=== PATIENT | female | born 1950 | race Caucasian/White ===

== ENCOUNTER 2022-05-25 12:16 | Inpatient (IN) | payer MEDICARE, BC, SELFPAY ==
[2022-05-25] VITALS (15 sets, daily range): BP systolic 98–144; BP diastolic 43–90; PULSE 68–82; RESP 12–20; TEMP 35.5–36.7; O2SAT 94–100; BMI 30.4; BMI 31.2
--- NOTE | 2022-05-25 12:26 | ED.RN ---
PT REQUESTING PAIN MEDS STATING THE [employer] [facility] [place] DID NOT DO ANYTHING. EXPLAINED THAT THE NEEDED TO SEE HER FIRST AND THEY WOULD BE CINDY THAT WE WERE A LITTLE BUSY. BUT IS ANYONE BAD ME? I KNOW YOUR SUPPOSED TO TAKE THE MOST SERIOUS FIRST!
--- NOTE | 2022-05-25 12:48 | EDS_ITS ---
HPI History of Present Illness HPI Narrative: 71-year-old female tripped over her dog fell down 3-4 steps injuring her right ankle. Denies hitting her head. No LOC. Denies other complaints. Brought in by squad. Treated with pain medication prior to arrival. Chief Complaint: Lower Extremity Injury Informant: patient and family Occured/Mechanism Mechanism/Context: Yes injury and Yes blunt trauma Onset/Context/Timing Onset: Today Context: Sudden Onset Timing: Continuous Quality of Pain: Sharp and Stabbing Current Severity: Severe Maximum Severity: Severe Associated Symptoms Associated Symptoms: Positive for Loss of Funtion; Negative for Parasthesia or Weakness Narrative Narrative: 71-year-old female history of diabetes and renal insufficiency. States she is from out of town. She is watching her daughter's dogs while her daughter is on vacation. She tripped over one of the dogs when she was walking on the steps and fell down 3-4 steps injuring her right ankle. She denies hitting her head or having any LOC. Denies other complaints. Is having severe pain to her right ankle. Prior similar symptoms: No Recent Illness/Hospitalization: No PFSH PFSH Medical History (Updated 05/25/22 @ 15:[address] Lei Land MD) Diabetes Renal insufficiency Allergy/AdvReac Type Severity Reaction Status Date / Time No Known Allergies Allergy Verified 05/25/22 12:18 Social History Smoking Status: Smoker, status unknown ROS ROS ED ROS Narrative Denies recent illness. Review of Systems ROS Unobtainable: Denies due to encephalopathy Constitutional Constitutional ED: Denies chills or fever(s) Eyes Eyes: Denies blurry vision ENT ENT ED: Denies ear pain Cardiovascular Cardiovascular: Denies chest pain Respiratory/Chest Respiratory/Chest: Denies cough Gastrointestinal Gastrointestinal: Denies abdominal pain Genitourinary Genitourinary ED: Denies dysuria Musculoskeletal Musculoskeletal: Denies arthralgias Integumentary Denies abscess Neurologic Neurologic: Denies headache(s) Psychiatric Psychiatric: Denies anxiety Endocrine Endocrinology: Denies polydipsia Hematologic/Lymphatic Hematologic/Lymphatic: Denies easy bleeding Allergic/Immunologic Allergic/Immunologic ED: Denies mouth swelling or tongue swelling EXAM Physical Exam Narrative Exam Narrative: 71-year-old female lying in bed. She has an air splint on her right lower extremity. Complaining of pain. Vital signs are stable and afebrile. Blood pressure 144/61. Pulse ox 99% on room air no hypoxia. H EENT exam unremarkable atraumatic. Pupils round reactive light. Speaking normally. C-spine trachea midline nontender. Spine nontender. Lungs clear. Heart regular rhythm no murmur. Rate about 75. Chest wall and ribs nontender. Abdomen soft nontender. No peritoneal signs. Pelvic girdle intact. Hips are nontender. There is no rotation or shortening. She has significant tenderness and deformity of her right ankle. Is inverted medially. There is an abrasion to the skin anteriorly. The right hip right knee and proximal lower leg are nontender. Neurologically she is awake and alert. She will not move the right foot and ankle due to pain. Otherwise she has no gross motor deformities. Const Vital Signs: 05/25/22 12:18 05/25/22 12:33 05/25/22 13:22 Temperature 96 F L Temperature Source Temporal Pulse Rate 76 76 79 Pulse Rate [1 (Initial Baseline)] Pulse Rate [2] Pulse Rate [3] Pulse Rate [4] Pulse Rate [5] Pulse Rate [6] Pulse Rate [7] Respiratory Rate 14 18 20 H Respiratory Rate [1 (Initial Baseline)] Respiratory Rate [2] Respiratory Rate [3] Respiratory Rate [4] Respiratory Rate [5] Respiratory Rate [6] Respiratory Rate [7] Blood Pressure 135/68 H 144/61 H 130/57 H Blood Pressure [1 (Initial Baseline)] Blood Pressure [2] Blood Pressure [3] Blood Pressure [4] Blood Pressure [5] Blood Pressure [6] Blood Pressure [7] Blood Pressure Mean 90 88 81 Pulse Ox 94 99 100 Oxygen Delivery Method Room Air Room Air Room Air Oxygen Delivery Method [1 (Initial Baseline)] Oxygen Delivery Method [2] Oxygen Delivery Method [3] Oxygen Delivery Method [4] Oxygen Delivery Method [5] Oxygen Delivery Method [6] Oxygen Flow Rate (L/min) [1 (Initial Baseline)] Oxygen Flow Rate (L/min) [2] Oxygen Flow Rate (L/min) [3] Oxygen Flow Rate (L/min) [4] Oxygen Flow Rate (L/min) [5] Oxygen Flow Rate (L/min) [6] 05/25/22 13:22 05/25/22 14:05 05/25/22 13:24 Temperature Temperature Source Pulse Rate 78 Pulse Rate [1 (Initial Baseline)] 77 Pulse Rate [2] 82 Pulse Rate [3] 82 Pulse Rate [4] 77 Pulse Rate [5] 76 Pulse Rate [6] 75 Pulse Rate [7] 72 Respiratory Rate 18 Respiratory Rate [1 (Initial Baseline)] 20 H Respiratory Rate [2] 18 Respiratory Rate [3] 18 Respiratory Rate [4] 18 Respiratory Rate [5] 18 Respiratory Rate [6] 16 Respiratory Rate [7] 18 Blood Pressure 133/60 H Blood Pressure [1 (Initial Baseline)] 130/57 H Blood Pressure [2] 128/86 H Blood Pressure [3] 128/86 H Blood Pressure [4] 140/56 H Blood Pressure [5] 135/50 H Blood Pressure [6] 118/50 L Blood Pressure [7] 134/60 H Blood Pressure Mean 84 Pulse Ox 98 Oxygen Delivery Method Room Air Room Air Oxygen Delivery Method [1 (Initial Baseline)] Nasal Cannula Oxygen Delivery Method [2] Nasal Cannula Oxygen Delivery Method [3] Nasal Cannula Oxygen Delivery Method [4] Nasal Cannula Oxygen Delivery Method [5] Nasal Cannula Oxygen Delivery Method [6] Nasal Cannula Oxygen Flow Rate (L/min) [1 (Initial Baseline)] 6 Oxygen Flow Rate (L/min) [2] 6 Oxygen Flow Rate (L/min) [3] 6 Oxygen Flow Rate (L/min) [4] 6 Oxygen Flow Rate (L/min) [5] 6 Oxygen Flow Rate (L/min) [6] 3 Positive well nourished and well developed; Negative for cachectic, contractures or unkempt General Appearance ED: well developed and NAD; Negative for unkempt, cachectic or contractures Nutritional Appearance: Negative for cachectic HEENT Reports moist mucous membranes normocephalic and atraumatic; Negative for trauma or tenderness Eyes PERRL Neck full ROM and supple Thyroid: Negative for tender Lymph Lymphatic: Negative for other Chest Wall inspection of chest normal and palpation of chest normal Chest: Negative for other Resp normal respiratory effort, no retractions and clear to auscultation bilaterally Effort and Inspection: Negative for pain with movement Auscultation: Negative for rales, rhonchi or wheezes Cardio regular rate, regular rhythm, S1 normal heart sound, S2 normal heart sound and no murmurs GI non-tender, non-distended and no masses Inspection: Negative for abdominal distention Auscultation: normoactive bowel sounds Palpation: soft; Negative for tender or guarding Back/Spine no CVA tenderness General Back: Negative for CVA tenderness Cervical Spine: Negative for cervical spine tenderness Thoracic Spine / Upper Back: Negative for thoracic spinal tenderness Lumbar Spine / Lower Back: Negative for lumbar spinal tenderness Extremity normal to inspection and full ROM Extremity Narrative: Except the right ankle is obviously fractured and deformed. Very tender. Foot is warm to the touch. Neuro oriented x3 Sensorium / Orientation: alert, oriented to person, oriented to place and oriented to time Motor Exam: strength 5/5 throughout Psych mental status grossly normal Appearance: Negative for unkempt Speech: No other Mood & Affect: Negative for anxious Skin no wounds Skin Narrative: Abrasion right anterior ankle. Lesions: no lesions Rashes: no rashes Trauma: abrasion MDM MDM MDM Narrative Medical decision making narrative: 71-year-old fall suspect right ankle fracture may be a fracture or dislocation. She will be given morphine and Zofran for pain and nausea. X-ray being obtained of the right ankle and foot. Patient was procedurally sedated with propofol. Initially 60 mg in and 40 more for a total of 100. I was able to reduce the ankle dislocation. She was placed in a well-padded posterior splint. She has a very strong DP pulse post reduction. The foot is warm and pink. She has normal sensation. She was under procedural sedation for 10 to 15 minutes. She is now awake and alert. She has been given additional pain medication including morphine and fentanyl. Patient is doing well at 3:25 PM. I discussed at length with both her and her son. She will be admitted for pain control. I spoke with Dr. Peters on-call for podiatry. He will admit the patient. Hospitalist will be consulted for medical management. Screening labs were sent including a CBC and chemistry. Currently the patient is resting comfortably in bed son at bedside. Radiography Diagnostic Testing: Clinical Impression(s) from Imaging Studies Ankle X-Ray 05/25/22 12:50 IMPRESSION: 1. The talus is laterally dislocated from the navicular bone and has an abnormal orientation in regards to the calcaneus. Several bony densities overlie the medial malleolus region, and it is not clear if this represents a fracture fragment or a developmental ossicle due to the bony overlap. 2. Repeat examination after reduction recommended or further assessment with noncontrast CT. Electronically Signed: Jose Manuel Shea MD at 13:34 EST Reading Location ID and State: [address] [place] [address] , Service support , Foot X-Ray 05/25/22 12:50 IMPRESSION: 1. The talus is laterally dislocated from the navicular bone and has an abnormal orientation in regards to the calcaneus. Several bony densities overlie the medial malleolus region, and it is not clear if this represents a fracture fragment or a developmental ossicle due to the bony overlap. Electronically Signed: Jose Manuel Shea MD at 13:38 EST Reading Location ID and State: [address] [place] [address] , Service support , Tibia/Fibula X-Ray 05/25/22 12:50 IMPRESSION: 1. Dislocation injury of the ankle described under 2 separate report 2. Normal x-ray examination of the tibia and fibula. Electronically Signed: Jose Manuel Shea MD at 13:40 EST Reading Location ID and State: [address] [place] [address] , Service support , Ankle X-Ray 05/25/22 13:40 IMPRESSION: 1. The previously dislocated talus from the navicular bone has been reduced with now normal articulation of the talonavicular space. 2. Medial and lateral malleoli small avulsive fractures are present in the undersurface regions. 3. A comminuted fracture of the mid to posterior aspect of the talus is also visualized. Electronically Signed: Jose Manuel Shea MD at 15:05 EST Reading Location ID and State: [address] [place] [address] , Service support , Lower Extremity CT 05/25/22 13:48 IMPRESSION: 1. Status post reduction of the talus which now demonstrates normal articulation with the navicular bone 2. Comminuted fracture of the body of the talus 3. Chip fracture at the anterior dorsal surface of the talus 4. Medial and lateral malleoli fractures Tiny corner fracture at the anterior aspect of the calcaneus Electronically Signed: Jose Manuel Shea MD at 14:57 EST Reading Location ID and State: [address] [place] [address] , Service support , Right ankle x-ray 3 views interpreted by myself shows a subtalar dislocation. No obvious fracture on the initial films. But from the concern for talus fracture versus other fractures are not visualized at this time. Repeat right ankle x-ray postreduction the reduction looks good. There does appear to be comminuted talus fracture. CAT scan pending. CAT scan of the right ankle shows comminuted talus fracture. Successful reduction of the dislocation. Avulsion fracture of the medial lateral malleolus is read by the radiologist. Right foot x-ray 3 views interpreted by myself shows the subtalar dislocation. There are no fractures visualized in the foot otherwise. Tib-fib x-ray on the right 4 views interpreted myself and the radiologist shows the subtalar dislocation but no fractures. All the films were read both by myself and the radiologist. Procedures Lower Extremity Splints Lower Extremity Splint: Orthoglass Splint Fabrication: Fabricated Location: Right Procedural Sedation Right ankle subtalar dislocation with procedural sedation: Consent Signed: Yes Any Problems With Anesthesia: No You/Your family experience fever (hyperthermia) w/anesthesia: No Sedation medication: Propofol Dose: 100 Route: IV Total Moderate Sedation Units: 10 Mallampati Score: Class II ASA Classification: II Comment:: Patient has a right ankle dislocation. He was treated with initially 60 mg of propofol and then 40 more. When appropriate procedural sedation was obtained I was able to manually using traction reduce the ankle. She was placed in a well- padded short leg posterior splint. She did have anterior ankle abrasions. No significant lacerations. She has a very palpable DP pulse after the reduction. The foot is warm and pink. She has normal sensation. She tolerated the procedural sedation quite well. She was also treated with morphine for pain. Discharge Plan Triage Chief Complaint: Lower Extremity Injury ED Provider: Lei Land Dx/Rx/DC Orders Clinical Impression: Fall, Ankle fracture, right, Closed dislocation of right ankle Primary Care Provider: Care Physician,No Primary Referrals: Care Physician,No Primary [Primary Care Provider] - Disposition Disposition: Acute Care Hospital [facility]
--- NOTE | 2022-05-25 12:50 | RAD_ITS ---
STUDY: X-RAY - RIGHT ANKLE REASON FOR EXAM: Female, 71 years old. trauma FELL DOWN THE STAIRS, DEFORMITY TECHNIQUE: 3 view(s) of the ankle. COMPARISON: None. FINDINGS: The talus is laterally dislocated from the navicular bone and has an abnormal orientation in regards to the calcaneus. Several bony densities overlie the medial malleolus region, and it is not clear if this represents a fracture fragment or a developmental ossicle due to the bony overlap. Normal visualized distal tibia and fibula. Normal medial and lateral malleoli. Normal tibiotalar articulation and ankle mortise. The visualized subtalar,calcaneocuboid and tarsal articulations are normal. The soft tissue structures are unremarkable. RAD/Ankle min 3 Views IMPRESSION: 1. The talus is laterally dislocated from the navicular bone and has an abnormal orientation in regards to the calcaneus. Several bony densities overlie the medial malleolus region, and it is not clear if this represents a fracture fragment or a developmental ossicle due to the bony overlap. 2. Repeat examination after reduction recommended or further assessment with noncontrast CT. Electronically Signed: Jose Manuel Shea MD at 13:34 EST ,
--- NOTE | 2022-05-25 12:50 | RAD_ITS ---
STUDY: X-RAY - RIGHT FOOT CLINICAL: Female, 71 years old. trauma TECHNIQUE: 3 view(s) of the foot. COMPARISON: Right ankle x-ray dated May 25, 2022 FINDINGS: The talus is laterally dislocated from the navicular bone and has an abnormal orientation in regards to the calcaneus. Several bony densities overlie the medial malleolus region, and it is not clear if this represents a fracture fragment or a developmental ossicle due to the bony overlap. Normal metatarsi. Normal metatarsophalangeal joint of the great toe. Normal tibial and fibular sesamoid bones. Normal interphalangeal joint of the great toe. Normal phalanges of the great toe. Normal second through fifth metatarsophalangeal joints. Normal interphalangeal joints and phalanges of the lesser toes. The soft tissue structures are unremarkable. RAD/Foot min 3 Views IMPRESSION: 1. The talus is laterally dislocated from the navicular bone and has an abnormal orientation in regards to the calcaneus. Several bony densities overlie the medial malleolus region, and it is not clear if this represents a fracture fragment or a developmental ossicle due to the bony overlap. Electronically Signed: Jose Manuel Shea MD at 13:38 EST ,
--- NOTE | 2022-05-25 12:50 | RAD_ITS ---
STUDY: X-RAY - RIGHT TIBIA AND FIBULA REASON FOR EXAM: Female, 71 years old. FELL DOWN THE STAIRS, DEFORMITY TECHNIQUE: 4 view(s) of the tibia and fibula were obtained. COMPARISON: Right ankle and foot x-rays on the same day FINDINGS: The talus is laterally dislocated from the navicular bone and has an abnormal orientation in regards to the calcaneus. Several bony densities overlie the medial malleolus region, and it is not clear if this represents a fracture fragment or a developmental ossicle due to the bony overlap. Normal visualized tibia. Normal visualized fibula. The soft tissue structures are unremarkable. RAD/Tibia & Fibula 2 Views IMPRESSION: 1. Dislocation injury of the ankle described under 2 separate report 2. Normal x-ray examination of the tibia and fibula. Electronically Signed: Jose Manuel Shea MD at 13:40 EST ,
[2022-05-25] MEDS: Ondansetron 4 MG/2 ML Vial IV (12:56)
[2022-05-25] MEDS: morphine 8 MG/ML Syringe IV (12:56)
--- NOTE | 2022-05-25 13:03 | ED.RN ---
THIS RN INTO ROOM IMMEDIATELY AFTER PAIN MEDICATION ORDERED. RADIOLOGY IN ROOM FILMING PT. PT SON AT [employer]ORWAY. SON LOOKS AT THIS RN AND STATES DO YOU HAVE PAIN MEDICATION?'. THIS RN REPLIES YES. SON STATES WHY ARE YOU NOT IN THE ROOM GIVING IT THIS RN ATTEMPTS TO TELL SON THAT THIS RN CANNOT GO IN WHILE THEY ARE DOING X-RAYS. SON POINTS FINGER IN THIS NURSES FACE AND STATES I DON'T CARE ABOUT THAT, GO IN THE ROOM. CHARGE NURSE AWARE. STEPHY BARNARD TO BEDSIDE
--- NOTE | 2022-05-25 13:40 | RAD_ITS ---
STUDY: X-RAY - RIGHT ANKLE REASON FOR EXAM: Female, 71 years old. post reduction TECHNIQUE: 3 view(s) of the ankle. COMPARISON: Initial x-ray of the right ankle dated May 25, 2022 at 12:[address] of the right ankle dated May 25, 2022. FINDINGS: The previously dislocated talus from the navicular bone has been reduced with now normal articulation of the talonavicular space. Medial and lateral malleoli small avulsive fractures are present in the undersurface regions. A comminuted fracture of the mid to posterior aspect of the talus is also visualized. New splint material is seen around the lower leg and ankle. Normal visualized distal tibia and fibula. Normal tibiotalar articulation and ankle mortise. The visualized subtalar, talonavicular, calcaneocuboid and tarsal articulations are normal. RAD/Ankle min 3 Views IMPRESSION: 1. The previously dislocated talus from the navicular bone has been reduced with now normal articulation of the talonavicular space. 2. Medial and lateral malleoli small avulsive fractures are present in the undersurface regions. 3. A comminuted fracture of the mid to posterior aspect of the talus is also visualized. Electronically Signed: Jose Manuel Shea MD at 15:05 EST ,
--- NOTE | 2022-05-25 13:48 | CT_ITS ---
STUDY: CT RIGHT ANKLE WITHOUT CONTRAST REASON FOR EXAM: Female, 71 years old. RT ANKLE DEFORMITY. FELL DOWN STAIRS. Fracture dislocation RADIATION DOSAGE (If Supplied By Facility): CTDIvol = ( 15.35 ) mGy, DLP = ( 392.14 ) mGycm TECHNIQUE: Thin section transaxial imaging of the ankle was obtained, with sagittal and coronal reconstructed images. Individualized dose optimization techniques were used for this CT. COMPARISON: Right ankle x-ray dated May 25, 2022 FINDINGS: A large vertical fracture is present through the full width and mid to medial aspect of the body of the talus resulting in rotation and displacement of the posterior process of the talus and some smaller displaced fragments. The previously dislocated talus from the navicular bone has been reduced with now normal articulation of the talonavicular space. A small chip fracture is present at the dorsal and anterior aspect of the talus most likely due to the prior dislocation injury. The talocalcaneal ligament is also partially torn and with multiple small avulsed bony fragments from the undersurface and anterior process of the talus due to avulsion fractures. There are acute avulsive fractures at the periphery and undersurface of the lateral malleolus as well with small displaced bony fragments. A small acute corner fracture is present in the far anterior aspect of the anterior process of the calcaneus. A small avulsive fracture of the undersurface of the medial malleolus is also present with slightly displaced bony fragments. Moderate edema and subcutaneous hematoma formation is present around the ankle joint. The Achilles tendon is grossly intact. The visualized aspects of the remaining tarsal bones and metatarsal bones are unremarkable. Normal talus, calcaneus, navicular and cuboid tarsal bones. Normal subtalar, talonavicular and calcaneocuboid articulations. Normal navicular-cuneiform, cuneiform tarsal bones and intercuneiform articulations. Normal tarsometatarsal articulations and visualized metatarsi. CT/Extremity Lower without Contra IMPRESSION: 1. Status post reduction of the talus which now demonstrates normal articulation with the navicular bone 2. Comminuted fracture of the body of the talus 3. Chip fracture at the anterior dorsal surface of the talus 4. Medial and lateral malleoli fractures Tiny corner fracture at the anterior aspect of the calcaneus Electronically Signed: Jose Manuel Shea MD at 14:57 EST ,
[2022-05-25] MEDS: Propofol 200 MG/20 ML Vial 60 MG IV BOLUS (13:53)
[2022-05-25] MEDS: fentaNYL 100 MCG/2 ML Ampul 50 MCG IV (13:54)
[2022-05-25] MEDS: Propofol 200 MG/20 ML Vial 40 MG IV BOLUS (13:54)
--- NOTE | 2022-05-25 14:01 | ED.RN ---
THIS RN ATTEMPTED TO UPDATE SON ON MOTHERS CONDITION.SON REFUSES TO ACKNOWLEDGE THIS NURSE ,REFUSES TO SPEAK. PT AWARE CT ORDERED.
--- NOTE | 2022-05-25 14:04 | ED.RN ---
PER [employer] HELPER. PT SON WAS INFORMED BY [employer] OFFICER THAT IF 1 MORE INCIDENT OCCURRED IN THE DEPARTMENT HE WOULD BE ASKED TO LEAVE.
--- NOTE | 2022-05-25 14:36 | ED.RN ---
THIS RN AND PICC NURSE PLACED TA FOR PT COMFORT. DR HENSLEY IN ROOM TO DISCUSS PLAN MOVING FORWARD. PT RESTING AT THIS TIME
[2022-05-25] MEDS: 0.9% Normal Saline 1,000 ML 100 ML IV (15:57)
--- NOTE | 2022-05-25 16:08 | PN.HOSP_ITS ---
Reason for Visit Reason for Visit: Consult for medical management: Subjective Subjective 71-year-old female with past medical history of type II DM, hypertension, hyperlipidemia, anxiety/depression who is visiting from [place]. Patient is taking care of her daughter's dogs while stay away for vacation n. She was trying to come down the staircase holding a computer when she almost stepped on one of the dogs. She had 4 steps to reach to the ground. She missed a step and tumbled down. She landed on her right foot and fell. She called her grandson to call the ambulance. Pain is fairly controlled at time of being admitted. She denied any fever or chills. Objective Data Objective Data Vital Signs: Vital Signs Temp Pulse Resp BP Pulse Ox O2 Del Method O2 Flow Rate 97.8 F 70 12 98/61 98 Room Air 96 05/25/22 15:58 05/25/22 16:00 05/25/22 16:00 05/25/22 16:00 05/25/22 16:00 05/25/22 16:00 05/25/22 14:45 Oxygen Flow Rate (L/min) [6] 3 Oxygen Flow Rate (L/min) [5] 6 Oxygen Flow Rate (L/min) [4] 6 Oxygen Flow Rate (L/min) [3] 6 Oxygen Flow Rate (L/min) [2] 6 Oxygen Flow Rate (L/min) [1 ( 6 Initial Baseline)] Oxygen Flow Rate (L/min) 96 Oxygen Delivery Method [6] Nasal Cannula Oxygen Delivery Method [5] Nasal Cannula Oxygen Delivery Method [4] Nasal Cannula Oxygen Delivery Method [3] Nasal Cannula Oxygen Delivery Method [2] Nasal Cannula Oxygen Delivery Method [1 ( Nasal Cannula Initial Baseline)] Oxygen Delivery Method Room Air Weight: 83.007 kg Body Mass Index (BMI) 30.4 Intake & Output: Intake and Output for Last 24 Hours 05/23/22 05/24/22 05/25/22 23:59 23:59 23:59 Intake Total 500 / 500 Balance 500 / 500 Lab / Micro Data Result Diagrams: 05/25/22 15:52 05/25/22 15:52 Radiography Diagnostic Testing: Radiology Impression Ankle X-Ray 05/25/22 12:50 IMPRESSION: 1. The talus is laterally dislocated from the navicular bone and has an abnormal orientation in regards to the calcaneus. Several bony densities overlie the medial malleolus region, and it is not clear if this represents a fracture fragment or a developmental ossicle due to the bony overlap. 2. Repeat examination after reduction recommended or further assessment with noncontrast CT. Electronically Signed: Jose Manuel Shea MD at 13:34 EST Reading Location ID and State: [address] [place] [address] , Service support , Foot X-Ray 05/25/22 12:50 IMPRESSION: 1. The talus is laterally dislocated from the navicular bone and has an abnormal orientation in regards to the calcaneus. Several bony densities overlie the medial malleolus region, and it is not clear if this represents a fracture fragment or a developmental ossicle due to the bony overlap. Electronically Signed: Jose Manuel Shea MD at 13:38 EST Reading Location ID and State: [address] [place] [address] , Service support , Tibia/Fibula X-Ray 05/25/22 12:50 IMPRESSION: 1. Dislocation injury of the ankle described under 2 separate report 2. Normal x-ray examination of the tibia and fibula. Electronically Signed: Jose Manuel Shea MD at 13:40 EST Reading Location ID and State: [address] [place] [address] , Service support , Ankle X-Ray 05/25/22 13:40 IMPRESSION: 1. The previously dislocated talus from the navicular bone has been reduced with now normal articulation of the talonavicular space. 2. Medial and lateral malleoli small avulsive fractures are present in the undersurface regions. 3. A comminuted fracture of the mid to posterior aspect of the talus is also visualized. Electronically Signed: Jose Manuel Shea MD at 15:05 EST Reading Location ID and State: [address] [place] [address] , Service support , Lower Extremity CT 05/25/22 13:48 IMPRESSION: 1. Status post reduction of the talus which now demonstrates normal articulation with the navicular bone 2. Comminuted fracture of the body of the talus 3. Chip fracture at the anterior dorsal surface of the talus 4. Medial and lateral malleoli fractures Tiny corner fracture at the anterior aspect of the calcaneus Electronically Signed: Jose Manuel Shea MD at 14:57 EST Reading Location ID and State: [facility] / [place] , Service support , Physical Exam Narrative Physical exam: General: Alert, Oriented x3, Cooperative HEENT: Atraumatic Oral: Moist Mucosa Neck: Supple Lungs: Clear to auscultation Cardiovascular: HS I+II, regular, no murmurs Abdomen: Bowel Sounds Present, Soft, Non Tender Extremities: Right lower extremity in partial cast/[id number] Skin: No rashes, No breakdown Neurological: Grossly intact Psych/Mental Status: Appropriate Assessment & Plan Assessment/Plan (1) Fracture of body of right talus: PLAN: Plan 1. Acute comminuted fracture of the body of the talus, with displacement, Traumatic, status post fall, status post reduction Pain is fairly controlled, continue with pain control and other recommendations from podiatry 2. Type II DM, insulin-dependent, with peripheral neuropathy Continue on Basaglar 20 units twice daily, Januvia Continue with blood glucose checks and insulin sliding scale Continue on gabapentin 3. REG vs CKD, unknown previous creatinine, patient admitted with creatinine 1.71 Continue on IV fluids, trend labs in a.m. 4. Anemia, microcytic microchromic, unknown previous hemoglobin We will check iron stores, reticulocyte count, trend labs in am 5. Hyperlipidemia, continue statin 6. Depression, continue Paxil, trazodone 7. DVT PPx- per primary podiatry team Charges/Coding Visit Charges Inpatient E&M: 76658 Init Hosp L3
[2022-05-25 16:11] LABS: Absolute Lymphocyte Count 2.02 X10^3/uL (0.83-4.51); Absolute Neutrophil Count 6.3 X10^3/uL (2.0-7.7); Basophil# 0.06 X10^3/uL; Basophil% 0.7 % (0-1); Eosinophil# 0.22 X10^3/uL; Eosinophils% 2.4 % (0-5); Hematocrit 33.1 % (37-47); Hemoglobin 10.7 g/dL (12.0-15.0); Lymphocyte # 2.02 X10^3/ul (0.83-4.51); Lymphocyte % 22.2 % (19-41); Mean Corp Hgb Conc 32.3 g/dL (32-36); Mean Corpuscular Hgb 30.7 pg (27.0-32.0); Mean Corpuscular Volume 95.1 fL (81-99); Mean Platelet Vol. 9.8 fl (6.2-12.0); Monocyte# 0.51 X10^3/uL; Monocyte% 5.6 % (0-10); NRBC Flagged by Analyzer 0 % (0-5); Neutrophil # 6.27 X10^3/uL (2.7-7.7); Neutrophil % 68.8 % (47-70); Platelet Count 254 K/mm3 (150-450); RBC Distribution Width CV 12.2 % (11.6-14.6); RBC Distribution Width SD 42.6 fl (35.1-43.9); Red Blood Count 3.48 M/mm3 (4.2-5.4); White Blood Count 9.1 K/mm3 (4.4-11.0)
[2022-05-25 16:26] LABS: Anion Gap 3 (5-15); BUN 23 mg/dL (7-18); BUN/Creat Ratio 13.5 RATIO (10-20); Calcium,Total 8.3 mg/dL (8.5-10.1); Chloride 109 mmol/L (98-107); Creatinine, Serum 1.71 mg/dL (0.55-1.02); EST Glomerular Filtration Rate 31 mL/min (>60); Est Glom Filt Rate - Afr Amer 38 mL/min (>60); Estimated Creatinine Clearance 27.15 ml/min; Glucose 334 mg/dL (74-106); Potassium 4.8 mmol/L (3.5-5.1); Sodium Level 140 mmol/L (136-145)
--- NOTE | 2022-05-25 16:27 | PCM.HP.STD ---
HPI - General General Date of Admission: 05/25/22 HPI Narrative NINA HARDWICK, is a 71 F who presents today a few hours after tripping and falling down the stairs. Patient suffered an acute axial load and dislocated her ankle. Patient presented to the ED in severe pain, but appears comfortable after reduction. Patient denies any loss of sensation to her feet, intractable pain and maintains ability to wiggle her digits. Patient denies hitting her head and denies any other injuries at this time. No other complaints. [facility] Medical History Diabetes Renal insufficiency Home Medications atorvastatin 40 mg tablet 20 mg PO QHS cholesterol 05/25/22 [History Last Taken Unknown] atorvastatin 40 mg tablet 40 mg PO DAILY cholesterol 05/25/22 [History Last Taken Unknown] cyclobenzaprine 10 mg tablet 10 mg PO BID muscle relaxer 05/25/22 [History Last Taken Unknown] gabapentin 600 mg tablet 600 mg PO BID neuropathy 05/25/22 [History Last Taken Unknown] insulin glargine 100 unit/mL (3 mL) subcutaneous pen (Basaglar KwikPen U-100 Insulin) 20 unit subcut BID diabetes 05/25/22 [History Last Taken Unknown] meloxicam 15 mg tablet 15 mg PO DAILY anti inflammatory 05/25/22 [History Last Taken Unknown] paroxetine HCl 30 mg tablet 30 mg PO DAILY antidepressant 05/25/22 [History Last Taken Unknown] sitagliptin phosphate 100 mg tablet (Januvia) 100 mg PO DAILY diabetes 05/25/22 [History Last Taken Unknown] trazodone 50 mg tablet 50 mg PO QHS sleep 05/25/22 [History Last Taken Unknown] Allergy/AdvReac Type Severity Reaction Status Date / Time No Known Allergies Allergy Verified 05/25/22 12:18 Social History Smoking Status: Smoker, status unknown ROS Constitutional Constitutional: Reports frequent falls; Denies change in weight or chills Eyes Eyes: Denies change in eye color, discongugate gaze or double vision ENT HEENT: Denies bleeding gums, ear pain or epistaxis Cardiovascular Cardiovascular: Denies abdominal edema, abdominal pain or chest pain at rest Respiratory/Chest Respiratory/Chest: Denies change in phlegm color, dusky skin or dyspnea Gastrointestinal Gastrointestinal: Denies belching, bloating or constipation Genitourinary Genitourinary: Denies anuria, burning urination or difficulty with ejaculations Musculoskeletal Musculoskeletal: Reports back pain, deformity and limited range of motion; Denies atrophy Integumentary Integumentary: Denies hirsutism, skin pain or skin ulcer Vital Signs Vital Signs Vital Signs: 05/25/22 12:18 05/25/22 12:33 05/25/22 13:22 Temperature 96 F L Temperature Source Temporal Pulse Rate 76 76 79 Pulse Rate [1 (Initial Baseline)] Pulse Rate [2] Pulse Rate [3] Pulse Rate [4] Pulse Rate [5] Pulse Rate [6] Pulse Rate [7] Respiratory Rate 14 18 20 H Respiratory Rate [1 (Initial Baseline)] Respiratory Rate [2] Respiratory Rate [3] Respiratory Rate [4] Respiratory Rate [5] Respiratory Rate [6] Respiratory Rate [7] Blood Pressure 135/68 H 144/61 H 130/57 H Blood Pressure [1 (Initial Baseline)] Blood Pressure [2] Blood Pressure [3] Blood Pressure [4] Blood Pressure [5] Blood Pressure [6] Blood Pressure [7] Blood Pressure Mean 90 88 81 Pulse Ox 94 99 100 Oxygen Delivery Method Room Air Room Air Room Air Oxygen Delivery Method [1 (Initial Baseline)] Oxygen Delivery Method [2] Oxygen Delivery Method [3] Oxygen Delivery Method [4] Oxygen Delivery Method [5] Oxygen Delivery Method [6] Oxygen Flow Rate (L/min) Oxygen Flow Rate (L/min) [1 (Initial Baseline)] Oxygen Flow Rate (L/min) [2] Oxygen Flow Rate (L/min) [3] Oxygen Flow Rate (L/min) [4] Oxygen Flow Rate (L/min) [5] Oxygen Flow Rate (L/min) [6] 05/25/22 13:22 05/25/22 14:05 05/25/22 14:15 Temperature Temperature Source Pulse Rate 78 Pulse Rate [1 (Initial Baseline)] 77 Pulse Rate [2] 82 Pulse Rate [3] 82 Pulse Rate [4] 77 Pulse Rate [5] 76 Pulse Rate [6] 75 Pulse Rate [7] 72 Respiratory Rate 18 Respiratory Rate [1 (Initial Baseline)] 20 H Respiratory Rate [2] 18 Respiratory Rate [3] 18 Respiratory Rate [4] 18 Respiratory Rate [5] 18 Respiratory Rate [6] 16 Respiratory Rate [7] 18 Blood Pressure 133/60 H Blood Pressure [1 (Initial Baseline)] 130/57 H Blood Pressure [2] 128/86 H Blood Pressure [3] 128/86 H Blood Pressure [4] 140/56 H Blood Pressure [5] 135/50 H Blood Pressure [6] 118/50 L Blood Pressure [7] 134/60 H Blood Pressure Mean 84 Pulse Ox 98 Oxygen Delivery Method Room Air Room Air Oxygen Delivery Method [1 (Initial Baseline)] Nasal Cannula Oxygen Delivery Method [2] Nasal Cannula Oxygen Delivery Method [3] Nasal Cannula Oxygen Delivery Method [4] Nasal Cannula Oxygen Delivery Method [5] Nasal Cannula Oxygen Delivery Method [6] Nasal Cannula Oxygen Flow Rate (L/min) Oxygen Flow Rate (L/min) [1 (Initial Baseline)] 6 Oxygen Flow Rate (L/min) [2] 6 Oxygen Flow Rate (L/min) [3] 6 Oxygen Flow Rate (L/min) [4] 6 Oxygen Flow Rate (L/min) [5] 6 Oxygen Flow Rate (L/min) [6] 3 05/25/22 13:24 05/25/22 14:30 05/25/22 14:45 Temperature 97.8 F Temperature Source Pulse Rate 73 Pulse Rate [1 (Initial Baseline)] Pulse Rate [2] Pulse Rate [3] Pulse Rate [4] Pulse Rate [5] Pulse Rate [6] Pulse Rate [7] Respiratory Rate 16 Respiratory Rate [1 (Initial Baseline)] Respiratory Rate [2] Respiratory Rate [3] Respiratory Rate [4] Respiratory Rate [5] Respiratory Rate [6] Respiratory Rate [7] Blood Pressure 130/66 H Blood Pressure [1 (Initial Baseline)] Blood Pressure [2] Blood Pressure [3] Blood Pressure [4] Blood Pressure [5] Blood Pressure [6] Blood Pressure [7] Blood Pressure Mean Pulse Ox 99 Oxygen Delivery Method Room Air Nasal Cannula Room Air Oxygen Delivery Method [1 (Initial Baseline)] Oxygen Delivery Method [2] Oxygen Delivery Method [3] Oxygen Delivery Method [4] Oxygen Delivery Method [5] Oxygen Delivery Method [6] Oxygen Flow Rate (L/min) 99 96 Oxygen Flow Rate (L/min) [1 (Initial Baseline)] Oxygen Flow Rate (L/min) [2] Oxygen Flow Rate (L/min) [3] Oxygen Flow Rate (L/min) [4] Oxygen Flow Rate (L/min) [5] Oxygen Flow Rate (L/min) [6] 05/25/22 14:15 05/25/22 14:20 05/25/22 14:25 Temperature Temperature Source Pulse Rate Pulse Rate [1 (Initial Baseline)] Pulse Rate [2] Pulse Rate [3] Pulse Rate [4] Pulse Rate [5] Pulse Rate [6] Pulse Rate [7] Respiratory Rate Respiratory Rate [1 (Initial Baseline)] Respiratory Rate [2] Respiratory Rate [3] Respiratory Rate [4] Respiratory Rate [5] Respiratory Rate [6] Respiratory Rate [7] Blood Pressure Blood Pressure [1 (Initial Baseline)] Blood Pressure [2] Blood Pressure [3] Blood Pressure [4] Blood Pressure [5] Blood Pressure [6] Blood Pressure [7] Blood Pressure Mean Pulse Ox Oxygen Delivery Method Room Air Room Air Room Air Oxygen Delivery Method [1 (Initial Baseline)] Oxygen Delivery Method [2] Oxygen Delivery Method [3] Oxygen Delivery Method [4] Oxygen Delivery Method [5] Oxygen Delivery Method [6] Oxygen Flow Rate (L/min) 96 98 98 Oxygen Flow Rate (L/min) [1 (Initial Baseline)] Oxygen Flow Rate (L/min) [2] Oxygen Flow Rate (L/min) [3] Oxygen Flow Rate (L/min) [4] Oxygen Flow Rate (L/min) [5] Oxygen Flow Rate (L/min) [6] 05/25/22 15:58 05/25/22 16:00 Temperature 97.8 F Temperature Source Oral Pulse Rate 71 70 Pulse Rate [1 (Initial Baseline)] Pulse Rate [2] Pulse Rate [3] Pulse Rate [4] Pulse Rate [5] Pulse Rate [6] Pulse Rate [7] Respiratory Rate 13 12 Respiratory Rate [1 (Initial Baseline)] Respiratory Rate [2] Respiratory Rate [3] Respiratory Rate [4] Respiratory Rate [5] Respiratory Rate [6] Respiratory Rate [7] Blood Pressure 100/60 98/61 Blood Pressure [1 (Initial Baseline)] Blood Pressure [2] Blood Pressure [3] Blood Pressure [4] Blood Pressure [5] Blood Pressure [6] Blood Pressure [7] Blood Pressure Mean 73 73 Pulse Ox 97 98 Oxygen Delivery Method Room Air Room Air Oxygen Delivery Method [1 (Initial Baseline)] Oxygen Delivery Method [2] Oxygen Delivery Method [3] Oxygen Delivery Method [4] Oxygen Delivery Method [5] Oxygen Delivery Method [6] Oxygen Flow Rate (L/min) Oxygen Flow Rate (L/min) [1 (Initial Baseline)] Oxygen Flow Rate (L/min) [2] Oxygen Flow Rate (L/min) [3] Oxygen Flow Rate (L/min) [4] Oxygen Flow Rate (L/min) [5] Oxygen Flow Rate (L/min) [6] Weight Weight: 83.007 kg Body Mass Index (BMI) 30.4 Physical Exam Narrative Splint not removed due to adequate reduction and concern to maintain reduction prior to surgical fixation Neurovascular: CFT brisk to all digits on right, light touch, protective and two point discriminatino intact to right foot. Patient able to actively move digits. Per [facility] Pulses intact/dermatologic intact. Musculoskeletal: Pain/guarding to right ankle. Const alert and oriented x3 Results Lab / Micro Data Result Diagrams: 05/25/22 15:52 05/25/22 15:52 Labs: Laboratory Results - last 24 hr 05/25/22 15:52: WBC 9.1, RBC 3.48 L, Hgb 10.7 L, Hct 33.1 L, MCV 95.1, MCH 30.7, MCHC 32.3, RDW Std Deviation 42.6, RDW Coeff of Barrie 12.2, Plt Count 254, MPV 9.8, Immature Gran % (Auto) 0.300, Neut % (Auto) 68.8, Lymph % (Auto) 22.2, [place] % (Auto) 5.6, Eos % (Auto) 2.4, Baso % (Auto) 0.7, Absolute Neuts (auto) 6.3, Absolute Lymphs (auto) 2.02, Nucleated RBC % 0 05/25/22 15:52: Sodium 140, Potassium 4.8, Chloride 109 H, Carbon Dioxide 28.0, Anion Gap 3 L, BUN 23 H, Creatinine 1.71 H, Estim Creat Clear Calc 27.15, Est GFR (MDRD) Af Amer 38 L, Est GFR (MDRD) Non-Af 31 L, BUN/Creatinine Ratio 13.5, Glucose 334 H, Calcium 8.3 L Radiology Impression Ankle X-Ray 05/25/22 12:50 IMPRESSION: 1. The talus is laterally dislocated from the navicular bone and has an abnormal orientation in regards to the calcaneus. Several bony densities overlie the medial malleolus region, and it is not clear if this represents a fracture fragment or a developmental ossicle due to the bony overlap. 2. Repeat examination after reduction recommended or further assessment with noncontrast CT. Electronically Signed: Jose Manuel Shea MD at 13:34 EST Reading Location ID and State: [place] , Service support , Foot X-Ray 05/25/22 12:50 IMPRESSION: 1. The talus is laterally dislocated from the navicular bone and has an abnormal orientation in regards to the calcaneus. Several bony densities overlie the medial malleolus region, and it is not clear if this represents a fracture fragment or a developmental ossicle due to the bony overlap. Electronically Signed: Jose Manuel Shea MD at 13:38 EST Reading Location ID and State: [place] [place] , Service support , Tibia/Fibula X-Ray 05/25/22 12:50 IMPRESSION: 1. Dislocation injury of the ankle described under 2 separate report 2. Normal x-ray examination of the tibia and fibula. Electronically Signed: Jose Manuel Shea MD at 13:40 EST Reading Location ID and State: [place] [place] , Service support , Ankle X-Ray 05/25/22 13:40 IMPRESSION: 1. The previously dislocated talus from the navicular bone has been reduced with now normal articulation of the talonavicular space. 2. Medial and lateral malleoli small avulsive fractures are present in the undersurface regions. 3. A comminuted fracture of the mid to posterior aspect of the talus is also visualized. Electronically Signed: Jose Manuel Shea MD at 15:05 EST , Lower Extremity CT 05/25/22 13:48 IMPRESSION: 1. Status post reduction of the talus which now demonstrates normal articulation with the navicular bone 2. Comminuted fracture of the body of the talus 3. Chip fracture at the anterior dorsal surface of the talus 4. Medial and lateral malleoli fractures Tiny corner fracture at the anterior aspect of the calcaneus Electronically Signed: Jose Manuel Shea MD at 14:57 EST , Assessment & Plan Assessment/Plan (1) Fracture of body of right talus: PLAN: Exam performed Post reduction CT/ankle films demonstrate relative reduction of ankle/STJ. There is a posterior body fracture that is rotated in the sagittal plane within the ankle mortise. Due to severity of the fracture, location within the body of the talus and concern for possible avascular necrosis. Plan is for surgical surgical reduction via closed reduction with external fixation and internal fixation using likely 2x4-0 screws. In order to get the hardware and everything aligned for the patient to proceed with the procedure we will plan for Friday morning at 8 AM. If we delay the case any later than this the risk of avascular necrosis to the talus increases significantly as this results in a poor outcome. Patient has a splint and is sitting comfortably. Splint was left intact to maintain patient comfort as we are going to stabilize it with external fixation tomorrow. Patient has no signs of compartment syndrome at this time. Patient will be admitted for pain management observation for compartment syndrome and surgical management of her talar body fracture. Hospitalist was consulted for medical management and surgical clearance. We will plan for surgical reduction in a.m. All inherent risks benefits alternative procedures discussed with patient in great detail. Due to ultimate risk of avascular necrosis of the talus this procedure should be performed as soon as possible to allow for reduction of the talus within the ankle mortise and prevent this morbidity associated with this outcome.
[2022-05-25 17:06] LABS: ALB/GLOB Ratio 0.9 RATIO (0.9-2.4); AST(SGOT) 11 U/L (15-37); Alanine Aminotransfer ALT/SGPT 22 U/L (13-56); Alkaline Phosphatase 76 U/L (45-117); Globulin 3.3 g/dL (2.2-4.2); Protein, Total 6.3 g/dL (6.4-8.2)
--- NOTE | 2022-05-25 17:50 | RAD_ITS ---
INDICATION: med clearance EXAMINATION/TECHNIQUE: X-RAY - XR Chest 2 Views COMPARISON: None. FINDINGS: LINES/DEVICES: None. LUNGS: No consolidation, edema or effusion. No pneumothorax. MEDIASTINUM AND CARDIOVASCULAR STRUCTURES: Cardiac silhouette not enlarged. Central airways and mediastinal contour are unremarkable. BONES AND SOFT TISSUES: Degenerative vertebral changes. RAD/Chest PA and Lateral IMPRESSION: No radiographic evidence of acute cardiopulmonary disease. Electronically Signed: Hernandez Poole DO at 17:22 EST ,
[2022-05-25] MEDS: oxyCODONE 5 MG Tablet 10 MG PO (18:35)
[2022-05-25 18:59] LABS: Ferritin 65 ng/mL (8-252); Iron 59 ug/dL (50-170); Iron Binding Capacity,Total 191 ug/dL (250-450); PERCENT IRON SATURATION 30.9 % (15.0-55.0)
[2022-05-25 19:15] LABS: Platelet Count 256 K/mm3 (150-450); RET-HE 35.1 pg (30-35); Reticulocyte Count 1.61 % (0.5-1.5)
[2022-05-25] MEDS: Insulin Lispro 100 UNIT/ML INSULN.PEN SC (21:03)
[2022-05-25] MEDS: Insulin Glargine-YFGN 100 UNIT/ML Pen 20 UNIT SC (21:04)
[2022-05-25] MEDS: Atorvastatin Calcium 40 MG Tablet PO (21:06)
[2022-05-25] MEDS: Gabapentin 600 MG Tablet PO (21:06)
[2022-05-25] MEDS: traZODone 50 MG Tablet PO (21:06)
[2022-05-25] MEDS: cycloBENZAPRine HCl 10 MG Tablet PO (21:06)
[2022-05-25] MEDS: Morphine 4 MG/ML Syringe IV (22:34)
[2022-05-25] MEDS: Acetaminophen 500 MG Tablet PO (22:35)
[2022-05-25] MEDS: 0.9% Saline Lock 10 ML Syringe IV (22:35)
[2022-05-25 23:05] LABS: Bedside Glucose 220 mg/dL (74-106)
[2022-05-26] VITALS (15 sets, daily range): BP systolic 108–135; BP diastolic 42–78; PULSE 62–92; RESP 12–20; TEMP 36.6–37.3; O2SAT 95–100; BMI 31.3
[2022-05-26] MEDS: oxyCODONE 5 MG Tablet 10 MG PO (02:12)
[2022-05-26] MEDS: 0.9% Normal Saline 1,000 ML 100 ML IV (02:13)
[2022-05-26 04:35] LABS: Absolute Lymphocyte Count 2.43 X10^3/uL (0.83-4.51); Absolute Neutrophil Count 5.6 X10^3/uL (2.0-7.7); Basophil# 0.06 X10^3/uL; Basophil% 0.7 % (0-1); Eosinophils% 4.3 % (0-5); Hematocrit 34.5 % (37-47); Hemoglobin 10.9 g/dL (12.0-15.0); Lymphocyte # 2.43 X10^3/ul (0.83-4.51); Lymphocyte % 26.4 % (19-41); Mean Corp Hgb Conc 31.6 g/dL (32-36); Mean Platelet Vol. 9.7 fl (6.2-12.0); Monocyte% 7.6 % (0-10); NRBC Flagged by Analyzer 0 % (0-5); Neutrophil # 5.61 X10^3/uL (2.7-7.7); Neutrophil % 60.9 % (47-70); Platelet Count 251 K/mm3 (150-450); RBC Distribution Width CV 12.4 % (11.6-14.6); RBC Distribution Width SD 44.5 fl (35.1-43.9); Red Blood Count 3.52 M/mm3 (4.2-5.4); White Blood Count 9.2 K/mm3 (4.4-11.0)
--- NOTE | 2022-05-26 05:00 | EKG12_ITS ---
Test Reason : AM EKG Blood Pressure : / mmHG Vent. Rate : 078 BPM Atrial Rate : 078 BPM P-R Int : 180 ms QRS Dur : 104 ms QT Int : 394 ms P-R-T Axes : 052 -49 096 degrees QTc Int : 449 ms Normal sinus rhythm Left anterior fascicular block Abnormal ECG No previous ECGs available Confirmed by MARINE IRVING, JASKARAN ([id number]), scientific editor AGNES STEELE ([id number]) on 05/28/2022 11:12:33 AM Referred By: CELSO Confirmed By:JASKARAN HAWTHORNE MD
[2022-05-26 05:03] LABS: ALB/GLOB Ratio 0.8 RATIO (0.9-2.4); AST(SGOT) 15 U/L (15-37); Alanine Aminotransfer ALT/SGPT 23 U/L (13-56); Albumin, Serum 2.7 g/dL (3.2-5.0); Alkaline Phosphatase 78 U/L (45-117); Anion Gap 4 (5-15); BUN 22 mg/dL (7-18); BUN/Creat Ratio 13.4 RATIO (10-20); Calcium,Total 8.3 mg/dL (8.5-10.1); Chloride 112 mmol/L (98-107); Creatinine, Serum 1.64 mg/dL (0.55-1.02); EST Glomerular Filtration Rate 33 mL/min (>60); Est Glom Filt Rate - Afr Amer 40 mL/min (>60); Estimated Creatinine Clearance 28.31 ml/min; Globulin 3.4 g/dL (2.2-4.2); Glucose 141 mg/dL (74-106); Potassium 4.4 mmol/L (3.5-5.1); Protein, Total 6.1 g/dL (6.4-8.2); Sodium Level 143 mmol/L (136-145)
[2022-05-26 08:11] LABS: Bedside Glucose 145 mg/dL (74-106)
--- NOTE | 2022-05-26 09:22 | PN.HOSP_ITS ---
Reason for Visit Reason for Visit: Right ankle pain Subjective Subjective Mrs. Espinosa is a 71-year-old white female who presented to the emergency department at [facility] on 05/25/2022 complaining of right ankle pain. She is in from out of town watching her daughter's dogs while her daughter is on vacation. She lives in [place]. She tripped over one of the dogs while she was walking onto the steps and fell down 3 steps injuring her right ankle. X-rays confirmed ankle fracture and dislocation and this was reduced in the emergency department. Podiatry was called to admit the patient and postreduction CT ankle for images demonstrate reduction of the ankle/STJ however there is a posterior body fracture of the right talus noted. Surgical intervention was planned due to the severity of the fracture, the location due to the potential development of avascular necrosis. Plan is for surgery today and we were consulted for medical management. Patient was seen postoperatively. I was called to the bedside after she came up from anesthesia because she was having some mild confusion and some jerking motions. She had no focal deficits. Patient denies any alcohol use. She was oriented to self, place, time except for the year at which time she told me was 1922 and present of the night states. She reports that she has had jerking motions before and had previously talked to her physician about this however I am unclear of the accuracy Objective Data Objective Data Vital Signs: Vital Signs Temp Pulse Resp BP Pulse Ox O2 Del Method O2 Flow Rate 97.8 F 69 18 108/42 L 95 Room Air 96 05/26/22 02:07 05/26/22 02:07 05/26/22 02:07 05/26/22 02:07 05/26/22 02:07 05/26/22 02:07 05/25/22 14:45 Oxygen Flow Rate (L/min) [6] 3 Oxygen Flow Rate (L/min) [5] 6 Oxygen Flow Rate (L/min) [4] 6 Oxygen Flow Rate (L/min) [3] 6 Oxygen Flow Rate (L/min) [2] 6 Oxygen Flow Rate (L/min) [1 ( 6 Initial Baseline)] Oxygen Flow Rate (L/min) 96 Oxygen Delivery Method [6] Nasal Cannula Oxygen Delivery Method [5] Nasal Cannula Oxygen Delivery Method [4] Nasal Cannula Oxygen Delivery Method [3] Nasal Cannula Oxygen Delivery Method [2] Nasal Cannula Oxygen Delivery Method [1 ( Nasal Cannula Initial Baseline)] Oxygen Delivery Method Room Air Weight: 85.275 kg Body Mass Index (BMI) 31.2 Intake & Output: Intake and Output for Last 24 Hours 05/24/22 05/25/22 05/26/22 23:59 23:59 23:59 Intake Total 500 / 500 1500 / 1500 Output Total 500 / 500 Balance 500 / 500 1000 / 1000 Lab / Micro Data Result Diagrams: 05/26/22 04:27 05/26/22 04:27 Labs: Laboratory Results - last 24 hr 05/25/22 15:52: WBC 9.1, RBC 3.48 L, Hgb 10.7 L, Hct 33.1 L, MCV 95.1, MCH 30.7, MCHC 32.3, RDW Std Deviation 42.6, RDW Coeff of Barrie 12.2, Plt Count 254, MPV 9.8, Immature Gran % (Auto) 0.300, Neut % (Auto) 68.8, Lymph % (Auto) 22.2, [place] % (Auto) 5.6, Eos % (Auto) 2.4, Baso % (Auto) 0.7, Absolute Neuts (auto) 6.3, Absolute Lymphs (auto) 2.02, Nucleated RBC % 0 05/25/22 15:52: Sodium 140, Potassium 4.8, Chloride 109 H, Carbon Dioxide 28.0, Anion Gap 3 L, BUN 23 H, Creatinine 1.71 H, Estim Creat Clear Calc 27.15, Est GFR (MDRD) Af Amer 38 L, Est GFR (MDRD) Non-Af 31 L, BUN/Creatinine Ratio 13.5, Glucose 334 H, Calcium 8.3 L, Total Bilirubin 0.20, AST 11 L, ALT 22, Alkaline Phosphatase 76, Total Protein 6.3 L, Albumin 3.0 L, Globulin 3.3, Albumin/Globulin Ratio 0.9 05/25/22 15:52: Retic Count 1.61 H, Immature Retic Fraction 14.00, Retic Hgb Equivalent 35.1 H 05/25/22 15:52: Iron 59, TIBC 191 L, Iron Saturation 30.9, Ferritin 65 05/25/22 21:02: POC Glucose 220 H 05/26/22 04:27: WBC 9.2, RBC 3.52 L, Hgb 10.9 L, Hct 34.5 L, MCV 98.0, MCH 31.0, MCHC 31.6 L, RDW Std Deviation 44.5 H, RDW Coeff of Barrie 12.4, Plt Count 251, MPV 9.7, Immature Gran % (Auto) 0.100, Neut % (Auto) 60.9, Lymph % (Auto) 26.4, [place] % (Auto) 7.6, Eos % (Auto) 4.3, Baso % (Auto) 0.7, Absolute Neuts (auto) 5.6, Absolute Lymphs (auto) 2.43, Nucleated RBC % 0 05/26/22 04:27: Sodium 143, Potassium 4.4, Chloride 112 H, Carbon Dioxide 27.0, Anion Gap 4 L, BUN 22 H, Creatinine 1.64 H, Estim Creat Clear Calc 28.31, Est GFR (MDRD) Af Amer 40 L, Est GFR (MDRD) Non-Af 33 L, BUN/Creatinine Ratio 13.4, Glucose 141 H, Calcium 8.3 L, Total Bilirubin 0.30, AST 15, ALT 23, Alkaline Phosphatase 78, Total Protein 6.1 L, Albumin 2.7 L, Globulin 3.4, Albumin/Globulin Ratio 0.8 L 05/26/22 04:27: Hemoglobin A1c 10.0 H 05/26/22 07:45: POC Glucose 145 H Radiography Diagnostic Testing: Radiology Impression Ankle X-Ray 05/25/22 12:50 IMPRESSION: 1. The talus is laterally dislocated from the navicular bone and has an abnormal orientation in regards to the calcaneus. Several bony densities overlie the medial malleolus region, and it is not clear if this represents a fracture fragment or a developmental ossicle due to the bony overlap. 2. Repeat examination after reduction recommended or further assessment with noncontrast CT. Electronically Signed: Jose Manuel Shea MD at 13:34 EST Reading Location ID and State: [facility] / [place] , Service support , Foot X-Ray 05/25/22 12:50 IMPRESSION: 1. The talus is laterally dislocated from the navicular bone and has an abnormal orientation in regards to the calcaneus. Several bony densities overlie the medial malleolus region, and it is not clear if this represents a fracture fragment or a developmental ossicle due to the bony overlap. Electronically Signed: Jose Manuel Shea MD at 13:38 EST Reading Location ID and State: [address] [place] [address] , Service support , Tibia/Fibula X-Ray 05/25/22 12:50 IMPRESSION: 1. Dislocation injury of the ankle described under 2 separate report 2. Normal x-ray examination of the tibia and fibula. Electronically Signed: Jose Manuel Shea MD at 13:40 EST Reading Location ID and State: [address] [place] [address] , Service support , Ankle X-Ray 05/25/22 13:40 IMPRESSION: 1. The previously dislocated talus from the navicular bone has been reduced with now normal articulation of the talonavicular space. 2. Medial and lateral malleoli small avulsive fractures are present in the undersurface regions. 3. A comminuted fracture of the mid to posterior aspect of the talus is also visualized. Electronically Signed: Jose Manuel Shea MD at 15:05 EST Reading Location ID and State: [address] [place] [address] , Service support , Lower Extremity CT 05/25/22 13:48 IMPRESSION: 1. Status post reduction of the talus which now demonstrates normal articulation with the navicular bone 2. Comminuted fracture of the body of the talus 3. Chip fracture at the anterior dorsal surface of the talus 4. Medial and lateral malleoli fractures Tiny corner fracture at the anterior aspect of the calcaneus Electronically Signed: Jose Manuel Shea MD at 14:57 EST Reading Location ID and State: [facility] , Service support , Physical Exam Const alert, no apparent distress and well nourished Constitutional Narrative: Obese, older, white female, sitting up in bed, nursing at bedside oriented to self, place, month, and vice president network development, tells me its 1923, was able to tell me the nature of her admission and what happened during her hospital course thus far HEENT head/scalp atraumatic and moist oral mucous membranes HEENT Narrative: Mallampati 3, no thrush Head and Scalp: normocephalic Eyes PERRL and EOMs intact bilaterally; Negative for conjunctivae normal Eyes Narrative: Mild conjunctival pallor, no scleral icterus Neck Neck Narrative: Neck is short and thick Resp normal respiratory effort, no retractions, no use of accessory muscles and clear to auscultation bilaterally Auscultation: Negative for rales, rhonchi or wheezes Cardio regular rate, regular rhythm, S1 normal heart sound, S2 normal heart sound, no murmurs, no rub, no gallops and no clicks GI normal to inspection, nondistended, normoactive bowel sounds, soft to palpation, non-tender and non-distended Extremity no clubbing, cyanosis or edema Neuro Neuro Narrative: Confusion as noted above, unable to move right lower extremity secondary to spinal anesthesia and block, myoclonic jerking noted on exam, decreased sensation right lower extremity due to block and slight decrease sensation left lower extremity, patient does have some difficulty with [id number] due to jerking motions Speech: speech normal Psych Psych Narrative: Pleasant, appropriately interactive Assessment & Plan Assessment/Plan (1) Ankle fracture, right: (2) Fall: (3) Closed dislocation of right ankle: (4) Fracture of body of right talus: (5) Acute hypercapnic respiratory failure: (6) Myoclonic jerking: PLAN: Plan Acute hypercapnic respiratory failure -Possibly related to spinal anesthesia as well as narcotics given prior to surgery -Discontinue morphine -Discontinue oxycodone 10 mg -Continue Oxy IR as needed 5 mg every 6 hours -Scheduled Tylenol -Patient did have sciatic blocks if she should have any significant pain over the next 24 hours -ABG with pH of 7.25 and a PCO2 of 52.5 -Oxygenating well -Start BiPAP -Repeat ABG in 2.5 hours and allow for spinal anesthesia to wear off -Continue BiPAP through the night and reevaluate in the morning Toxic/metabolic encephalopathy -Secondary to the above -I expect this should improve once hypercapnia is resolved Myoclonic jerking -Likely related to metabolic disturbance with hypercapnia -BiPAP as above -If acidosis resolves and jerking does not improve may need further investigation Acute fracture dislocation of the right ankle with talar fracture -OR today for surgical reduction via closed reduction with external fixation and internal fixation -High concern for development of avascular necrosis if delayed surgical planning is the reason for acute surgery plans -Pain management per primary service -Commend bowel regimen -Weightbearing status per primary service--> anticipate nonweightbearing postoperatively -PT/OT consultation Elevated serum creatinine -Baseline serum creatinine is unknown -1.71 on presentation -1.64 today -Suspect baseline underlying renal dysfunction likely related to diabetic nephropathy -Continue IV fluids until p.o. status improves postoperatively -Discontinue meloxicam and avoid NSAIDs -Renally dose medications as needed -Repeat BMP in a.m. Anemia -No baseline data on the patient -Hemoglobin on admission was 10.7 and 10.9 today -Normocytic -Reticulocyte count is slightly elevated at 1.61 -Iron level is normal at 59 with an iron saturation of 30.9% -TIBC is low at 191 -Anemia seems to be consistent with anemia of chronic disease DM-2 -Continue home Basaglar 20 units twice daily -Continue home Januvia -Sliding scale -Accu-Cheks Diabetic peripheral neuropathy -Continue on gabapentin -Hold home meloxicam Hyperlipidemia -Continue statin Depression -Continue Paxil -Continue home trazodone DVT prophylaxis -Chemoprophylaxis per primary team -Recommend SCDs as able Charges/Coding Visit Charges Inpatient E&M: 47142 Subs Hosp L3
[2022-05-26] MEDS: Lactated Ringers 1,000 ML 75 ML IV ×2 (09:35→17:52)
--- NOTE | 2022-05-26 10:29 | PCM.OPRPT ---
Problems Associated Problem List Diagnoses (1) Closed dislocation of right ankle: (2) Fracture of body of right talus: Report of Operation Date of Procedure: 05/26/22 Pre-Operative Diagnosis: 1) Closed displaced talar fracture of right ankle, idalia 4 Post-Operative Diagnosis: Same Surgery/Procedure Performed:: Closed reduction external fixation right displaced talar fracture Description of Surgical Findings:: Patient fell downstairs 1 day prior as she tripped over her dogs that she was watching for her [id number]. Patient is from out of town. Patient suffered a dislocated ankle and subtalar joint secondary to a talar body fracture which was closed reduced in the emergency room setting. An attempt to better align and stabilize the soft tissue joints and talar fracture closed reduction and external fixation was pursued. Attempted percutaneous fixation was attempted but adequate reduction of the rotated talar body fragment could not be performed. Surgeon: Oli Peters bilingual inside sales representative: None (everton jane) Type of Anesthesia: Spinal/Supplemental Specimen's removed: none Drains: none Estimated Blood Loss (mL): <10 Description of Procedure: Patient was brought back the operating placed comfortably in supine position on the operating room table. Patient received spinal anesthesia with supplemental. Well-padded right thigh tourniquet was applied. This was not inflated throughout the case. Upon removal of the splint there is noted to be some skin breakdown to the anterior lateral ankle. With diffuse edema to the ankle region. Is likely secondary to the nature of the traumatic injury. Which is why we are proceeding with closed reduction with external fixation to stabilize the soft tissue joints and osseous underlying structure until definitive open reduction internal fixation can be performed. Today percutaneous reduction was attempted but adequate reduction of the malrotated posterior talar body fracture cannot be performed. Right lower extremity was scrubbed prepped draped using typical aseptic manner. Using 2 partially-threaded 5 mm pins placed bicortically perpendicular to the tibial along the mid tibial shaft was performed once cleared by anesthesia. A transfixion pin was placed from lateral to medial within the central aspect of the calcaneus. Using a pin to bar construct the calcaneus was distracted from the tibia with the foot in a rectus position and stabilized. Additional partially-threaded 5 mm pin was placed into the first metatarsal base to allow for adequate dorsiflexion of the foot was stabilized using a pin to bar technique. Once this was performed there is noted to be adequate reduction of the ankle and subtalar joint however there was still a mild rotated posterior talar body fragment which was significantly comminuted. Through multiple attempts with jostling through percutaneous K wires percutaneous application of the [id number] bone reduction clamps reduction of this fragment was attempted. This could not be performed as the patient will likely need definitive open reduction with internal fixation of that fracture fragment. This cannot be performed at to the leg due to the amount of soft tissue swelling and concern for soft tissue envelope. This reduction will be maintained with the external fixator and closed reduced position. Patient recognizes she is at great risk for talar avascular necrosis which may require additional reconstructive procedures down the line or long-term bracing. Final x-rays of the ankle and foot were taken adequate alignment was noted with the foot relative to the leg in the frontal, sagittal, and coronal planes. Sites were cleaned with saline wet and then dressed with Adaptic 4 x 4's ABD pads Kerlix and Eriberto bandage. If patient stays in the area we will plan for definitive reconstruction in 2 weeks as a soft tissue envelope calms down. If patient returns to [place] we will refer her to an outside provider that can provide the same care. We will plan to keep the patient overnight and monitor some disorientation that she seems to be having. We will have the hospitalist come and reevaluate her. Patient tolerated procedure and anesthesia well apparent satisfactory condition was transported to PACU prior to being transferred back to the floor Grafts/Implants Used: Styker fernandez 3 pin to bar external fixator
[2022-05-26 11:16] LABS: Bedside Glucose 169 mg/dL (74-106)
[2022-05-26 11:16] LABS: Bedside Glucose 181 mg/dL (74-106)
--- NOTE | 2022-05-26 13:30 | NURSING ---
Patient requesting water. Handed pt water and she was unable to hold it. Jerking movements to arms and left leg. Patient mumbling and unable to finish a sentense. Dr. Silva made aware will come and evaluate. Pt bilat hand grasps strong. Tongue midline. Smile symmetrical. Upon rolling patient in bed this RN noticed blood coming from epidural site. bottom loader was informed and said she will be up to evaluate.
--- NOTE | 2022-05-26 14:00 | NURSING ---
Blood glucose checked wnl. BP wnl. Pt oriented x2. Dr. Silva at bedside. Lab in to draw ABGs.
[2022-05-26 14:05] LABS: Allen Test Positive; Base Excess -4 mmol/L (-2 to +2); Bicarbonate 23.3 mmol/L (22-26); Blood Gas Specimen Type ART; O2 Delivery Device Cannula; PO2 76 mmHG (75-100); SITE R Radial; SO2 92 % (95-99); Total Carbon Dioxide 25 mmol/L; pCO2 52.5 mmHg (35-45); pH 7.26 (7.35-7.45)
[2022-05-26 14:23] LABS: Bacteria 0 SEEN /hpf (None Seen); Mucous, Urine 0 SEEN /hpf (<or=2+); Red Blood Cells-Urine 0 SEEN /hpf (0-5)
[2022-05-26 14:30] LABS: Color, Urine Yellow (Yellow); Glucose, Dipstick 1000 mg/dl (Normal); Ketone-Dipstick Negative (Negative); Leukocyte Esterase-Dipstick 25 /ul (Negative); Nitrite-Dipstick Negative (Negative); Occult Blood-Urine Negative /ul (Negative); Protein-Dipstick Negative (Negative); Urine Bilirubin Dipstick Negative (Negative); Urine Clarity Clear (Clear); Urine Urobilinogen Normal (Normal)
--- NOTE | 2022-05-26 15:20 | CPS ---
this RT was called to bedside to start bipap. at 1500 while RT was setting up, the LAP CUTTER TRUER OPERATOR came in the room to feed the pt and was asked to wait until finished. Started bipap at 1518.
--- NOTE | 2022-05-26 16:07 | NURSING ---
Son thats on pts contact on chart has been updated. He is calling step dad.
[2022-05-26] MEDS: Acetaminophen 500 MG Tablet 1000 MG PO ×2 (16:13→21:50)
[2022-05-26] MEDS: Insulin Lispro 100 UNIT/ML INSULN.PEN SC ×2 (16:17→21:50)
[2022-05-26 16:45] LABS: Bedside Glucose 177 mg/dL (74-106)
[2022-05-26 16:45] LABS: Bedside Glucose 168 mg/dL (74-106)
[2022-05-26 17:06] LABS: Allen Test Positive; Base Excess -1 mmol/L (-2 to +2); Bicarbonate 25.4 mmol/L (22-26); Blood Gas Specimen Type ART; FI02 35; O2 Delivery Device BiPAP; PO2 85 mmHG (75-100); RR 12; SITE R Radial; SO2 95 % (95-99); Total Carbon Dioxide 27 mmol/L; pCO2 50.4 mmHg (35-45); pH 7.31 (7.35-7.45)
[2022-05-26 21:45] LABS: Squamous Epithelial Cells - UA 0-5 SEEN /hpf (5-10); White Blood Cells 0-5 SEEN /hpf (0-5)
[2022-05-26] MEDS: cycloBENZAPRine HCl 10 MG Tablet PO (21:50)
[2022-05-26] MEDS: Gabapentin 600 MG Tablet PO (21:50)
[2022-05-26] MEDS: Atorvastatin Calcium 40 MG Tablet PO (21:50)
[2022-05-26] MEDS: traZODone 50 MG Tablet PO (21:50)
[2022-05-26] MEDS: Insulin Glargine-YFGN 100 UNIT/ML Pen 20 UNIT SC (21:51)
[2022-05-26 22:15] LABS: Bedside Glucose 166 mg/dL (74-106)
[2022-05-27] VITALS (9 sets, daily range): BP systolic 111–156; BP diastolic 44–102; PULSE 67–99; RESP 12–18; TEMP 36.5–37.3; O2SAT 92–99; BMI 31.3
[2022-05-27] MEDS: Acetaminophen 500 MG Tablet 1000 MG PO ×3 (06:37→20:14)
[2022-05-27] MEDS: Lactated Ringers 1,000 ML 75 ML IV (06:37)
[2022-05-27 06:38] LABS: Absolute Lymphocyte Count 1.77 X10^3/uL (0.83-4.51); Absolute Neutrophil Count 5.7 X10^3/uL (2.0-7.7); Basophil# 0.02 X10^3/uL; Basophil% 0.2 % (0-1); Eosinophil# 0.24 X10^3/uL; Eosinophils% 2.8 % (0-5); Hematocrit 31.6 % (37-47); Hemoglobin 9.7 g/dL (12.0-15.0); Lymphocyte # 1.77 X10^3/ul (0.83-4.51); Lymphocyte % 20.5 % (19-41); Mean Corp Hgb Conc 30.7 g/dL (32-36); Mean Corpuscular Hgb 30.3 pg (27.0-32.0); Mean Corpuscular Volume 98.8 fL (81-99); Mean Platelet Vol. 9.4 fl (6.2-12.0); Monocyte% 10.4 % (0-10); NRBC Flagged by Analyzer 0 % (0-5); Neutrophil # 5.67 X10^3/uL (2.7-7.7); Neutrophil % 65.8 % (47-70); Platelet Count 215 K/mm3 (150-450); RBC Distribution Width CV 12.6 % (11.6-14.6); RBC Distribution Width SD 45.4 fl (35.1-43.9); White Blood Count 8.6 K/mm3 (4.4-11.0)
[2022-05-27] MEDS: Insulin Lispro 100 UNIT/ML INSULN.PEN SC ×3 (06:43→21:50)
[2022-05-27] MEDS: oxyCODONE 5 MG Tablet PO ×3 (06:51→23:58)
--- NOTE | 2022-05-27 06:52 | NURSING ---
Pt wore BIPAP until 0645 on 05/27/22
[2022-05-27 07:01] LABS: ALB/GLOB Ratio 0.7 RATIO (0.9-2.4); AST(SGOT) 21 U/L (15-37); Alanine Aminotransfer ALT/SGPT 20 U/L (13-56); Albumin, Serum 2.6 g/dL (3.2-5.0); Alkaline Phosphatase 76 U/L (45-117); Anion Gap 5 (5-15); BUN 17 mg/dL (7-18); BUN/Creat Ratio 10.2 RATIO (10-20); Calcium,Total 8.6 mg/dL (8.5-10.1); Chloride 108 mmol/L (98-107); Creatinine, Serum 1.66 mg/dL (0.55-1.02); EST Glomerular Filtration Rate 32 mL/min (>60); Est Glom Filt Rate - Afr Amer 39 mL/min (>60); Estimated Creatinine Clearance 27.97 ml/min; Globulin 3.5 g/dL (2.2-4.2); Glucose 233 mg/dL (74-106); Magnesium 1.8 mg/dL (1.6-2.6); Phosphorus 3.2 mg/dL (2.5-4.9); Potassium 4.3 mmol/L (3.5-5.1); Protein, Total 6.1 g/dL (6.4-8.2); Sodium Level 140 mmol/L (136-145)
[2022-05-27 07:05] LABS: Bedside Glucose 216 mg/dL (74-106)
[2022-05-27 07:25] LABS: Allen Test Positive; Base Excess -1 mmol/L (-2 to +2); Bicarbonate 25.5 mmol/L (22-26); Blood Gas Specimen Type ART; O2 Delivery Device Cannula; PO2 71 mmHG (75-100); SITE L Radial; SO2 92 % (95-99); Total Carbon Dioxide 27 mmol/L; pCO2 49.5 mmHg (35-45); pH 7.32 (7.35-7.45)
[2022-05-27] MEDS: cycloBENZAPRine HCl 10 MG Tablet PO ×2 (10:13→20:14)
[2022-05-27] MEDS: LINAGLIPTIN 5 MG TABLET PO (10:14)
[2022-05-27] MEDS: Paroxetine 20 MG Tablet 30 MG PO (10:14)
[2022-05-27] MEDS: Gabapentin 600 MG Tablet PO ×2 (10:23→20:14)
--- NOTE | 2022-05-27 10:25 | CASEMGMT ---
Addendum entered by Liv Teran 05/27/22 11:13: Pt reports her is her DPOA. Original Note: DALE CARTER Assessment: Face to Face with pt for initial transition planning/care coordination assessment. DALE CARTER introduced self and role at [facility], pt voices understanding and consents to assessment. Pt is A/O x3 and answers all questions appropriately at this time. Pt sitting up in bed with oxygen on in no distress. Care providers, pharmacy, and demographics verified/updated. Admitting Dx: R closed displaced talar body fracture PCP:Yohan at [facility] Specialists:Pt sees pain mgmt in [place]. Preferred Pharmacy: [facility] Retail while hospitalized [facility]: yes LNOK: Ulices Deshpande, son Living Arrangements: Pt lives with in a single story home with 5 steps to enter with a rail. Pt reports prior to this incident, she was I in ADL's. Transportation: Pt drove prior. Pt states her can drive as well. DME/HHC/SNF: Pt denies having any DME in the home, previous HHC or SNF stays. Pt states she drove here to [place] to watch her dtrs dogs while she was on vacation. Pt states she does not want to remain in [place] as her son works and her dtr is in [place]. She would like to return to [place] but states her has back problems and he cannot care for her in the condition she is in. Pt would like to go to a SNF in [place]. She states her mother was in [facility] in [place] and she would like to try there. Discussed transportation home, pt states it had been planned for her and son to meet senior care and they were going to have her car towed, but now either her son will need to take the day off to drive the whole way or her will have to drive the whole way to get her. Asked pt if she would like DALE CARTER to call her son or her to discuss this plan, she states she wants to know if there is availability in the half-way first and she will call her family to discuss. Made her aware this DALE CARTER will notify the SW of her requests and she will be in to talk to her. Pt states no further concerns/needs. CM to follow. Advised pt to ask CM if any further question/concerns/needs arise, voices understanding. Pt Goal: SNF in [place] Plan: TBD Updated SW of pt request. Noted in [employer] options for pt home zip code. RN CM back into pt room, obtained 's name and phone number. Pt states the [facility] is a [place] and SNF.
[2022-05-27] MEDS: Insulin Glargine-YFGN 100 UNIT/ML Pen 20 UNIT SC ×2 (10:51→21:51)
--- NOTE | 2022-05-27 10:53 | CASEMGMT ---
Social Work Per RN RAUL, Liv, pt informed that is HCPOA but pt does not have copy of this document in [place] and cannot get one. Pt is from [place] and plans to return there upon discharge. Helena Lee
--- NOTE | 2022-05-27 11:59 | CASEMGMT ---
Addendum entered by Helena Lee 05/27/22 15:33: [facility] called back. No beds available. Unable to accept pt. Addendum entered by Helena Lee 05/27/22 14:56: SW called both facilities to check on referral. Neither answered. SW left message with contact number for both facilities. Addendum entered by Helena Lee 05/27/22 13:20: Pt spoke to and now requesting referral be sent to [facility] in [place] as well. SW sent referral to this facility via [employer]. Original Note: Social Work? SW in to meet with pt following update from RN RAUL that pt requesting placement at nursing facility in her home state of [place]. SW introduced self and role at the hospital. Pt agreeable to discussing discharge planning. A list of SNF providers including quality and resource use data consistent with the patient?s preferred geographic region, medical needs, and insurance network were provided from [facility]. Pt reviewed list shared preference of [facility] in [facility]. SW inquired about transportation as this is far from [place]. Pt stated son would be driving pt. SW sent referral to [facility] via [employer] and provided contact number. Will await determination. PLAN: SNF? [facility]?
--- NOTE | 2022-05-27 15:42 | PN.HOSP_ITS ---
Reason for Visit Reason for Visit: Right ankle fracture Subjective Subjective No significant issues overnight. Mentation is much improved today. Per charge nurse, the son reported that they are currently having her worked up for Alzheimer's disease and dementia so she is having some baseline confusion. I did recommend we use narcotics sparingly with lower doses for her. Objective Data Objective Data Vital Signs: Vital Signs Temp Pulse Resp BP Pulse Ox O2 Del Method O2 Flow Rate 98.1 F 83 18 156/68 H 92 Room Air 2 05/27/22 13:58 05/27/22 13:58 05/27/22 13:58 05/27/22 13:58 05/27/22 13:58 05/27/22 13:58 05/27/22 08:00 FiO2 95 05/27/22 06:47 Oxygen Flow Rate (L/min) [6] 3 Oxygen Flow Rate (L/min) [5] 6 Oxygen Flow Rate (L/min) [4] 6 Oxygen Flow Rate (L/min) [3] 6 Oxygen Flow Rate (L/min) [2] 6 Oxygen Flow Rate (L/min) [1 ( 6 Initial Baseline)] Oxygen Flow Rate (L/min) 2 Oxygen Delivery Method [6] Nasal Cannula Oxygen Delivery Method [5] Nasal Cannula Oxygen Delivery Method [4] Nasal Cannula Oxygen Delivery Method [3] Nasal Cannula Oxygen Delivery Method [2] Nasal Cannula Oxygen Delivery Method [1 ( Nasal Cannula Initial Baseline)] Oxygen Delivery Method Room Air Weight: 85.275 kg Body Mass Index (BMI) 31.2 Intake & Output: Intake and Output for Last 24 Hours 05/25/22 05/26/22 05/27/22 23:59 23:59 23:59 Intake Total 500 / 500 4100 / 4100 1241.25 / 1241.25 Output Total 1800 / 1800 425 / 425 Balance 500 / 500 2300 / 2300 816.25 / 816.25 Lab / Micro Data Result Diagrams: 05/27/22 06:30 05/27/22 06:30 Labs: Laboratory Results - last 24 hr 05/26/22 13:29: POC Glucose 168 H 05/26/22 14:20: Urine RBC 0 SEEN, Urine WBC 0-5 SEEN, Ur Squamous Epith Cells 0- 5 SEEN, Urine Bacteria 0 SEEN, Urine Mucus 0 SEEN 05/26/22 16:16: POC Glucose 177 H 05/26/22 21:44: POC Glucose 166 H 05/27/22 06:30: WBC 8.6, RBC 3.20 L, Hgb 9.7 L, Hct 31.6 L, MCV 98.8, MCH 30.3, MCHC 30.7 L, RDW Std Deviation 45.4 H, RDW Coeff of Barrie 12.6, Plt Count 215, MPV 9.4, Immature Gran % (Auto) 0.300, Neut % (Auto) 65.8, Lymph % (Auto) 20.5, [place] % (Auto) 10.4 H, Eos % (Auto) 2.8, Baso % (Auto) 0.2, Absolute Neuts (auto) 5.7, Absolute Lymphs (auto) 1.77, Nucleated RBC % 0 05/27/22 06:30: Sodium 140, Potassium 4.3, Chloride 108 H, Carbon Dioxide 27.0, Anion Gap 5, BUN 17, Creatinine 1.66 H, Estim Creat Clear Calc 27.97, Est GFR (MDRD) Af Amer 39 L, Est GFR (MDRD) Non-Af 32 L, BUN/Creatinine Ratio 10.2, G lucose 233 H, Calcium 8.6, Phosphorus 3.2, Magnesium 1.8, Total Bilirubin 0.60, AST 21, ALT 20, Alkaline Phosphatase 76, Total Protein 6.1 L, Albumin 2.6 L, Globulin 3.5, Albumin/Globulin Ratio 0.7 L 05/27/22 06:42: POC Glucose 216 H ABG Data ABG results: ABG 05/26/22 05/27/22 17:02 07:20 Specimen Type ART ART Sample Site R Radial L Radial pH 7.31 L 7.32 L Bicarbonate Actual 25.4 25.5 Total CO2 27 27 Base Excess -1 -1 O2 Saturation 95 92 L O2 % 35 ABG pCO2 50.4 H 49.5 H ABG pO2 85 71 L Jose Test Positive Positive Respiration Rate 12 O2 Delivery Device BiPAP Cannula Liter Flow 2.0 Radiography Diagnostic Testing: Radiology Impression Chest X-Ray 05/25/22 17:50 IMPRESSION: No radiographic evidence of acute cardiopulmonary disease. Electronically Signed: Hernandez Poole DO at 17:22 EST Reading Location ID and State: [facility] / [place] Tel [phone], Service support , Physical Exam Const alert, oriented x3, no apparent distress and well nourished Constitutional Narrative: Obese, older, white female, sitting up in bed, nursing at bedside, patient a ppears comfortable, mild confusion but orientation is much improved HEENT head/scalp atraumatic and moist oral mucous membranes Head and Scalp: normocephalic Resp normal respiratory effort, no retractions, no use of accessory muscles and clear to auscultation bilaterally Auscultation: Negative for rales, rhonchi or wheezes Cardio regular rate, regular rhythm, S1 normal heart sound, S2 normal heart sound, no murmurs, no rub, no gallops and no clicks GI normal to inspection, nondistended, normoactive bowel sounds, soft to palpation, non-tender and non-distended Extremity no clubbing, cyanosis or edema Neuro oriented x3, CN's II-XII intact bilaterally and no focal motor deficits Neuro Narrative: Decreased movement right lower extremity due to block, sensation is improving in right foot and patient is now able to wiggle toes on the right Speech: speech normal Psych affect normal Psych Narrative: Pleasant, appropriately interactive Assessment & Plan Assessment/Plan (1) Ankle fracture, right: (2) Fall: (3) Closed dislocation of right ankle: (4) Fracture of body of right talus: (5) Acute hypercapnic respiratory failure: (6) Myoclonic jerking: PLAN: Plan Acute hypercapnic respiratory failure -Suspect related to spinal anesthesia as well as narcotics given prior to surgery -Avoid heavily sedating medication -Resolved Toxic/metabolic encephalopathy -Secondary to the above -Resolved Myoclonic jerking -Likely related to metabolic disturbance with hypercapnia -Resolved Acute fracture dislocation of the right ankle with talar fracture -OR today for surgical reduction via closed reduction with external fixation and internal fixation -High concern for development of avascular necrosis if delayed surgical planning is the reason for acute surgery plans -Continue oxycodone 5 mg but increase to every 4 from every 6 -Continue scheduled Tylenol -Avoid NSAIDs with renal dysfunction at baseline -Recommend bowel regimen -Weightbearing status per primary service--> anticipate nonweightbearing postoperatively -PT/OT consultation -Podiatry would like patient discharged with Lovenox for DVT prophylaxis at the time of discharge CKD stage IIIb -Baseline serum creatinine is unknown however with fluids her serum creatinine i s stabilized between 1.6 and 1.7 -Suspect baseline underlying renal dysfunction likely related to diabetic nephropathy -Discontinue IV fluids -Discontinue meloxicam and avoid NSAIDs -I would discontinue meloxicam at discharge -Renally dose medications as needed -Repeat BMP in a.m. Anemia -No baseline data on the patient -Hemoglobin on admission was 10.7 and 9.7 after surgery and hydration -Normocytic -Reticulocyte count is slightly elevated at 1.61 -Iron level is normal at 59 with an iron saturation of 30.9% -TIBC is low at 191 -Anemia seems to be consistent with anemia of chronic disease DM-2 -Continue home Basaglar 20 units twice daily -Continue home Januvia -Sliding scale -Accu-Cheks -Check hemoglobin A1c is fasting blood sugar this morning is 233 Diabetic peripheral neuropathy -Continue on gabapentin -Hold home meloxicam Hyperlipidemia -Continue statin Depression -Continue Paxil -Continue home trazodone DVT prophylaxis -Chemoprophylaxis per primary team -Recommend SCDs as able Charges/Coding Visit Charges Inpatient E&M: 18765 Subs Hosp L2
[2022-05-27 16:15] LABS: Bedside Glucose 193 mg/dL (74-106)
[2022-05-27 16:39] LABS: Hemoglobin A1c 9.7 % (3.8-5.6)
[2022-05-27 17:06] LABS: Bedside Glucose 108 mg/dL (74-106)
[2022-05-27] MEDS: traZODone 50 MG Tablet PO (20:14)
[2022-05-27] MEDS: Atorvastatin Calcium 40 MG Tablet PO (20:14)
[2022-05-27 22:30] LABS: Bedside Glucose 166 mg/dL (74-106)
[2022-05-28] VITALS (14 sets, daily range): BP systolic 120–160; BP diastolic 43–86; PULSE 75–94; RESP 18–20; TEMP 37.1–37.5; O2SAT 91–97
[2022-05-28] MEDS: Acetaminophen 500 MG Tablet 1000 MG PO ×3 (05:05→21:32)
[2022-05-28 06:44] LABS: Absolute Lymphocyte Count 1.58 X10^3/uL (0.83-4.51); Absolute Neutrophil Count 7.3 X10^3/uL (2.0-7.7); Basophil# 0.03 X10^3/uL; Basophil% 0.3 % (0-1); Eosinophil# 0.35 X10^3/uL; Eosinophils% 3.4 % (0-5); Hematocrit 29.8 % (37-47); Hemoglobin 9.6 g/dL (12.0-15.0); Lymphocyte # 1.58 X10^3/ul (0.83-4.51); Lymphocyte % 15.5 % (19-41); Mean Corp Hgb Conc 32.2 g/dL (32-36); Mean Corpuscular Hgb 30.9 pg (27.0-32.0); Mean Corpuscular Volume 95.8 fL (81-99); Mean Platelet Vol. 9.8 fl (6.2-12.0); Monocyte# 0.88 X10^3/uL; Monocyte% 8.6 % (0-10); NRBC Flagged by Analyzer 0 % (0-5); Neutrophil # 7.34 X10^3/uL (2.7-7.7); Neutrophil % 71.8 % (47-70); Platelet Count 214 K/mm3 (150-450); RBC Distribution Width CV 12.5 % (11.6-14.6); RBC Distribution Width SD 43.6 fl (35.1-43.9); Red Blood Count 3.11 M/mm3 (4.2-5.4); White Blood Count 10.2 K/mm3 (4.4-11.0)
[2022-05-28 06:56] LABS: Bedside Glucose 129 mg/dL (74-106)
[2022-05-28 07:25] LABS: Anion Gap 7 (5-15); BUN 16 mg/dL (7-18); BUN/Creat Ratio 11.3 RATIO (10-20); Calcium,Total 8.8 mg/dL (8.5-10.1); Chloride 107 mmol/L (98-107); Creatinine, Serum 1.41 mg/dL (0.55-1.02); EST Glomerular Filtration Rate 39 mL/min (>60); Est Glom Filt Rate - Afr Amer 47 mL/min (>60); Estimated Creatinine Clearance 32.93 ml/min; Glucose 133 mg/dL (74-106); Sodium Level 141 mmol/L (136-145)
--- NOTE | 2022-05-28 07:36 | PN_ITS ---
Subjective Subjective Patient has moderate pain today. Seen bedside, mentation improved. Denies constitutional symptoms, denies chest pain, calf pain, shortness of breath. No new complaints. Objective Data Objective Data Vital Signs: Vital Signs Temp Pulse Resp BP Pulse Ox O2 Del Method O2 Flow Rate 99.0 F 75 18 146/53 H 97 Nasal Cannula 2 05/28/22 07:26 05/28/22 07:26 05/28/22 07:26 05/28/22 07:26 05/28/22 07:26 05/28/22 07:26 05/28/22 07:26 FiO2 95 05/27/22 06:47 Oxygen Flow Rate (L/min) [6] 3 Oxygen Flow Rate (L/min) [5] 6 Oxygen Flow Rate (L/min) [4] 6 Oxygen Flow Rate (L/min) [3] 6 Oxygen Flow Rate (L/min) [2] 6 Oxygen Flow Rate (L/min) [1 ( 6 Initial Baseline)] Oxygen Flow Rate (L/min) 2 Oxygen Delivery Method [6] Nasal Cannula Oxygen Delivery Method [5] Nasal Cannula Oxygen Delivery Method [4] Nasal Cannula Oxygen Delivery Method [3] Nasal Cannula Oxygen Delivery Method [2] Nasal Cannula Oxygen Delivery Method [1 ( Nasal Cannula Initial Baseline)] Oxygen Delivery Method Nasal Cannula Weight: 85.275 kg Body Mass Index (BMI) 31.2 Intake & Output: Intake and Output for Last 24 Hours 05/26/22 05/27/22 05/28/22 23:59 23:59 23:59 Intake Total 4100 / 4100 1241.25 / 1241.25 Output Total 1800 / 1800 925 / 925 1100 / 1100 Balance 2300 / 2300 316.25 / 316.25 -1100 / -1100 Lab / Micro Data Result Diagrams: 05/28/22 06:30 05/28/22 06:30 Labs: Laboratory Results - last 24 hr 05/27/22 06:30: Hemoglobin A1c 9.7 H 05/27/22 10:50: POC Glucose 193 H 05/27/22 16:45: POC Glucose 108 H 05/27/22 21:49: POC Glucose 166 H 05/28/22 06:25: POC Glucose 129 H 05/28/22 06:30: WBC 10.2, RBC 3.11 L, Hgb 9.6 L, Hct 29.8 L, MCV 95.8, MCH 30.9, MCHC 32.2, RDW Std Deviation 43.6, RDW Coeff of Barrei 12.5, Plt Count 214, MPV 9.8, Immature Gran % (Auto) 0.400, Neut % (Auto) 71.8 H, Lymph % (Auto) 15.5 L, [place] % (Auto) 8.6, Eos % (Auto) 3.4, Baso % (Auto) 0.3, Absolute Neuts (auto) 7.3, Absolute Lymphs (auto) 1.58, Nucleated RBC % 0 05/28/22 06:30: Sodium 141, Potassium 4.0, Chloride 107, Carbon Dioxide 27.0, Anion Gap 7, BUN 16, Creatinine 1.41 H, Estim Creat Clear Calc 32.93, Est GFR (MDRD) Af Amer 47 L, Est GFR (MDRD) Non-Af 39 L, BUN/Creatinine Ratio 11.3, Glucose 133 H, Calcium 8.8 Physical Exam Narrative Neurovascular status unchanged from previous evaluation. New fracture blister to anterior ankle superficial in nature. Stable lateral ankle hemorrhagic fracture blister. Pin sites appear clean and devoid of infection. No sign DVT. Assessment & Plan Assessment/Plan (1) Fracture of body of right talus: PLAN: Exam performed Patient 2 days postop. Awaiting SNF placement. Patient is traveling back to [place] due to this we will discharge on enoxaparin as well as p.o. antibiotics for prophylaxis. Patient unfortunately will follow up with foot and ankle surgeon in [place] Due to severity of traumatic injury initial ORIF could not be performed due to swelling concern for breakdown soft tissue envelope, poorly controlled diabetes with hemoglobin A1c greater than 10, severe comminution to the posterior talar dome. External fixation was applied to stabilize the fracture dislocation site evaluate the soft tissue envelope and allow for edema resolution. Definitive ORIF may not be possible due to the level fragmentation. Patient may be looking at prolonged immobilization with possible custom bracing versus reconstructive surgery at a future date. Due to patient traveling back to [place] this will likely be with another foot and ankle surgeon. We will consider discharge if pain is controlled, patient is ready and patient gets placed in SNF.
--- NOTE | 2022-05-28 07:59 | WOUNDNOTE ---
In to assess the right lower leg with Dr Peters. removed KWABENA wraps and dressings. the external fixator in place. there was a moderate amount of serosanguineous drainage noted mostly from the most distal pin sites. there is some bruising noted. placed xeroform gauze around the pin sites and covered with dry dressings. placed well padded dressing to the heel and dorsal foot. wrapped with kerlix. reapplied the KWABENA wraps. pt tolerated well. awaiting to see if family has decided to take patient back to [place] or stay in [place] for surgery later. Pt states the plan is to return to [place].
[2022-05-28] MEDS: Furosemide 40 MG/4 ML Vial IV (08:52)
[2022-05-28] MEDS: 0.9% Saline Lock 10 ML Syringe IV (08:52)
--- NOTE | 2022-05-28 08:56 | CASEMGMT ---
Addendum entered by Helena Lee 05/28/22 13:41: Received another VM from Pt . ELIZABETH called back and informed that Jose at [facility] has not called back to inform if can accept pt or not. Wilmar voiced frustration. SW validated feelings. SW informed that Wilmar would be called immediately when news was received on acceptance. Wilmar stated had spoke to [facility] and [facility] and was told pt was accepted. SW reiterated that SW has not heard this information. Wilmar stated would continue calling. SW offered education that most SNFs go through a review process that may take some time. Wilmar adamant on calling SNF again. SW will await news from SNF on acceptance. Addendum entered by Helena Lee 05/28/22 10:25: Pt called [facility] [place] and was informed they would not accept pt. then called [facility] and was told SW should sent referral via fax. SW sent referral to [facility] by fax number provided by pt . ELIZABETH spoke to Jose, admission director at [facility]. Explained that a voicemail was left for Liliane, the over coordinator for the [facility], on guidance to complete the PASRR. Jose voiced understanding. Will await referral and call this SW back when a determination is made. Addendum entered by Helena Lee 05/28/22 09:42: SW spoke to MD Peters to discuss option of pt d/c and being taken to [facility] [place]. MD Peters is alright with this plan as long as pt images can be sent with pt to [place] ER. Bryanna, charge nurse, is able to scan images to CD and send with pt. Addendum entered by Helena Lee 05/28/22 09:22: ELIZABETH called [facility] and spoke to Delilah, email marketing coordinator. Delilah informed the referral had not yet been received but that Delilah would call this SW back once it has been reviewed to inform of determination. Upon inquiring about a paper PASRR SW was told [place] is not allowed to accept paper forms. SW will continue to follow up on this process. ELIZABETH also called [place] PASRR helpdesk to ask about steps to complete this process. ELIZABETH was given contact information for Liliane Prince, overcoordinator for [place], [place]. ([phone]- [email or web address]) SW called the number provided and left a message requesting a call back for guidance on completing the PASRR for this patient. Pt's son also called for an update. SW explained the situation to son and informed there is no guarantee that pt will be able to d/c today as there is no accepting facility. Son stated was going to call step dad to collaborate as son will not be able to transport pt any other day but today. Son to call SW back to discuss plan further after discussing with step father. Original Note: Social Work SW called pt , Wilmar, back to offer update on discharge plan. Wilmar informed had rented trailer for [employer] to drive pt and pt car back to [place] today. SW informed that the two SNFs picked by pt yesterday have not accepted pt as of yet. SW informed [facility] cannot accept as they have no beds and [facility] have yet to review the referral and have not responded back to SW phone calls. SW also also offered information regarding the PASRR that is required and that since pt will be going to [place] SNF this may delay the process some. Wilmar voiced understanding, however also spoke about frustration regarding money paid to rent trailer that may not get to be used this day. SW offered validation of feelings for this. Wilmar discussed if pt d/c here and is transported to [place] by son then admitting to [place] ER and placed in SNF from home state. SW agreed this is an option if pt doc feels it is safe. Wilmar to call [facility] and reach back out to if able to reach someone. Wilmar called back and provided numbers for fax and admissions contact. SW sent referral to fax number provided. Will call admissions to confirm referral has been received. CALVIN Rubin
[2022-05-28] MEDS: oxyCODONE 5 MG Tablet PO (10:28)
[2022-05-28] MEDS: Gabapentin 600 MG Tablet PO ×2 (10:28→21:36)
[2022-05-28] MEDS: cycloBENZAPRine HCl 10 MG Tablet PO ×2 (10:29→21:31)
[2022-05-28] MEDS: LINAGLIPTIN 5 MG TABLET PO (10:29)
[2022-05-28] MEDS: Paroxetine 20 MG Tablet 30 MG PO (10:30)
[2022-05-28] MEDS: Insulin Glargine-YFGN 100 UNIT/ML Pen 20 UNIT SC ×2 (11:34→21:32)
[2022-05-28] MEDS: Insulin Lispro 100 UNIT/ML INSULN.PEN SC ×3 (11:35→21:31)
[2022-05-28 12:05] LABS: Bedside Glucose 225 mg/dL (74-106)
--- NOTE | 2022-05-28 12:35 | PCM.PN.HOSP ---
Reason for Visit Reason for Visit: Fall Right ankle fracture Subjective Subjective No significant issues overnight. She does appear to become hypoxic at night and placed on 2 L. She admits that she has been diagnosed with sleep apnea but is not compliant with BiPAP at night. Does not wear oxygen either nocturnally. I did recommend that she get further investigated and consider improved compliance after she returns back to [place]. Possible discharge today waiting for overall plans to be solidified by case management. Complains of right ankle pain. Objective Data Objective Data Vital Signs: Vital Signs Temp Pulse Resp BP Pulse Ox O2 Del Method O2 Flow Rate 99.0 F 90 18 146/53 H 92 Room Air 2 05/28/22 07:37 05/28/22 11:29 05/28/22 07:37 05/28/22 07:37 05/28/22 10:32 05/28/22 10:32 05/28/22 08:19 FiO2 95 05/27/22 06:47 Oxygen Flow Rate (L/min) [6] 3 Oxygen Flow Rate (L/min) [5] 6 Oxygen Flow Rate (L/min) [4] 6 Oxygen Flow Rate (L/min) [3] 6 Oxygen Flow Rate (L/min) [2] 6 Oxygen Flow Rate (L/min) [1 ( 6 Initial Baseline)] Oxygen Flow Rate (L/min) 2 Oxygen Delivery Method [6] Nasal Cannula Oxygen Delivery Method [5] Nasal Cannula Oxygen Delivery Method [4] Nasal Cannula Oxygen Delivery Method [3] Nasal Cannula Oxygen Delivery Method [2] Nasal Cannula Oxygen Delivery Method [1 ( Nasal Cannula Initial Baseline)] Oxygen Delivery Method Room Air Weight: 85.275 kg Body Mass Index (BMI) 31.2 Intake & Output: Intake and Output for Last 24 Hours 05/26/22 05/27/22 05/28/22 23:59 23:59 23:59 Intake Total 4100 / 4100 1241.25 / 1241.25 400 / 400 Output Total 1800 / 1800 925 / 925 2100 / 2100 Balance 2300 / 2300 316.25 / 316.25 -1700 / -1700 Lab / Micro Data Result Diagrams: 05/28/22 06:30 05/28/22 06:30 Labs: Laboratory Results - last 24 hr 05/27/22 06:30: Hemoglobin A1c 9.7 H 05/27/22 10:50: POC Glucose 193 H 05/27/22 16:45: POC Glucose 108 H 05/27/22 21:49: POC Glucose 166 H 05/28/22 06:25: POC Glucose 129 H 05/28/22 06:30: WBC 10.2, RBC 3.11 L, Hgb 9.6 L, Hct 29.8 L, MCV 95.8, MCH 30.9, MCHC 32.2, RDW Std Deviation 43.6, RDW Coeff of Barrie 12.5, Plt Count 214, MPV 9.8, Immature Gran % (Auto) 0.400, Neut % (Auto) 71.8 H, Lymph % (Auto) 15.5 L, [place] % (Auto) 8.6, Eos % (Auto) 3.4, Baso % (Auto) 0.3, Absolute Neuts (auto) 7.3, Absolute Lymphs (auto) 1.58, Nucleated RBC % 0 05/28/22 06:30: Sodium 141, Potassium 4.0, Chloride 107, Carbon Dioxide 27.0, Anion Gap 7, BUN 16, Creatinine 1.41 H, Estim Creat Clear Calc 32.93, Est GFR (MDRD) Af Amer 47 L, Est GFR (MDRD) Non-Af 39 L, BUN/Creatinine Ratio 11.3, Glucose 133 H, Calcium 8.8 05/28/22 11:31: POC Glucose 225 H Physical Exam Const alert, oriented x3, no apparent distress and well nourished Constitutional Narrative: Obese, older, white female, sitting up in bed, nursing at bedside, patient appears comfortable HEENT head/scalp atraumatic and moist oral mucous membranes Head and Scalp: normocephalic Resp normal respiratory effort, no retractions, no use of accessory muscles and clear to auscultation bilaterally Auscultation: Negative for rales, rhonchi or wheezes Cardio regular rate, regular rhythm, S1 normal heart sound, S2 normal heart sound, no murmurs, no rub, no gallops and no clicks GI normal to inspection, nondistended, normoactive bowel sounds, soft to palpation, non-tender and non-distended Extremity no clubbing, cyanosis or edema Neuro oriented x3, CN's II-XII intact bilaterally and no focal motor deficits Neuro Narrative: Sensation in right lower extremity is back to baseline, bilateral distal lower extremity neuropathy noted Speech: speech normal Psych affect normal Psych Narrative: Pleasant, appropriately interactive Assessment & Plan Assessment/Plan (1) Ankle fracture, right: (2) Fall: (3) Closed dislocation of right ankle: (4) Fracture of body of right talus: (5) Acute hypercapnic respiratory failure: (6) Myoclonic jerking: PLAN: Plan Acute hypercapnic respiratory failure -Suspect related to spinal anesthesia as well as narcotics given prior to surgery -Avoid heavily sedating medication -Resolved Toxic/metabolic encephalopathy -Secondary to the above -Resolved Myoclonic jerking -Likely related to metabolic disturbance with hypercapnia -Resolved Acute fracture dislocation of the right ankle with talar fracture -OR today for surgical reduction via closed reduction with external fixation and internal fixation -High concern for development of avascular necrosis if delayed surgical planning is the reason for acute surgery plans -Continue oxycodone 5 mg every 4 hours as needed -Continue scheduled Tylenol -Avoid NSAIDs with renal dysfunction at baseline -Recommend bowel regimen -Nonweightbearing -PT/OT following -Podiatry would like patient discharged with Lovenox for DVT prophylaxis at the time of discharge CKD stage IIIb -Baseline serum creatinine is unknown however with fluids her serum creatinine is stabilized between 1.6 and 1.7 -Suspect baseline underlying renal dysfunction likely related to diabetic nephropathy -Serum creatinine 1.41 this morning -Discontinue meloxicam and avoid NSAIDs -I would discontinue meloxicam at discharge -Renally dose medications as needed -Repeat BMP in a.m. Anemia -No baseline data on the patient -Hemoglobin is stable -Normocytic -Reticulocyte count is slightly elevated at 1.61 -Iron level is normal at 59 with an iron saturation of 30.9% -TIBC is low at 191 -Anemia seems to be consistent with anemia of chronic disease DM-2 -Hemoglobin A1c is 10 -Blood sugars overall are fairly well controlled on her regimen -Given her A1c I suspect there is probably some diet noncompliance at home -Continue home Basaglar 20 units twice daily -Continue home Januvia -Sliding scale -Accu-Cheks Diabetic peripheral neuropathy -Continue on gabapentin -Hold home meloxicam Hyperlipidemia -Continue statin Depression -Continue Paxil -Continue home trazodone DVT prophylaxis -Chemoprophylaxis per primary team -Recommend SCDs as able Charges/Coding Visit Charges Inpatient E&M: 36793 Subs Hosp L2
--- NOTE | 2022-05-28 14:32 | CASEMGMT ---
Social Work SW received pc from Liliane Prince, over coordinator for [place]. Liliane informed that SW needs to complete [place] PASRR for pt and that once pt arrives at [facility] the SNF will have to do a change in condition and update the PASRR for the new state. There is still no accepting facility at this time. SW waiting to hear back from 2 different nursing facilities in [place]. PLAN: SNF, pending acceptance CALVIN Rubin
[2022-05-28 16:30] LABS: Bedside Glucose 227 mg/dL (74-106)
[2022-05-28] MEDS: traZODone 50 MG Tablet PO (21:31)
[2022-05-28] MEDS: Atorvastatin Calcium 40 MG Tablet PO (21:32)
[2022-05-28 21:50] LABS: Bedside Glucose 203 mg/dL (74-106)
--- NOTE | 2022-05-28 23:51 | CPS ---
Pt refused bipap
--- NOTE | 2022-05-28 23:59 | NURSING ---
Patient pulled outermost KWABENA wrap off of external fixator and pulled out IV. KWABENA wrap replaced with an additional ABD underneath and new IV placed.
[2022-05-29 02:45] VITALS: BP 143/77; PULSE 85; RESP 18; TEMP 36.7; O2SAT 92
[2022-05-29] MEDS: Acetaminophen 500 MG Tablet 1000 MG PO ×3 (05:45→20:55)
[2022-05-29 06:06] LABS: Bedside Glucose 106 mg/dL (74-106)
[2022-05-29 07:50] VITALS: O2SAT 94
--- NOTE | 2022-05-29 08:01 | CASEMGMT ---
Social Work SW received VM from Jose at [facility]. Jose stated pr referral looks goods indicating acceptance. ELIZABETH will call to clarify and continue on with d/c plan. PLAN: [facility] in [place], fololwing confirmation of acceptance CALVIN Rubin
--- NOTE | 2022-05-29 08:30 | CASEMGMT ---
Social Work SW spoke to pt , Wilmar, who informed that severe weather is coming to [place] and it is not safe for pt to discharge and return home at this time. Wilmar asked about alternative options. ELIZABETH explained pt could go to SNF in [place] and wait for surgery that can be scheduled to happen here. Or possibly go to SNF for a week in [place] and then transfer to [facility] after sometime to return home to [place] and have surgery there. Wilmar stated could not reach pt and asked SW to go to pt room and ask pt to turn on phone. ELIZABETH explained to Wilmar will do this once on MedSur floor. Wilmar grateful, stated would contact ELIZABETH later this morning after discussion of options with pt. CALVIN Rubin
--- NOTE | 2022-05-29 09:29 | PCM.PROGNOTE ---
Subjective Subjective Patient had some altered mental status overnight and was found banging her external fixator up against the end of the bed to try to remove it. Patient seen this morning AOx3. Patient notes that she does not remember this event but states that she her pain is minimal at current. Patient denies any fever chills nausea vomiting chest pain calf pain shortness of breath. No other complaints. Objective Data Objective Data Vital Signs: Vital Signs Temp Pulse Resp BP Pulse Ox O2 Del Method O2 Flow Rate 98.0 F 85 18 143/77 H 94 Room Air 2 05/29/22 02:45 05/29/22 02:45 05/29/22 02:45 05/29/22 02:45 05/29/22 07:50 05/29/22 07:50 05/28/22 08:19 FiO2 95 05/27/22 06:47 Oxygen Flow Rate (L/min) [6] 3 Oxygen Flow Rate (L/min) [5] 6 Oxygen Flow Rate (L/min) [4] 6 Oxygen Flow Rate (L/min) [3] 6 Oxygen Flow Rate (L/min) [2] 6 Oxygen Flow Rate (L/min) [1 ( 6 Initial Baseline)] Oxygen Flow Rate (L/min) 2 Oxygen Delivery Method [6] Nasal Cannula Oxygen Delivery Method [5] Nasal Cannula Oxygen Delivery Method [4] Nasal Cannula Oxygen Delivery Method [3] Nasal Cannula Oxygen Delivery Method [2] Nasal Cannula Oxygen Delivery Method [1 ( Nasal Cannula Initial Baseline)] Oxygen Delivery Method Room Air Weight: 85.275 kg Body Mass Index (BMI) 31.2 Intake & Output: Intake and Output for Last 24 Hours 05/27/22 05/28/22 05/29/22 23:59 23:59 23:59 Intake Total 1241.25 / 1241.25 900 / 1100 500 / 500 Output Total 925 / 925 3300 / 3750 875 / 875 Balance 316.25 / 316.25 -2400 / -2650 -375 / -375 Lab / Micro Data Result Diagrams: 05/28/22 06:30 05/28/22 06:30 Labs: Laboratory Results - last 24 hr 05/28/22 11:31: POC Glucose 225 H 05/28/22 16:06: POC Glucose 227 H 05/28/22 21:30: POC Glucose 203 H 05/29/22 05:43: POC Glucose 106 Physical Exam Narrative Neurovascular status unchanged from previous evaluation. New fracture blister to anterior ankle superficial in nature. Stable lateral ankle hemorrhagic fracture blister. Pin sites appear clean and devoid of infection. Delta frame external fixator intact to right lower extremity. No loss of reduction. Edema significantly improved today. No sign DVT. Assessment & Plan Assessment/Plan (1) Fracture of body of right talus: PLAN: Exam performed Patient 3 days postop. Awaiting SNF placement. Patient is traveling back to [place] due to this we will discharge on enoxaparin as well as p.o. antibiotics for prophylaxis. Patient will seek additional orthopedic intervention in her hometown. Discussed patient can stay in this area we can likely attempt open reduction internal fixation within the next 2 weeks. Patient wishes to go back to [place]. ORIF for this patient may be difficult due to reasons documented below. Due to severity of traumatic injury initial ORIF could not be performed due to swelling concern for breakdown soft tissue envelope, poorly controlled diabetes with hemoglobin A1c greater than 10, severe comminution to the posterior talar dome. External fixation was applied to stabilize the fracture dislocation site evaluate the soft tissue envelope and allow for edema resolution. Definitive ORIF may not be possible due to the level fragmentation. Patient may be looking at prolonged immobilization with possible custom bracing versus reconstructive surgery at a future date. Due to patient traveling back to [place] this will likely be with another foot and ankle surgeon. We will consider discharge if pain is controlled, patient is ready and patient gets placed in SNF.
--- NOTE | 2022-05-29 09:50 | WOUNDNOTE ---
In with Dr Peters to reassess the right lower leg. removed KWABENA wraps and dressings. there was still a moderate amount of drainage noted from the most distal pin sites. no redness noted. edema and bruising much improved. pt tolerated dressing change well.
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
[2022-05-29] MEDS: Gabapentin 600 MG Tablet PO ×2 (10:45→20:55)
[2022-05-29] MEDS: Enoxaparin 30 MG/0.3 ML Syringe SC (10:45)
[2022-05-29] MEDS: Paroxetine 20 MG Tablet 30 MG PO (10:45)
[2022-05-29] MEDS: oxyCODONE 5 MG Tablet PO (10:45)
[2022-05-29] MEDS: LINAGLIPTIN 5 MG TABLET PO (10:46)
[2022-05-29] MEDS: cycloBENZAPRine HCl 10 MG Tablet PO ×2 (10:46→20:54)
[2022-05-29 10:54] VITALS: BP 136/70; PULSE 84; RESP 18; TEMP 36.9; O2SAT 94
[2022-05-29] MEDS: Insulin Glargine-YFGN 100 UNIT/ML Pen 20 UNIT SC ×2 (11:35→20:55)
[2022-05-29] MEDS: Insulin Lispro 100 UNIT/ML INSULN.PEN SC ×3 (11:36→20:54)
[2022-05-29 12:01] LABS: Bedside Glucose 166 mg/dL (74-106)
--- NOTE | 2022-05-29 13:04 | ADUL_ITS ---
Reason For Study: Arterial Right Velocities Common Femoral Artery, dist = 127.1 cm./sec. Supf Femoral Artery, prox = 158.1 cm./sec. Supf Femoral Artery, mid = 127.1 cm./sec. Supf Femoral Artery, dist. = 151.2 cm./sec. Profunda Femoral Artery = 83.4 cm./sec. Popliteal Artery, mid = 92.0 cm./sec. Ant. Tibial Artery, prox = 33.9 cm./sec. Post. Tibial Artery, prox = 40.0 cm./sec. Peroneal Artery, prox = 61.3 cm./sec. Procedure Unable to visualize mid and distal calf arteries due to medical hardware and bandages/wraps. /US Art Duplex Unilat Lower Ext Interpretation Summary Patent right lower extremity arterial system with normal velocities and wavefor ms throughout. No evidence of stenosis or occlusion Limited study mid/distal calf due to dressings. Ordering Physician: Oli Peters Referring Physician: N/A Performed By: Daren Leary RVT
[2022-05-29 15:34] VITALS: BP 139/52; PULSE 81; RESP 18; TEMP 36.9; O2SAT 94
[2022-05-29 17:00] LABS: Bedside Glucose 220 mg/dL (74-106)
[2022-05-29 20:49] VITALS: BP 156/64; PULSE 93; RESP 18; TEMP 36.6; O2SAT 94
[2022-05-29] MEDS: traZODone 50 MG Tablet PO (20:54)
[2022-05-29] MEDS: Atorvastatin Calcium 40 MG Tablet PO (20:55)
[2022-05-29 21:21] LABS: Bedside Glucose 223 mg/dL (74-106)
--- NOTE | 2022-05-29 21:38 | CPS ---
Talked to pt about wearing PAP therapy for the night, pt refused.
[2022-05-30 04:00] VITALS: BP 136/64; PULSE 79; RESP 18; TEMP 36.7; O2SAT 94
[2022-05-30] MEDS: Acetaminophen 500 MG Tablet 1000 MG PO ×2 (06:32→13:45)
[2022-05-30 06:41] LABS: Absolute Lymphocyte Count 1.78 X10^3/uL (0.83-4.51); Absolute Neutrophil Count 5.7 X10^3/uL (2.0-7.7); Basophil# 0.05 X10^3/uL; Basophil% 0.6 % (0-1); Eosinophils% 4.6 % (0-5); Hematocrit 33.1 % (37-47); Hemoglobin 10.9 g/dL (12.0-15.0); Lymphocyte # 1.78 X10^3/ul (0.83-4.51); Lymphocyte % 20.4 % (19-41); Mean Corp Hgb Conc 32.9 g/dL (32-36); Mean Corpuscular Hgb 31.1 pg (27.0-32.0); Mean Corpuscular Volume 94.3 fL (81-99); Mean Platelet Vol. 9.7 fl (6.2-12.0); Monocyte# 0.77 X10^3/uL; Monocyte% 8.8 % (0-10); NRBC Flagged by Analyzer 0 % (0-5); Neutrophil # 5.71 X10^3/uL (2.7-7.7); Neutrophil % 65.4 % (47-70); Platelet Count 293 K/mm3 (150-450); RBC Distribution Width CV 12.7 % (11.6-14.6); Red Blood Count 3.51 M/mm3 (4.2-5.4); White Blood Count 8.7 K/mm3 (4.4-11.0)
[2022-05-30 06:56] LABS: Bedside Glucose 130 mg/dL (74-106)
[2022-05-30 07:11] LABS: Anion Gap 4 (5-15); BUN 28 mg/dL (7-18); BUN/Creat Ratio 18.7 RATIO (10-20); Calcium,Total 9.4 mg/dL (8.5-10.1); Chloride 106 mmol/L (98-107); EST Glomerular Filtration Rate 36 mL/min (>60); Est Glom Filt Rate - Afr Amer 44 mL/min (>60); Estimated Creatinine Clearance 30.95 ml/min; Glucose 141 mg/dL (74-106); Potassium 3.8 mmol/L (3.5-5.1); Sodium Level 141 mmol/L (136-145)
[2022-05-30 08:51] VITALS: O2SAT 93
--- NOTE | 2022-05-30 09:35 | PCM.TXEXTCAR ---
Diet Diet Order/Speech Therapy: 05/26/22 13:10 Diet: Carbohydrate Controlled Is pt able to select menu?: Yes Routine Orders/Code Status Routine Lab Work: CBC and BMP Code Status: Full Code Wound(s) RIGHT LOWER LEG: Wound Type: Surgical Incision Suggestions for Active Care Positions to Avoid: keep heels elevated off bed to prevent pressure injury Hours to sit in a chair: 3 Times a day to sit in chair: 3 Therapies Weight Bearing: Non weight bearing (right lower extremity) Problem/Diagnosis (1) Fracture of body of right talus: Status: Acute Code(s): S92.121A - Displaced fracture of body of right talus, initial encounter for closed fracture Plan: Exam performed Patient 3 days postop. Awaiting SNF placement. Patient is traveling back to [place] due to this we will discharge on enoxaparin as well as p.o. antibiotics for prophylaxis. Patient will seek additional orthopedic intervention in her hometown. Discussed patient can stay in this area we can likely attempt open reduction internal fixation within the next 2 weeks. Patient wishes to go back to [place]. ORIF for this patient may be difficult due to reasons documented below. Due to severity of traumatic injury initial ORIF could not be performed due to swelling concern for breakdown soft tissue envelope, poorly controlled diabetes with hemoglobin A1c greater than 10, severe comminution to the posterior talar dome. External fixation was applied to stabilize the fracture dislocation site evaluate the soft tissue envelope and allow for edema resolution. Definitive ORIF may not be possible due to the level fragmentation. Patient may be looking at prolonged immobilization with possible custom bracing versus reconstructive surgery at a future date. Due to patient traveling back to [place] this will likely be with another foot and ankle surgeon. We will consider discharge if pain is controlled, patient is ready and patient gets placed in SNF. Plan Patient suffered a displaced closed talar fracture dislocation with dislocation of the ankle and subtalar joint. Due to soft tissue swelling skin breakdown and diabetic status closed reduction with application of external fixation performed intraoperatively. Patient will require definitive surgical management in the next 2 to 3 weeks. Meantime patient will discharge to half-way facility without right lower extremity nonweightbearing status. Patient should get daily dressing changes as documented above. Patient should keep right lower extremity elevated. Patient will follow up in my clinic in 1 week. Allergies/Procedures Done in Hospital Allergies No Known Allergies Allergy (Verified 05/25/22 12:18) Type of Care/Length of Stay Estimated LOS: More Than 30 Days Type of Care Needed: Skilled Rehab Potential: Good Prognosis: Good Additional Orders/Day of Discharge Day of Discharge: 05/30/22 Dietary and Speech Recommendations Dietitian Recommendations/Changes: Recommend carbohydrate controlled diabetic diet. Can supplement with Neno or Glucerna daily. Follow Up Care Please follow up with your Primary Care Physician in: Patient will follow up in my clinic in 1 week. Call for appointment. Please Follow Up With: Oli Peters DPM When: call for appointment Discharge Plan Admission Admit Date/Time: 05/25/22 17:09 Primary Reason for Your Visit: R Ankle fracture Attending Provider: Oli Peters Primary Care Provider: Care Physician,No Primary Consulting Providers: Cynthia Silva Instructions Additional Instructions / Restrictions: Recommend daily dressing dressing change with pin site cleansing using isopropyl alcohol. Apply betadine/adaptic to pin sites along with 4x4s, kerlix and overlying KWABENA. Patient will follow up in my office next week, her appointment is scheduled. Call for information. Patient Non-weightbearing on right Patient should keep right lower extremity above heart for edema management Patient shoud take 500mg acetaminophen [id number] as needed for supplemental pain relief Discharge Orders/Prescriptions Prescriptions: New enoxaparin 30 mg/0.3 mL syringe 30 mg subcut DAILY Qty: 12 0RF cephalexin 500 mg capsule 500 mg PO BID Qty: 14 0RF oxycodone 5 mg tablet 2.5 mg PO Q4H PRN (Reason: pain) 7 Days Qty: 21 0RF Continued cyclobenzaprine 10 mg tablet 10 mg PO BID Label Comments: TAKE 1 TABLET BY MOUTH TWICE DAILY atorvastatin 40 mg tablet 40 mg PO DAILY Label Comments: TAKE 1 AND 1/2 TABLETS BY MOUTH EVERY DAY atorvastatin 40 mg tablet 20 mg PO QHS Label Comments: TAKE 1 AND 1/2 TABLETS BY MOUTH EVERY DAY gabapentin 600 mg tablet 600 mg PO BID Label Comments: TAKE 1 TABLET BY MOUTH TWICE DAILY trazodone 50 mg tablet 50 mg PO QHS Label Comments: TAKE 1 TABLET BY MOUTH EVERY DAY AT BEDTIME paroxetine HCl 30 mg tablet 30 mg PO DAILY Label Comments: TAKE 1 TABLET BY MOUTH EVERY DAY Januvia 100 mg tablet 100 mg PO DAILY Label Comments: TAKE 1 TABLET BY MOUTH EVERY DAY insulin glargine [Basaglar Katina U-100 Insulin] 100 unit/mL (3 mL) insulin pen 20 unit SUBCUT BID Label Comments: ADMINISTER 20 UNITS UNDER THE SKIN TWICE DAILY IN THE MORNING AND AT BEDTIME Discontinued meloxicam 15 mg tablet 15 mg PO DAILY Label Comments: TAKE 1 TABLET BY MOUTH EVERY DAY Referrals / Follow Up: Care Physician,No Primary [Primary Care Provider] - Disposition Disposition (needs filled in before D/C Order can be placed): [facility]-Way Facility
[2022-05-30 09:40] VITALS: BP 136/43; PULSE 89; RESP 18; TEMP 36.7; O2SAT 95
--- NOTE | 2022-05-30 09:42 | WOUNDNOTE ---
Dressing changed to the right lower leg. no redness noted. edema and bruising continue to improve. still moderate drainage noted from the right most distal pin sites. patient tolerated dressing change well. plan is for discharge to [facility] today.
--- NOTE | 2022-05-30 09:45 | DS.PCM_ITS ---
Providers Date of Admission: 05/25/22 Primary Care Physician: No Primary Care Phys Reason For Visit: RIGHT CLOSED DISPLACED TALAR BODY FRACTURE Diagnosis Discharge Diagnosis (1) Fracture of body of right talus: Status: Acute Code(s): S92.121A - Displaced fracture of body of right talus, initial encounter for closed fracture Plan: Exam performed Patient 3 days postop. Awaiting SNF placement. Patient is traveling back to [place] due to this we will discharge on enoxaparin as well as p.o. antibiotics for prophylaxis. Patient will seek additional orthopedic intervention in her hometown. Discussed patient can stay in this area we can likely attempt open reduction internal fixation within the next 2 weeks. Patient wishes to go back to [place]. ORIF for this patient may be difficult due to reasons documented below. Due to severity of traumatic injury initial ORIF could not be performed due to swelling concern for breakdown soft tissue envelope, poorly controlled diabetes with hemoglobin A1c greater than 10, severe comminution to the posterior talar dome. External fixation was applied to stabilize the fracture dislocation site evaluate the soft tissue envelope and allow for edema resolution. Definitive ORIF may not be possible due to the level fragmentation. Patient may be looking at prolonged immobilization with possible custom bracing versus reconstructive surgery at a future date. Due to patient traveling back to [place] this will likely be with another foot and ankle surgeon. We will consider discharge if pain is controlled, patient is ready and patient gets placed in SNF. Plan Patient suffered a displaced closed talar fracture dislocation with dislocation of the ankle and subtalar joint. Due to soft tissue swelling skin breakdown and diabetic status closed reduction with application of external fixation performed intraoperatively. Patient will require definitive surgical management in the next 2 to 3 weeks. Meantime patient will discharge to care home facility without right lower extremity nonweightbearing status. Patient should get daily dressing changes as documented above. Patient should keep right lower extremity elevated. Patient will follow up in my clinic in 1 week. Medications at Discharge Home Medications atorvastatin 40 mg tablet 20 mg PO QHS cholesterol 05/25/22 atorvastatin 40 mg tablet 40 mg PO DAILY cholesterol 05/25/22 cyclobenzaprine 10 mg tablet 10 mg PO BID muscle relaxer 05/25/22 gabapentin 600 mg tablet 600 mg PO BID neuropathy 05/25/22 insulin glargine 100 unit/mL (3 mL) subcutaneous pen (Basaglar KwikPen U-100 Insulin) 20 unit subcut BID diabetes 05/25/22 paroxetine HCl 30 mg tablet 30 mg PO DAILY antidepressant 05/25/22 sitagliptin phosphate 100 mg tablet (Januvia) 100 mg PO DAILY diabetes 05/25/22 trazodone 50 mg tablet 50 mg PO QHS sleep 05/25/22 enoxaparin 30 mg/0.3 mL subcutaneous syringe 30 mg (0.3 mL) subcut DAILY #12 mL 05/28/22 cephalexin 500 mg capsule 500 mg PO BID #14 caps 05/29/22 oxycodone 5 mg tablet 2.5 mg PO Q4H PRN pain 7 days #21 tabs 05/30/22 Hospital Course Operations - (Right ankle closed reduction with application of external fixator) Summary of Care Provided Minutes Spent on Discharge: 30 Hospital Course: Patient suffered a closed talar fracture with dislocation of ankle and subtalar joint after she tripped over her daughter's dog leash is and fell down the stairs. Due to soft tissue swelling patient's diabetic status with A1c of 10 closed reduction with application of external fixation was applied. Due to patient's advanced age and likely further care and prolonged nonweightbearing patient will be transferred to a care home facility for additional management. Within the next 2 to 3 weeks patient will undergo additional surgery to stabilize her fracture dislocation upon resolution of the soft tissue envelope. Patient will follow up in my clinic next week for additional planning. Physical Exam Narrative Edema improved today. No additional wounds. There is noted to be some hemorrhagic fracture blisters to anterior lateral ankle. Pin sites appear devoid of any acute infection. No changes to neurovascular status. Const alert and oriented x3 Weight / BMI Weight Weight: 85.275 kg Body Mass Index (BMI) 31.2 ABG / Lab / Microbiology Data Result Diagrams: 05/30/22 06:20 05/30/22 06:20 Laboratory: Laboratory Results - last 24 hr 05/29/22 11:33: POC Glucose 166 H 05/29/22 16:33: POC Glucose 220 H 05/29/22 20:53: POC Glucose 223 H 05/30/22 06:20: WBC 8.7, RBC 3.51 L, Hgb 10.9 L, Hct 33.1 L, MCV 94.3, MCH 31.1, MCHC 32.9, RDW Std Deviation 44.0 H, RDW Coeff of Barrie 12.7, Plt Count 293, MPV 9.7, Immature Gran % (Auto) 0.200, Neut % (Auto) 65.4, Lymph % (Auto) 20.4, [place] % (Auto) 8.8, Eos % (Auto) 4.6, Baso % (Auto) 0.6, Absolute Neuts (auto) 5.7, Absolute Lymphs (auto) 1.78, Nucleated RBC % 0 05/30/22 06:20: Sodium 141, Potassium 3.8, Chloride 106, Carbon Dioxide 31.0, Anion Gap 4 L, BUN 28 H, Creatinine 1.50 H, Estim Creat Clear Calc 30.95, Est GFR (MDRD) Af Amer 44 L, Est GFR (MDRD) Non-Af 36 L, BUN/Creatinine Ratio 18.7, Glucose 141 H, Calcium 9.4 05/30/22 06:31: POC Glucose 130 H Radiography Diagnostic Testing: Radiology Impression Duplex Scan Lower Extremity Artery 05/29/22 13:04 Interpretation Summary Patent right lower extremity arterial system with normal velocities and waveforms throughout. No evidence of stenosis or occlusion Limited study mid/distal calf due to dressings. Ordering Physician: Oli Peters Referring Physician: N/A Performed By: Daren Leary RVT D/C Instructions Discharge Diet: - (Carbohydrate controlled diet) Discharge Activity: - (Nonweightbearing right lower extremity) Weight Bearing Status: No weight bearing (Right lower extremity) Lifting Restricted to (Lbs): 0 Keep extremity elevated above heart level: Operative Extremity (Right lower extremity) Call your doctor if your incision/area has: Continuous Slow Oozing, Sudden Increased Bleeding, Increased Pain/ Swelling, Increased Redness, Foul Smelling Discharge and Swelling at the incision site Call your doctor if you observe: Fever of 101 or Higher, Shortness of breath, Chest pain and Calf discomfort Change Dressing in: Daily per Additional Instructions: Follow-up in 1 week for surgical planning Pending Tests Upon Discharge: None Please Follow Up With: Oli Peters DPM When: 1 week Meaningful Use Info Meaningful Use Diagnoses (Choose all that apply): None applicable Discharge Plan Admission Admit Date/Time: 05/25/22 17:09 Primary Reason for Your Visit: R Ankle fracture Attending Provider: Oli Peters Primary Care Provider: Care Physician,No Primary Consulting Providers: Cynthia Silva Instructions Additional Instructions / Restrictions: Recommend daily dressing dressing change with pin site cleansing using isopropyl alcohol. Apply betadine/adaptic to pin sites along with 4x4s, kerlix and overlying KWABENA. Patient will follow up in my office next week, her appointment is scheduled. Call for information. Patient Non-weightbearing on right Patient should keep right lower extremity above heart for edema management Patient shoud take 500mg acetaminophen [id number] as needed for supplemental pain relief Discharge Orders/Prescriptions Prescriptions: New enoxaparin 30 mg/0.3 mL syringe 30 mg subcut DAILY Qty: 12 0RF cephalexin 500 mg capsule 500 mg PO BID Qty: 14 0RF oxycodone 5 mg tablet 2.5 mg PO Q4H PRN (Reason: pain) 7 Days Qty: 21 0RF Continued cyclobenzaprine 10 mg tablet 10 mg PO BID Label Comments: TAKE 1 TABLET BY MOUTH TWICE DAILY atorvastatin 40 mg tablet 40 mg PO DAILY Label Comments: TAKE 1 AND 1/2 TABLETS BY MOUTH EVERY DAY atorvastatin 40 mg tablet 20 mg PO QHS Label Comments: TAKE 1 AND 1/2 TABLETS BY MOUTH EVERY DAY gabapentin 600 mg tablet 600 mg PO BID Label Comments: TAKE 1 TABLET BY MOUTH TWICE DAILY trazodone 50 mg tablet 50 mg PO QHS Label Comments: TAKE 1 TABLET BY MOUTH EVERY DAY AT BEDTIME paroxetine HCl 30 mg tablet 30 mg PO DAILY Label Comments: TAKE 1 TABLET BY MOUTH EVERY DAY Januvia 100 mg tablet 100 mg PO DAILY Label Comments: TAKE 1 TABLET BY MOUTH EVERY DAY insulin glargine [Basaglar KwikPen U-100 Insulin] 100 unit/mL (3 mL) insulin pen 20 unit SUBCUT BID Label Comments: ADMINISTER 20 UNITS UNDER THE SKIN TWICE DAILY IN THE MORNING AND AT BEDTIME Discontinued meloxicam 15 mg tablet 15 mg PO DAILY Label Comments: TAKE 1 TABLET BY MOUTH EVERY DAY Referrals / Follow Up: Care Physician,No Primary [Primary Care Provider] - Disposition Disposition (needs filled in before D/C Order can be placed): [facility]
[2022-05-30] MEDS: cycloBENZAPRine HCl 10 MG Tablet PO (09:46)
[2022-05-30] MEDS: LINAGLIPTIN 5 MG TABLET PO (09:46)
[2022-05-30] MEDS: Gabapentin 600 MG Tablet PO (09:46)
[2022-05-30] MEDS: Enoxaparin 30 MG/0.3 ML Syringe SC (09:46)
[2022-05-30] MEDS: Paroxetine 20 MG Tablet 30 MG PO (09:47)
[2022-05-30] MEDS: Insulin Lispro 100 UNIT/ML INSULN.PEN SC (11:34)
[2022-05-30] MEDS: Insulin Glargine-YFGN 100 UNIT/ML Pen 20 UNIT SC (11:34)
--- NOTE | 2022-05-30 11:34 | CASEMGMT ---
Addendum entered by Elizabeth Reaves 05/30/22 12:32: Social Work Return call from pt Wilmar and updated on discharge plan. Wilmar is agreeable. CALVIN Diop Original Note: Social Work Per physician pt is ready for discharge today. 7000 convalescent form completed in [facility] and sent along with discharge orders and covid results to [facility] via [facility]. Transportation arranged with [facility] for 4:30 pickup via cot. met with pt and she is agreeable to discharge plan as stated above. VM left for pt Wilmar to update on discharge plan. [facility] and bedside nurse notified of discharge time. Disposition: [facility], skilled level of care under convalescent stay. CALVIN Kelley
[2022-05-30 11:56] LABS: Bedside Glucose 322 mg/dL (74-106)
--- NOTE | 2022-05-30 12:00 | PCM.PN.HOSP ---
Reason for Visit Reason for Visit: Diagnoses Myoclonus (05/25/22) Acute respiratory failure with hypercapnia (05/25/22) Other fracture of right lower leg, initial encounter for closed fracture (05/25/22) Displaced fracture of body of right talus, initial encounter for closed fracture (05/25/22) Dislocation of right ankle joint, initial encounter (05/25/22) Unspecified fall, initial encounter (05/25/22) Subjective Subjective Patient reports that she has no complaints other than her ongoing ankle pain. Plan is to discharge to a local skilled facility and have her next procedure done here with podiatry. It sounds as if this may occur in 2 weeks. Medically patient has been stable and is cleared for discharge. Objective Data Objective Data Vital Signs: Vital Signs Temp Pulse Resp BP Pulse Ox O2 Del Method O2 Flow Rate 98.0 F 89 18 136/43 H 95 Room Air 2 05/30/22 09:40 05/30/22 09:40 05/30/22 09:40 05/30/22 09:40 05/30/22 09:40 05/30/22 10:03 05/28/22 08:19 FiO2 95 05/27/22 06:47 Oxygen Flow Rate (L/min) [6] 3 Oxygen Flow Rate (L/min) [5] 6 Oxygen Flow Rate (L/min) [4] 6 Oxygen Flow Rate (L/min) [3] 6 Oxygen Flow Rate (L/min) [2] 6 Oxygen Flow Rate (L/min) [1 ( 6 Initial Baseline)] Oxygen Flow Rate (L/min) 2 Oxygen Delivery Method [6] Nasal Cannula Oxygen Delivery Method [5] Nasal Cannula Oxygen Delivery Method [4] Nasal Cannula Oxygen Delivery Method [3] Nasal Cannula Oxygen Delivery Method [2] Nasal Cannula Oxygen Delivery Method [1 ( Nasal Cannula Initial Baseline)] Oxygen Delivery Method Room Air Weight: 85.275 kg Body Mass Index (BMI) 31.2 Intake & Output: Intake and Output for Last 24 Hours 05/28/22 05/29/22 05/30/22 23:59 23:59 23:59 Intake Total 900 / 1100 1460 / 1760 400 / 400 Output Total 3300 / 3750 1925 / 2125 200 / 200 Balance -2400 / -2650 -465 / -365 200 / 200 Lab / Micro Data Result Diagrams: 05/30/22 06:20 05/30/22 06:20 Labs: Laboratory Results - last 24 hr 05/29/22 11:33: POC Glucose 166 H 05/29/22 16:33: POC Glucose 220 H 05/29/22 20:53: POC Glucose 223 H 05/30/22 06:20: WBC 8.7, RBC 3.51 L, Hgb 10.9 L, Hct 33.1 L, MCV 94.3, MCH 31.1, MCHC 32.9, RDW Std Deviation 44.0 H, RDW Coeff of Barrie 12.7, Plt Count 293, MPV 9.7, Immature Gran % (Auto) 0.200, Neut % (Auto) 65.4, Lymph % (Auto) 20.4, [place] % (Auto) 8.8, Eos % (Auto) 4.6, Baso % (Auto) 0.6, Absolute Neuts (auto) 5.7, Absolute Lymphs (auto) 1.78, Nucleated RBC % 0 05/30/22 06:20: Sodium 141, Potassium 3.8, Chloride 106, Carbon Dioxide 31.0, Anion Gap 4 L, BUN 28 H, Creatinine 1.50 H, Estim Creat Clear Calc 30.95, Est GFR (MDRD) Af Amer 44 L, Est GFR (MDRD) Non-Af 36 L, BUN/Creatinine Ratio 18.7, Glucose 141 H, Calcium 9.4 05/30/22 06:31: POC Glucose 130 H 05/30/22 11:33: POC Glucose 322 H Micro: Microbiology 05/30/22 09:56 Nasal Secretion SARS-CoV-2 Antigen (Rapid) - Final Radiography Diagnostic Testing: Radiology Impression Duplex Scan Lower Extremity Artery 05/29/22 13:04 Interpretation Summary Patent right lower extremity arterial system with normal velocities and waveforms throughout. No evidence of stenosis or occlusion Limited study mid/distal calf due to dressings. Ordering Physician: Oli Peters Referring Physician: N/A Performed By: Daren Leary RVT Physical Exam Const alert, oriented x3, no apparent distress and well nourished Constitutional Narrative: Obese, older, white female, sitting up in bed, nursing at bedside, patient appears comfortable HEENT head/scalp atraumatic and moist oral mucous membranes HEENT Narrative: Mallampati 2-3, no thrush, neck is short and thick with retrognathia Head and Scalp: normocephalic Resp normal respiratory effort, no retractions, no use of accessory muscles and clear to auscultation bilaterally Auscultation: Negative for rales, rhonchi or wheezes Cardio regular rate, regular rhythm, S1 normal heart sound, S2 normal heart sound, no murmurs, no rub, no gallops and no clicks GI normal to inspection, nondistended, normoactive bowel sounds, soft to palpation and non-tender Extremity no clubbing, cyanosis or edema Extremity Narrative: 2+ pedal pulses left lower extremity, right lower extremity external fixating device in place, cap refill at toes is 2+ Neuro oriented x3, CN's II-XII intact bilaterally and no focal motor deficits Neuro Narrative: Mild chronic sensory deficits noted in bilateral distal lower extremities however sensation from block in right lower extremity has resolved and is back to baseline Speech: speech normal Psych affect normal Psych Narrative: Pleasant, appropriately interactive Assessment & Plan Assessment/Plan (1) Ankle fracture, right: (2) Fall: (3) Closed dislocation of right ankle: (4) Fracture of body of right talus: (5) Acute hypercapnic respiratory failure: (6) Myoclonic jerking: PLAN: Plan Acute hypercapnic respiratory failure -Suspect related to spinal anesthesia as well as narcotics given prior to surgery along with untreated sleep apnea -Avoid heavily sedating medication -Resolved -Would recommend extubating to BiPAP after neck surgery Toxic/metabolic encephalopathy -Secondary to the above -Resolved Myoclonic jerking -Likely related to metabolic disturbance with hypercapnia -Resolved Acute fracture dislocation of the right ankle with talar fracture -OR today for surgical reduction via closed reduction with external fixation and internal fixation -High concern for development of avascular necrosis if delayed surgical planning is the reason for acute surgery plans -Continue oxycodone 5 mg every 4 hours as needed -Continue scheduled Tylenol -Avoid NSAIDs with renal dysfunction at baseline -Recommend bowel regimen -Nonweightbearing -PT/OT following -Podiatry would like patient discharged with Lovenox for DVT prophylaxis at the time of discharge CKD stage IIIb -Baseline serum creatinine is unknown however with fluids her serum creatinine is stabilized between 1.6 and 1.7 -Suspect baseline underlying renal dysfunction likely related to diabetic nephropathy -Serum creatinine 1.50 this morning -Discontinue meloxicam and avoid NSAIDs -I would discontinue meloxicam at discharge -Renally dose medications as needed -Repeat BMP in a.m. Anemia -No baseline data on the patient -Hemoglobin is stable -Normocytic -Reticulocyte count is slightly elevated at 1.61 -Iron level is normal at 59 with an iron saturation of 30.9% -TIBC is low at 191 -Anemia seems to be consistent with anemia of chronic disease DM-2 -Hemoglobin A1c is 10 -Blood sugars overall are fairly well controlled on her regimen--> fasting sugar here this morning is 141 -Postprandial sugars appear to be higher and patient may need some scheduled log with meals however I would continue to monitor this and out as an outpatient if prandial sugars remain elevated -Given her A1c I suspect there is probably some diet noncompliance at home -Continue home Basaglar 20 units twice daily -Continue home Januvia -Sliding scale -Accu-Cheks Diabetic peripheral neuropathy -Continue on gabapentin -Hold home meloxicam--> recommend discontinuing at discharge Hyperlipidemia -Continue statin Depression -Continue Paxil -Continue home trazodone DVT prophylaxis -Chemoprophylaxis per primary team--> ongoing Lovenox Disposition: -Patient is medically cleared for discharge Charges/Coding Visit Charges Inpatient E&M: 79427 Subs Hosp L2
[2022-05-30] MEDS: oxyCODONE 5 MG Tablet PO (13:44)
[2022-05-30 14:38] VITALS: BP 132/55; PULSE 89; RESP 18; TEMP 36.9; O2SAT 96
--- NOTE | 2022-05-30 15:28 | NURSING ---
Report called to Carlota at [facility], pt will be picked up at 4:30
== END 2022-05-30 16:25 | disposition skilled nursing facility (03) | DRG 562 ==
LOC: ED 15:30 → MS3 15:42
PROVIDERS: Anesthesiology; Internal Medicine; Admitting Provider Podiatrist; Emergency Provider Emergency Medicine; Visit Provider Podiatrist
PROC: 0QSLXZZ Reposition Right Tarsal, External Approach (ICD-10-PCS; principal; 2022-05-26 08:00)
DX: S92.121A Displaced fracture of body of right talus, initial encounter for closed fracture (principal); J96.02 Acute respiratory failure with hypercapnia; G92.8 Other toxic encephalopathy; E11.42 Type 2 diabetes mellitus with diabetic polyneuropathy; E11.21 Type 2 diabetes mellitus with diabetic nephropathy; Z79.4 Long term (current) use of insulin; N18.32 Chronic kidney disease, stage 3b; E11.22 Type 2 diabetes mellitus with diabetic chronic kidney disease; D63.8 Anemia in other chronic diseases classified elsewhere; F41.9 Anxiety disorder, unspecified; F17.200 Nicotine dependence, unspecified, uncomplicated; E78.5 Hyperlipidemia, unspecified; G47.30 Sleep apnea, unspecified; W01.0XXA Fall on same level from slipping, tripping and stumbling without subsequent striking against object, initial encounter; I12.9 Hypertensive chronic kidney disease with stage 1 through stage 4 chronic kidney disease, or unspecified chronic kidney disease; F32.A Depression, unspecified; T40.605A Adverse effect of unspecified narcotics, initial encounter; Z79.891 Long term (current) use of opiate analgesic; Z91.119 Patient's noncompliance with dietary regimen due to unspecified reason
CPT/HCPCS: 36415; 36600; 71046; 73590; 73610; 73630; 73700; 76000; 80048; 80053; 81001; 82728; 82803; 82962; 83036; 83540; 83550; 83735; 84100; 85025; 85045; 87426; 93005; 93926; 94002; 94003; 97162; 97166; 97530; 97535; 99152; 99153; 99285; C1776; J7030; J7120; A4216; J1940; J2405

== ENCOUNTER → 2022-06-04 | Outpatient (CLI) | payer MEDICARE, BC, SELFPAY ==
[2022-06-04 12:25] LABS: Absolute Lymphocyte Count 1.72 X10^3/uL (0.83-4.51); Absolute Neutrophil Count 6.1 X10^3/uL (2.0-7.7); Basophil# 0.06 X10^3/uL; Basophil% 0.7 % (0-1); Eosinophil# 0.29 X10^3/uL; Eosinophils% 3.4 % (0-5); Hematocrit 35.9 % (37-47); Hemoglobin 11.4 g/dL (12.0-15.0); Lymphocyte # 1.72 X10^3/ul (0.83-4.51); Mean Corp Hgb Conc 31.8 g/dL (32-36); Mean Corpuscular Hgb 29.9 pg (27.0-32.0); Mean Corpuscular Volume 94.2 fL (81-99); Mean Platelet Vol. 9.5 fl (6.2-12.0); Monocyte# 0.47 X10^3/uL; Monocyte% 5.5 % (0-10); NRBC Flagged by Analyzer 0 % (0-5); Neutrophil # 6.05 X10^3/uL (2.7-7.7); Neutrophil % 70.1 % (47-70); Platelet Count 514 K/mm3 (150-450); RBC Distribution Width CV 12.4 % (11.6-14.6); RBC Distribution Width SD 42.8 fl (35.1-43.9); Red Blood Count 3.81 M/mm3 (4.2-5.4); White Blood Count 8.6 K/mm3 (4.4-11.0)
[2022-06-04 13:14] LABS: ALB/GLOB Ratio 0.6 RATIO (0.9-2.4); AST(SGOT) 38 U/L (15-37); Alanine Aminotransfer ALT/SGPT 36 U/L (13-56); Albumin, Serum 3.1 g/dL (3.2-5.0); Alkaline Phosphatase 130 U/L (45-117); Anion Gap 9 (5-15); BUN 32 mg/dL (7-18); BUN/Creat Ratio 17.8 RATIO (10-20); Calcium,Total 9.7 mg/dL (8.5-10.1); Chloride 102 mmol/L (98-107); EST Glomerular Filtration Rate 29 mL/min (>60); Est Glom Filt Rate - Afr Amer 36 mL/min (>60); Globulin 4.8 g/dL (2.2-4.2); Glucose 349 mg/dL (74-106); Potassium 4.5 mmol/L (3.5-5.1); Protein, Total 7.9 g/dL (6.4-8.2); Sodium Level 134 mmol/L (136-145)
== END | disposition home or self-care (01) ==
LOC: MTLAB 10:54
PROVIDERS: Referring Provider Family Medicine; Visit Provider Family Medicine
DX: Z01.818 Encounter for other preprocedural examination (principal)
CPT/HCPCS: 36415; 80053; 85025

== ENCOUNTER 2022-06-14 11:24 | Observation (INO) | payer MEDICARE, BC, SELFPAY ==
[2022-06-14] VITALS (10 sets, daily range): BP systolic 101–136; BP diastolic 40–65; PULSE 62–97; RESP 6–18; TEMP 36.2–37.6; O2SAT 90–100; BMI 30.2
--- NOTE | 2022-06-14 06:30 | RAD_ITS ---
STUDY: X-RAY - RIGHT ANKLE REASON FOR EXAM: Female, 71 years old. Intraoperative digital documentation views of the tibiocalcaneal arthrodesis. TECHNIQUE: 23 intraoperative digital documentation view(s) of the ankle. COMPARISON: None. FINDINGS: 23 intraoperative digital documentation views show changes of tibiocalcaneal arthrodesis . RAD/Ankle 2 Views IMPRESSION: Intraoperative digital documentation views. Electronically Signed: Alexi Chaves, at 15:43 EST ,
[2022-06-14] MEDS: Lactated Ringers 1,000 ML 15 ML IV (06:42)
[2022-06-14 06:50] LABS: Bedside Glucose 142 mg/dL (74-106)
--- NOTE | 2022-06-14 07:30 | BON_PTH ---
PATIENT: NINA HARDWICK LOC: MS3 U#:[id number] AGE/SX: 71/F ROOM: TN305 RE06/14/[address]: Dr. Avelino Rosenbaum MD : 1950 BED: 1 DIS: 06/15/2022 SPEC #: [id number] RECD: 06/14/22 12:48 STATUS: KRISTY YESSICA #: [id number] ALFRED: 06/14/22 07:[address]: Oli Peters DEPT: SURGICAL PATHOLOGY RECD BY: Nisa Cruz ENTERED: 06/14/22 13:07 SP TYPE: Bone OTHR DR: Dr. Renato Marsh MD Tissues: Bone of ankle, NOS Procedures: Decalcification bone/plaque Surgery Specimen Level III HEADER OPERATION: Tibiotalocalcaneal arthrodesis with posterior and medial PRE-OP DIAGNOSIS: Right ankle fracture TISSUE SUBMITTED: Bone right talus MICROSCOPIC DIAGNOSIS Bone right talus, excision: A piece of bone with reactive changes and callus formation. YUMIKO:estephanie 06/19/2022 MICROSCOPIC DESCRIPTION Slides are reviewed. GROSS DESCRIPTION Received in fixative is one container labeled with the patient's name and designated bone right talus. The specimen consists of a piece of bone measuring 3.0 x 2.0 x 1.5 cm. The entire specimen is submitted in one cassette after decalcification. / YUMIKO:estephanie 06/14/2022 TC:5 [facility]: [id number], [id number]
[2022-06-14] MEDS: Cefazolin 2 GM in 0.9% Normal Saline 100 ML IV (07:46)
[2022-06-14] MEDS: Bacitracin 500 UNITS/GM PACKET ×2 (09:54→11:05)
--- NOTE | 2022-06-14 11:31 | PCM.OPRPT ---
Problems Associated Problem List Diagnoses (1) Fracture of body of right talus: (2) Other acute postprocedural pain: (3) Closed dislocation of right ankle: Report of Operation Date of Procedure: 06/14/22 Pre-Operative Diagnosis: 1) Closed displaced talar body fracture with subtalar joint dislocation (Hawkin's 2) 2) Retained External Fixator Post-Operative Diagnosis: same Surgery/Procedure Performed:: 1) Removal of external fixation device 2) Open reduction with internal fixation, right talus fracture 3) Subtalar joint fusion, Right side Description of Surgical Findings:: Patient suffered a dislocation of her right subtalar joint with a talar body fracture. Patient seen in the ED closed reduction performed by ED doc. CT confirmed malrotated posterior talar body fraction within the ankle mortise. Patient underwent closed reduction with external fixation application via delta frame with attempted percutaneous pinning however posterior anterior tibiofibular ligament prevented reduction. Delta frame was applied to maintain osseous stability maintain reduction while soft tissue calm down. Patient is diabetic with hemoglobin A1c of 10. There is significant concern with initial open reduction internal fixation due to potential wound healing complications postsurgery. Decision was made to staged procedure apply an external fixator and perform definitive ORIF subtalar tissue joint fusion down the line. This was performed today and there was adequate reduction of the talus within the ankle mortise. Subtalar joint fusion was performed in a rectus alignment. Surgeon: Oli Peters ict systems test engineer: None (1. Sara Reddy 2. Samina Camacho) Type of Anesthesia: General Special Medications: Patient preoperatively received popliteal block per anesthesia Specimen's removed: Talar body fracture fragment sent to pathology Drains: No drains Estimated Blood Loss (mL): 100 cc Description of Procedure: Patient brought back the operating placed comfortably supine position on the operating room table patient induced under general anesthesia. External fixator was prepped with Betadine and removed using hand tools atraumatically. Right lower extremity was then position with a hip bump to knock out any external rotation of the limb and a well-padded thigh tourniquet was applied. Right lower extremity scrubbed prepped and draped using typical aseptic fashion. Once cleared by anesthesia right lower extremity was elevated exsanguinated tourniquet was inflated 300 mmHg. Total tourniquet time was noted to be less than 2 hours. Notably the anterior tibial calcaneal transfixion and the medial first metatarsal pin sites were curetted flushed and closed with 3-0 nylon. Should be noted that there was an anterior lateral ankle wound was forming from the initial traumatic injury this was small but created a contaminated surgical environment. The distal fibula was palpated and marked out as well as the sinus tarsi and a linear incision was drawn from the distal tip of the fibula across the sinus tarsi towards the fourth and fifth tarsometatarsal joints this incision was then extended proximally and posteriorly just posterior to the fibula to allow access for the posterior ankle joint to allow for adequate visualization and reduction of the posterior talar fragment. This incision was made with a #15 blade through epidermis dermis into subcutaneous tissue at this time any bleeders were identified and cauterized neurovascular structures were identified throughout the dissection process and protected via blunt retraction. Deeper dissection was performed with Metzenbaum dissecting scissors until the sinus tarsi was evaluated hoax tonsil was excised using combination of pickups and Metzenbaum scissors the subtalar joint was then opened should be noted that the peroneal tendon sheaths were open so that adequate retraction superior and inferior to the fibula could be performed throughout the surgical case blunt dissection was taken to the level of the posterior ankle joint where the a small posterior lateral 0.3 x 0.3 cm was removed and sent to pathology for further examination. It was removed as was too small to adequately reduce. Next a larger posterior medial fracture fragment that involved a large portion of the talar dome was noted to be dislocated and rotated in a plantarflexed fashion. Attempted manipulation of this failed due to limitation from the posterior inferior tibiofibular ligament. This ligament was freed up slightly using atraumatic technique and blunt dissection and attempt to maintain function of the ligament ligament to allow for reduction of the posterior talar body fragment. Using manual reduction and elevation with lamina spreaders the posterior talar body fracture fragment was reduced and pinned in place with a temporary fixation pin and then a screw was applied from the posterior lateral talar tubercle and posterior to anterior fashion using a 4 oh cannulated screw with a washer. This was performed using manufactures guidelines. Radiographically there is noted to be adequate reduction with a small step-off of the talar dome. Next the anterior middle and posterior facets of the subtalar joint were then prepped using exposure via lamina spreaders and all articular cartilage was removed with combination of osteotomes and an egg bur on power. Next the subtalar joint was flushed with copious amounts of normal sterile saline. And the subtype chondral cortex was fenestrated were drilled using a 2 oh drill bit combination of a guidewire for after mentioned 4 oh cannulated screws. Next from a posterior row plantar aspect to anterior dorsal aspect the subtalar joint was pinned with 2x5.0mm cannulated headless compression screw guidewires adequate positioning was confirmed with AP calcaneal axial and lateral radiographic images. The screws x2 were placed across the subtalar joint with the subtalar joint in a rectus alignment confirmed by Calcaneal axial imaging with slight valgus of the calcaneus. The screws were placed x2 across the subtalar joint and adequate Sedation and reduction of the subtalar joint was noted. This confirmed that these screws were across subtalar joint in good alignment on the lateral imaging with rectus alignment of the hindfoot noticed on calcaneal axial imaging and AP ankle imaging. No evidence of screws within the ankle joint. Should be noted that the calcaneofibular ligament was transected with exposure of the subtalar joint this was repaired with an end and repair using 2-0 Vicryl the foot held in a valgus dorsiflexed position. Augment bone graft was applied to the subtalar joint fusion sites. Final radiographs were taken and noted adequate reduction of the ankle mortise with adequate positioning of the subtalar joint and good apposition of the subtalar joint with intact hardware. Tourniquet was let down any additional bleeders were cauterized at this time. Adequate hemostasis was noted incision sites were flushed with copious amounts normal sterile saline and closed using 2-0 Vicryl to deep tissue 2-0 Vicryl to subcutaneous tissue both simple interrupted technique skin closure performed with kalpana. Tourniquet was time was noted to be less than 2 hours. Foot was cleansed and dressed with bacitracin Adaptic 4 x 4's Kerlix Monore compression posterior splint. Adequate padding was noted to prevent any pressure ulcerations to heal. Patient's was transferred to PACU vital signs stable vascular status intact all digits for further monitoring prior to transfer to the floor. Patient will likely discharge back to snf facility for prolonged nonweightbearing until adequate healing of surgical site. Patient tolerated anesthesia improved procedure well apparent satisfactory condition. No complications noted. Patient is a high risk patient for postop infection and wound formation due to poor blood glucose control. For the worst where an elective case we avoided doing any open approach but due to severity of injury and attempt to restore function of the limb open procedure was performed today. Grafts/Implants Used: Augment bone graft,1x 4.0 headed,2x 5.0 headless Stefani cannulated screws Admit VTE Documentation VTE Present on Admission: Yes VTE Mechan Device Prophylaxis: SCD's VTE Pharm Prophylaxis ordered?: Yes
[2022-06-14 11:55] LABS: Bedside Glucose 158 mg/dL (74-106)
--- NOTE | 2022-06-14 12:04 | RAD_ITS ---
STUDY: X-RAY - RIGHT ANKLE REASON FOR EXAM: Female, 71 years old. Status post orif, right talus. TECHNIQUE: 3 view(s) of the ankle. COMPARISON: Right ankle, May 26, 2022 and June 14, 2022. FINDINGS: Normal visualized distal fibula. There are lucencies secondary to screw hole seen within the mid shaft of the tibia. Normal medial and lateral malleoli. Normal tibiotalar articulation and ankle mortise. Again seen is a screw transfixing the talus. There are no 2 new screws fusing the subtalar joint. Normal tarsal bones. The visualized subtalar, talonavicular, calcaneocuboid and tarsal articulations are normal. There is again clip over the heel and lateral ankle with mild soft tissue swelling. RAD/Ankle min 3 Views IMPRESSION: Status post fusion of the talocalcaneal joints. Electronically Signed: Leandro Lemos DO at 17:01 EST ,
--- NOTE | 2022-06-14 13:22 | CASEMGMT ---
Spoke with who states plan is to dc pt tomorrow back to [facility]. Updated SW.
--- NOTE | 2022-06-14 13:55 | CASEMGMT ---
Social Work DR Peters called RN to discuss d/c. Dicussed intent to d/c tomorrow back to SNF. SW in to pt room to confirm pt wants to return to [facility]. Pt confirmed this and declined SNF list. Pt on phone during time and is aware of pt returning to SNF tomorrow as well. ELIZABETH called Santa at [facility] and it was confirmed pt is able to return. ELIZABETH put green sheet on pt chart. PLAN: [facility], when medically ready on 06/15 CALVIN Rubin
--- NOTE | 2022-06-14 13:57 | HP.PCM.HOS_ITS ---
HPI - General General Date of Admission: 06/14/22 Date of Service: 06/14/22 HPI Narrative NINA HARDWICK, is a 71 F who presents [facility] Medical History Anxiety Arthritis Back pain Bruising CPAP (continuous positive airway pressure) dependence Depression Dietary restriction Difficulty swallowing Fall Former smoker High cholesterol History of diverticulitis History of IBS History of renal disease Hoarseness Insulin dependent diabetes mellitus Leg cramps Lives in group home Migraine headache Post-menopausal Renal insufficiency Restless legs Uses wheelchair Walker as ambulation aid Wears glasses Wears hearing aid Home Medications atorvastatin 40 mg tablet 40 mg PO BID cholesterol 05/25/22 [History Last Taken 05/25/22] cyclobenzaprine 10 mg tablet 10 mg PO BID muscle relaxer 05/25/22 [History Last Taken 05/25/22] gabapentin 600 mg tablet 600 mg PO BID neuropathy 05/25/22 [History Last Taken 05/25/22] insulin glargine 100 unit/mL (3 mL) subcutaneous pen (Basaglar KwikPen U-100 Insulin) 20 unit subcut BID diabetes 05/25/22 [History Last Taken Unknown] sitagliptin phosphate 100 mg tablet (Januvia) 100 mg PO DAILY diabetes 05/25/22 [History Last Taken 05/25/22] trazodone 50 mg tablet 50 mg PO QHS sleep 05/25/22 [History Last Taken 05/24/22] enoxaparin 30 mg/0.3 mL subcutaneous syringe 30 mg (0.3 mL) subcut DAILY #12 mL 05/28/22 [Rx Last Taken 06/09/22] acetaminophen 500 mg tablet 1,000 mg PO Q8H PRN Pain 06/13/22 [History Last Taken Unknown] insulin lispro 100 unit/mL subcutaneous pen (Humalog KwikPen (U-100) Insulin) 5 unit subcut TID 06/13/22 [History Last Taken 06/12/22] oxycodone 5 mg tablet 2.5 mg PO Q6H PRN Pain 06/13/22 [History Last Taken Unknown] paroxetine HCl 40 mg tablet (Paxil) 40 mg PO DAILY 06/13/22 [History Last Taken Unknown] Allergy/AdvReac Type Severity Reaction Status Date / Time No Known Allergies Allergy Verified 06/14/22 07:18 Surgical History History of carpal tunnel surgery of left wrist History of open reduction and internal fixation (ORIF) procedure Hx of cervical discectomy Hx of rotator cuff surgery S/P hysterectomy S/P tubal ligation Social History Smoking Status: Former smoker Vital Signs Vital Signs Vital Signs: 06/14/22 06:31 06/14/22 06:31 06/14/22 11:26 Temperature 97.2 F L 98 F Temperature Source Temporal Temporal Pulse Rate 71 62 Respiratory Rate 18 6 L Respiratory Pattern Normal Normal Blood Pressure 136/57 H 117/60 Blood Pressure Mean 83 79 Blood Pressure Source Monitor Monitor Blood Pressure Position Semi-Fowlers Semi-Fowlers Blood Pressure Location Left Arm Right Arm Baseline BP 136/57 Pulse Ox 100 100 Oxygen Delivery Method Room Air Room Air Oxygen Flow Rate (L/min) 06/14/22 11:45 06/14/22 11:30 06/14/22 12:00 Temperature Temperature Source Pulse Rate 69 64 82 Respiratory Rate 12 12 16 Respiratory Pattern Blood Pressure 136/65 H 107/52 L 113/40 L Blood Pressure Mean 88 70 64 Blood Pressure Source Monitor Monitor Monitor Blood Pressure Position Semi-Fowlers Semi-Fowlers Semi-Fowlers Blood Pressure Location Right Arm Right Arm Right Arm Baseline BP 136/57 136/57 136/57 Pulse Ox 99 90 98 Oxygen Delivery Method Nasal Cannula Nasal Cannula Room Air Oxygen Flow Rate (L/min) 6 6 06/14/22 12:15 06/14/22 12:31 Temperature 97.6 F L 97.8 F Temperature Source Temporal Oral Pulse Rate 80 72 Respiratory Rate 16 18 Respiratory Pattern Blood Pressure 117/65 101/55 L Blood Pressure Mean 82 70 Blood Pressure Source Monitor Monitor Blood Pressure Position Semi-Fowlers Semi-Fowlers Blood Pressure Location Right Arm Right Arm Baseline BP 136/57 Pulse Ox 99 94 Oxygen Delivery Method Room Air Room Air Oxygen Flow Rate (L/min) Weight Weight: 182 lb Body Mass Index (BMI) 30.2 Results Lab / Micro Data Labs: Laboratory Results - last 24 hr 06/14/22 06:28: POC Glucose 142 H 06/14/22 11:35: POC Glucose 158 H
--- NOTE | 2022-06-14 14:51 | HP.PCM.HOS_ITS ---
[facility] - General General Date of Admission: 06/14/22 Date of Service: 06/14/22 Chief Complaint: Closed displaced talar body fracture with subtalar joint dislocation. [facility] Narrative NINA HARDWICK, is a 71 F who was admitted after elective surgery for closed displaced talar body fracture with subtalar joint dislocation on May 25. She was admitted at that time an external fixator was put and then was discharged. Patient is being readmitted after elective surgery today. During previous hospital stay patient had acute hypercapnic respiratory failure most likely due to anesthetic medication and narcotics after spinal anesthesia. She also has obstructive sleep apnea but she does not want to use CPAP. She states he does not like it. Her other comorbidities include diabetes mellitus type 2 complicated with diabetic neuropathy and diabetic nephropathy, anemia of chronic disease, CKD stage IIIb, dyslipidemia and depression. Patient is awake and she answers questions appropriately. She had surgery done under general anesthesia. She had preoperative popliteal nerve block. Social history: Previous smoker. Quit smoking. Family history: Nonsignificant and noncontributory to present illness and admission [facility] Medical History Anxiety Arthritis Back pain Bruising CPAP (continuous positive airway pressure) dependence Depression Dietary restriction Difficulty swallowing Fall Former smoker High cholesterol History of diverticulitis History of IBS History of renal disease Hoarseness Insulin dependent diabetes mellitus Leg cramps Lives in skilled nursing Migraine headache Post-menopausal Renal insufficiency Restless legs Uses wheelchair Walker as ambulation aid Wears glasses Wears hearing aid Home Medications atorvastatin 40 mg tablet 40 mg PO BID cholesterol 05/25/22 [History Last Taken 05/25/22] cyclobenzaprine 10 mg tablet 10 mg PO BID muscle relaxer 05/25/22 [History Last Taken 05/25/22] gabapentin 600 mg tablet 600 mg PO BID neuropathy 05/25/22 [History Last Taken 05/25/22] insulin glargine 100 unit/mL (3 mL) subcutaneous pen (Basaglar KwikPen U-100 Insulin) 20 unit subcut BID diabetes 05/25/22 [History Last Taken Unknown] sitagliptin phosphate 100 mg tablet (Januvia) 100 mg PO DAILY diabetes 05/25/22 [History Last Taken 05/25/22] trazodone 50 mg tablet 50 mg PO QHS sleep 05/25/22 [History Last Taken 05/24/22] enoxaparin 30 mg/0.3 mL subcutaneous syringe 30 mg (0.3 mL) subcut DAILY #12 mL 05/28/22 [Rx Last Taken 06/09/22] acetaminophen 500 mg tablet 1,000 mg PO Q8H PRN Pain 06/13/22 [History Last Taken Unknown] insulin lispro 100 unit/mL subcutaneous pen (Humalog KwikPen (U-100) Insulin) 5 unit subcut TID 06/13/22 [History Last Taken 06/12/22] oxycodone 5 mg tablet 2.5 mg PO Q6H PRN Pain 06/13/22 [History Last Taken Unknown] paroxetine HCl 40 mg tablet (Paxil) 40 mg PO DAILY 06/13/22 [History Last Taken Unknown] Allergy/AdvReac Type Severity Reaction Status Date / Time No Known Allergies Allergy Verified 06/14/22 07:18 Surgical History History of carpal tunnel surgery of left wrist History of open reduction and internal fixation (ORIF) procedure Hx of cervical discectomy Hx of rotator cuff surgery S/P hysterectomy S/P tubal ligation Social History Smoking Status: Former smoker ROS ROS Narrative Constitutional: No fever. Denies fatigue cardiac weakness. Coming from skilled nursing after recent hospital stay HEENT: Reports systems reviewed and no addt'l complaints, except as documented Respiratory/Chest: Denies chest pain, shortness of breath at rest or with exertion. Patient had sleep apnea. CVS: Denies history of coronary artery disease, cardiac stent/unstable angina. No arrhythmia. No PAD. Gastrointestinal: Denies coffee ground emesis, hematemesis or vomiting Genitourinary: Denies burning urination or new urinary tract symptoms Musculoskeletal: Reports joint pain and limited range of motion Neurologic: Denies seizure-like activity. No previous stroke. skin: No ulcer. No rash Endocrinology: Reports systems reviewed and no addt'l complaints, except as documented Hematologic/Lymphatic: Reports systems reviewed and no addt'l complaints, except as documented Rest 14 ROS are negative except as mentioned in HPI Vital Signs Vital Signs Vital Signs: 06/14/22 06:31 06/14/22 06:31 06/14/22 11:26 Temperature 97.2 F L 98 F Temperature Source Temporal Temporal Pulse Rate 71 62 Respiratory Rate 18 6 L Respiratory Pattern Normal Normal Blood Pressure 136/57 H 117/60 Blood Pressure Mean 83 79 Blood Pressure Source Monitor Monitor Blood Pressure Position Semi-Fowlers Semi-Fowlers Blood Pressure Location Left Arm Right Arm Baseline BP 136/57 Pulse Ox 100 100 Oxygen Delivery Method Room Air Room Air Oxygen Flow Rate (L/min) 06/14/22 11:45 06/14/22 11:30 06/14/22 12:00 Temperature Temperature Source Pulse Rate 69 64 82 Respiratory Rate 12 12 16 Respiratory Pattern Blood Pressure 136/65 H 107/52 L 113/40 L Blood Pressure Mean 88 70 64 Blood Pressure Source Monitor Monitor Monitor Blood Pressure Position Semi-Fowlers Semi-Fowlers Semi-Fowlers Blood Pressure Location Right Arm Right Arm Right Arm Baseline BP 136/57 136/57 136/57 Pulse Ox 99 90 98 Oxygen Delivery Method Nasal Cannula Nasal Cannula Room Air Oxygen Flow Rate (L/min) 6 6 06/14/22 12:15 06/14/22 12:31 Temperature 97.6 F L 97.8 F Temperature Source Temporal Oral Pulse Rate 80 72 Respiratory Rate 16 18 Respiratory Pattern Blood Pressure 117/65 101/55 L Blood Pressure Mean 82 70 Blood Pressure Source Monitor Monitor Blood Pressure Position Semi-Fowlers Semi-Fowlers Blood Pressure Location Right Arm Right Arm Baseline BP 136/57 Pulse Ox 99 94 Oxygen Delivery Method Room Air Room Air Oxygen Flow Rate (L/min) Weight Weight: 182 lb Body Mass Index (BMI) 30.2 Physical Exam Narrative Physical exam General: Alert, Oriented x3, Cooperative HEENT: Atraumatic, PERRLA, EOMI, Normocephalic Oral: Oral mucosa moist. No Gingival or Mucosal Lesions/ Ulcerations Neck: Supple, No JVD, Negative Carotid Bruits Lungs: Air entry diminished in bilateral lung bases. No crepitation/rhonchi Cardiovascular: Regular rate, Regular Rhythm, Normal S1, Normal S2, No murmurs Abdomen: Bowel Sounds Present, Soft, Non Tender, Non-Distended :Spontaneous voiding urine. No renal angle tenderness. No suprapubic tenderness. Extremities: No edema, Capillary Refill Less than 3 Seconds Skin: No rashes, No breakdown Musculoskeletal: No Tenderness to Palpation of Joints or Extremities Neurological: Cranial nerves II-XII grossly intact, DTR 2+/4 and Symmetrical, Neuro grossly intact Psych/Mental Status: Normal Affect, Appropriate. Results Lab / Micro Data Labs: Laboratory Results - last 24 hr 06/14/22 06:28: POC Glucose 142 H 06/14/22 11:35: POC Glucose 158 H Assessment & Plan Assessment/Plan (1) Closed dislocation of right ankle: (2) Fracture of body of right talus: PLAN: Plan 7-year-old female is admitted for elective definitive surgery for fracture of body of right talus. 1. Closed displaced talar body fracture with subtalar dislocation Marley 2 with retained external fixator: Patient is being admitted on [facility] floor after surgery. Patient had removal of external fixation device and ORIF of right talus fracture. Right subtalar joint fusion. P Heart rate and blood pressure in normal range. Continue IV fluid Ringer lactate. Labs ordered 2. History of obstructive sleep apnea: Patient had acute hypercapnic respiratory failure during previous admission after spinal anesthesia and anesthetic medications.atient is awake alert oriented x3. No hypoxia. CPAP ordered for night. Patient has CPAP but does not use it and does not know the setting of home CPAP 3. DM type II, CKD stage IIIb, diabetic nephropathy and diabetic polyneuropathy: Accu-Chek AC and cover with Humalog sliding scale. Patient baseline creatinine is unknown as she lives in [place] and had fracture during her stay in [place] on May 25, 2022. Her baseline creatinine had stabilized between 1.6 and 1.7 during previous hospital stay. Labs ordered. Avoid NSAID other nephrotoxic medication. Accu-Chek before meals and at bedtime cover with Humalog sliding scale. Continue home dose of Basaglar 20 twice daily and Januvia. 3. Anemia of chronic disease: During previous hospital admission, her hemoglobin is between 10 to 11 g%. Platelet count 293,000. Anemia work-up showed iron saturation 30.9%, iron 59 and TIBC low consistent with anemia of chronic disease. 4. Other multiple comorbidities include dyslipidemia, anxiety and depression: Continue patient home medication Paxil and trazodone. Patient on a statin continued. 5. VT prophylaxis moderate risk: Recommend pharmacological prophylaxis when hemostasis achieved as per discretion of tank refinisher. Lovenox 30 mg subcu daily after 24 hours of surgery. Laboratory Results 06/14/22 06:28: POC Glucose 142 H 06/14/22 11:35: POC Glucose 158 H Charges/Coding Visit Charges Inpatient E&M: 14728 Init Hosp L3
--- NOTE | 2022-06-14 15:35 | CPS ---
RT brought v-60 to room for placment for ordered cpap at night. Patient refused cpap, stated that she doesnt want to wear here. Patient stated that she went through this last admission and doesnt want to be asked to wear cpap.
[2022-06-14 15:41] LABS: Absolute Lymphocyte Count 0.93 X10^3/uL (0.83-4.51); Basophil# 0.04 X10^3/uL; Basophil% 0.3 % (0-1); Hemoglobin 9.9 g/dL (12.0-15.0); Lymphocyte # 0.93 X10^3/ul (0.83-4.51); Lymphocyte % 6.6 % (19-41); Mean Corp Hgb Conc 30.9 g/dL (32-36); Mean Corpuscular Hgb 30.3 pg (27.0-32.0); Mean Corpuscular Volume 97.9 fL (81-99); Mean Platelet Vol. 9.1 fl (6.2-12.0); Monocyte# 0.12 X10^3/uL; Monocyte% 0.8 % (0-10); NRBC Flagged by Analyzer 0 % (0-5); Neutrophil # 12.99 X10^3/uL (2.7-7.7); Neutrophil % 91.7 % (47-70); Platelet Count 496 K/mm3 (150-450); RBC Distribution Width SD 46.5 fl (35.1-43.9); Red Blood Count 3.27 M/mm3 (4.2-5.4); White Blood Count 14.2 K/mm3 (4.4-11.0)
[2022-06-14 16:04] LABS: Anion Gap 7 (5-15); BUN 25 mg/dL (7-18); BUN/Creat Ratio 14.2 RATIO (10-20); Calcium,Total 9.2 mg/dL (8.5-10.1); Chloride 105 mmol/L (98-107); Creatinine, Serum 1.76 mg/dL (0.55-1.02); EST Glomerular Filtration Rate 30 mL/min (>60); Est Glom Filt Rate - Afr Amer 37 mL/min (>60); Estimated Creatinine Clearance 26.38 ml/min; Glucose 224 mg/dL (74-106); Potassium 4.4 mmol/L (3.5-5.1); Sodium Level 140 mmol/L (136-145)
[2022-06-14] MEDS: Insulin Lispro 100 UNIT/ML INSULN.PEN SC ×3 (16:34→21:23)
[2022-06-14] MEDS: Lactated Ringers 1,000 ML 75 ML IV (16:34)
[2022-06-14] MEDS: oxyCODONE 5 MG Tablet 2.5 MG PO (21:18)
[2022-06-14] MEDS: cycloBENZAPRine HCl 10 MG Tablet PO (21:18)
[2022-06-14] MEDS: Acetaminophen 500 MG Tablet 1000 MG PO (21:18)
[2022-06-14] MEDS: traZODone 50 MG Tablet PO (21:19)
[2022-06-14] MEDS: Atorvastatin Calcium 40 MG Tablet PO (21:22)
[2022-06-14] MEDS: Gabapentin 600 MG Tablet PO (21:22)
[2022-06-14] MEDS: Insulin Glargine-YFGN 100 UNIT/ML Pen 20 UNIT SC (21:24)
[2022-06-14 22:25] LABS: Bedside Glucose 375 mg/dL (74-106)
[2022-06-14 22:30] LABS: Bedside Glucose 217 mg/dL (74-106)
[2022-06-15 04:00] VITALS: BP 110/46; PULSE 70; RESP 18; TEMP 37.2; O2SAT 97
[2022-06-15] MEDS: Insulin Lispro 100 UNIT/ML INSULN.PEN SC ×4 (04:49→11:49)
[2022-06-15] MEDS: oxyCODONE 5 MG Tablet 2.5 MG PO ×2 (04:56→11:01)
[2022-06-15 05:10] LABS: Bedside Glucose 222 mg/dL (74-106)
[2022-06-15 07:31] LABS: Absolute Lymphocyte Count 1.83 X10^3/uL (0.83-4.51); Absolute Neutrophil Count 13.9 X10^3/uL (2.0-7.7); Basophil# 0.02 X10^3/uL; Basophil% 0.1 % (0-1); Hematocrit 25.4 % (37-47); Lymphocyte # 1.83 X10^3/ul (0.83-4.51); Mean Corp Hgb Conc 31.5 g/dL (32-36); Mean Corpuscular Hgb 30.5 pg (27.0-32.0); Mean Corpuscular Volume 96.9 fL (81-99); Mean Platelet Vol. 9.9 fl (6.2-12.0); Monocyte# 0.83 X10^3/uL; NRBC Flagged by Analyzer 0 % (0-5); Neutrophil # 13.91 X10^3/uL (2.7-7.7); Neutrophil % 83.2 % (47-70); Platelet Count 407 K/mm3 (150-450); RBC Distribution Width CV 12.9 % (11.6-14.6); RBC Distribution Width SD 45.3 fl (35.1-43.9); Red Blood Count 2.62 M/mm3 (4.2-5.4); White Blood Count 16.7 K/mm3 (4.4-11.0)
[2022-06-15 07:53] LABS: Anion Gap 8 (5-15); BUN 27 mg/dL (7-18); BUN/Creat Ratio 16.6 RATIO (10-20); Calcium,Total 8.6 mg/dL (8.5-10.1); Chloride 106 mmol/L (98-107); Creatinine, Serum 1.63 mg/dL (0.55-1.02); EST Glomerular Filtration Rate 33 mL/min (>60); Est Glom Filt Rate - Afr Amer 40 mL/min (>60); Estimated Creatinine Clearance 28.49 ml/min; Glucose 248 mg/dL (74-106); Potassium 4.3 mmol/L (3.5-5.1); Sodium Level 139 mmol/L (136-145)
[2022-06-15] MEDS: LINAGLIPTIN 5 MG TABLET PO (08:12)
[2022-06-15] MEDS: cycloBENZAPRine HCl 10 MG Tablet PO (08:13)
[2022-06-15] MEDS: Paroxetine 20 MG Tablet 40 MG PO (08:13)
[2022-06-15] MEDS: Gabapentin 600 MG Tablet PO (08:13)
[2022-06-15] MEDS: Enoxaparin 30 MG/0.3 ML Syringe SC (08:13)
[2022-06-15] MEDS: Insulin Glargine-YFGN 100 UNIT/ML Pen 20 UNIT SC (08:14)
[2022-06-15 08:41] LABS: Bedside Glucose 204 mg/dL (74-106)
--- NOTE | 2022-06-15 09:09 | PN_ITS ---
Subjective Subjective Patient was seen this morning for follow up on right foot surgery s/p ORIF talus fx and STJ arthrodesis on 06/14/22. She is resting in bed, no new complaints, pain is controlled. No complaints of f/c/n/v. Objective Data Objective Data Vital Signs: Vital Signs Temp Pulse Resp BP Pulse Ox O2 Del Method O2 Flow Rate 98.9 F 70 18 110/46 L 97 Room Air 6 06/15/22 04:00 06/15/22 04:00 06/15/22 04:00 06/15/22 04:00 06/15/22 04:00 06/15/22 04:00 06/14/22 11:45 Oxygen Flow Rate (L/min) 6 Oxygen Delivery Method Room Air Weight: 82.554 kg Body Mass Index (BMI) 30.2 Intake & Output: Intake and Output for Last 24 Hours 06/13/22 06/14/22 06/15/22 23:59 23:59 23:59 Intake Total 1658.75 / 1658.75 916.25 / 916.25 Output Total 905 / 905 500 / 500 Balance 753.75 / 753.75 416.25 / 416.25 Lab / Micro Data Result Diagrams: 06/15/22 05:20 06/15/22 05:20 Labs: Laboratory Results - last 24 hr 06/14/22 11:35: POC Glucose 158 H 06/14/22 15:26: WBC 14.2 H, RBC 3.27 L, Hgb 9.9 L, Hct 32.0 L, MCV 97.9, MCH 30.3, MCHC 30.9 L, RDW Std Deviation 46.5 H, RDW Coeff of Barrie 13.0, Plt Count 496 H, MPV 9.1, Immature Gran % (Auto) 0.600, Neut % (Auto) 91.7 H, Lymph % (Auto) 6.6 L, [place] % (Auto) 0.8, Eos % (Auto) 0.0, Baso % (Auto) 0.3, Absolute Neuts (auto) 13.0 H, Absolute Lymphs (auto) 0.93, Nucleated RBC % 0 06/14/22 15:26: Sodium 140, Potassium 4.4, Chloride 105, Carbon Dioxide 28.0, Anion Gap 7, BUN 25 H, Creatinine 1.76 H, Estim Creat Clear Calc 26.38, Est GFR (MDRD) Af Amer 37 L, Est GFR (MDRD) Non-Af 30 L, BUN/Creatinine Ratio 14.2, Glucose 224 H, Calcium 9.2 06/14/22 16:24: POC Glucose 217 H 06/14/22 21:14: POC Glucose 375 H 06/15/22 04:48: POC Glucose 222 H 06/15/22 05:20: WBC 16.7 H, RBC 2.62 L, Hgb 8.0 L, Hct 25.4 L, MCV 96.9, MCH 30.5, MCHC 31.5 L, RDW Std Deviation 45.3 H, RDW Coeff of Barrie 12.9, Plt Count 407, MPV 9.9, Immature Gran % (Auto) 0.700, Neut % (Auto) 83.2 H, Lymph % (Auto) 11.0 L, [place] % (Auto) 5.0, Eos % (Auto) 0.0, Baso % (Auto) 0.1, Absolute Neuts (auto) 13.9 H, Absolute Lymphs (auto) 1.83, Nucleated RBC % 0 06/15/22 05:20: Sodium 139, Potassium 4.3, Chloride 106, Carbon Dioxide 25.0, Anion Gap 8, BUN 27 H, Creatinine 1.63 H, Estim Creat Clear Calc 28.49, Est GFR (MDRD) Af Amer 40 L, Est GFR (MDRD) Non-Af 33 L, BUN/Creatinine Ratio 16.6, Gl ucose 248 H, Calcium 8.6 06/15/22 08:05: POC Glucose 204 H Radiography Diagnostic Testing: Radiology Impression Ankle X-Ray 06/14/22 06:30 IMPRESSION: Intraoperative digital documentation views. Electronically Signed: Alexi Chaves, at 15:43 EST , Ankle X-Ray 06/14/22 12:04 IMPRESSION: Status post fusion of the talocalcaneal joints. Electronically Signed: Leandro Lemos DO at 17:01 EST , Physical Exam Narrative Right foot/ankle/leg - dressing/splint clean, dry and intact, no strikethough, she is able to wiggle toes, sensation intact, CFT < 2 seconds to all toes, no evidence of infection or DVT. Const alert, oriented x3 and no apparent distress Assessment & Plan Assessment/Plan (1) Closed dislocation of right ankle: PLAN: Plan s/p ORIF talus and STJ arthrodesis, right - on 06/14/22 Keep dressing/splint clean, dry and intact. No weightbearing right foot. Keep right foot elevated. Pain management - Oxycodone 2.5mg PO q 6 hours for moderate pain (4-6/10) and 5mg for severe pain (7-10/10). DVT Prophylaxis: Lovenox 30mg once daily subc. Follow up with Dr. Peters at [facility] this week for post op check, sooner if needed.
[2022-06-15 09:15] VITALS: BP 132/70; PULSE 84; RESP 16; TEMP 36.7; O2SAT 99
--- NOTE | 2022-06-15 09:32 | PCM.TXEXTCAR ---
Diet Diet Order/Speech Therapy: 06/14/22 15:37 ADA [Diet: Consistent Carb - Calorie Controlled] Is pt able to select menu?: Yes How many daily calories?: 1800 calorie Routine Orders/Code Status Suppository Type: Dulcolax 10mg Suppository Frequency: Daily PRN Code Status: Full Code Wound(s) RIGHT FOOT: Wound Type: Surgical Incision Therapies Weight Bearing: Non weight bearing Physical Therapy: Eval and Treat Occupational Therapy: Eval and Treat Problem/Diagnosis (1) Closed dislocation of right ankle: Status: Acute Code(s): S93.04XA - Dislocation of right ankle joint, initial encounter (2) Fracture of body of right talus: Status: Acute Code(s): S92.121A - Displaced fracture of body of right talus, initial encounter for closed fracture (3) Other acute postprocedural pain: Status: Acute Code(s): G89.18 - Other acute postprocedural pain Plan 71-year-old female is admitted for elective definitive surgery for fracture of body of right talus. 1. Closed displaced talar body fracture with subtalar dislocation Marley 2 with retained external fixator: Patient is being admitted on [facility] floor after surgery. Patient had removal of external fixation device and ORIF of right talus fracture. Right subtalar joint fusion. P Heart rate and blood pressure in normal range. Continue IV fluid Ringer lactate. Labs ordered 2. History of obstructive sleep apnea: Patient had acute hypercapnic respiratory failure during previous admission after spinal anesthesia and anesthetic medications.atient is awake alert oriented x3. No hypoxia. CPAP ordered for night. Patient has CPAP but does not use it and does not know the setting of home CPAP 3. DM type II, CKD stage IIIb, diabetic nephropathy and diabetic polyneuropathy: Accu-Chek AC and cover with Humalog sliding scale. Patient baseline creatinine is unknown as she lives in [place] and had fracture during her stay in [place] on May 25, 2022. Her baseline creatinine had stabilized between 1.6 and 1.7 during previous hospital stay. Labs ordered. Avoid NSAID other nephrotoxic medication. Accu-Chek before meals and at bedtime cover with Humalog sliding scale. Continue home dose of Basaglar 20 twice daily and Januvia. 3. Anemia of chronic disease: During previous hospital admission, her hemoglobin is between 10 to 11 g%. Platelet count 293,000. Anemia work-up showed iron saturation 30.9%, iron 59 and TIBC low consistent with anemia of chronic disease. 4. Other multiple comorbidities include dyslipidemia, anxiety and depression: Continue patient home medication Paxil and trazodone. Patient on a statin continued. 5. VT prophylaxis moderate risk: Recommend pharmacological prophylaxis when hemostasis achieved as per discretion of harness placer. Lovenox 30 mg subcu daily after 24 hours of surgery. Allergies/Procedures Done in Hospital Allergies No Known Allergies Allergy (Verified 06/14/22 07:18) Type of Care/Length of Stay Estimated LOS: Convalescent Care Less Than 30 days Type of Care Needed: Skilled Rehab Potential: Good Prognosis: Good Additional Orders/Day of Discharge Day of Discharge: 06/15/22 Discharge Plan Admission Admit Date/Time: 06/14/22 11:24 Primary Reason for Your Visit: Right talus body fracture with subtalar dislocation Attending Provider: Avelino Rosenbaum Primary Care Provider: Renato Marsh Consulting Providers: Avelino Rosenbaum ; Oli Peters Discharge Orders/Prescriptions Prescriptions: New insulin lispro [Humalog KwikPen Insulin] 100 unit/mL Insulin Pen See Protocol subcut ACHS Qty: 0 0RF Protocol: 3. Sliding Scale Insulin Med Dosing Condition: 150-189 mg/dl = 1 unit Condition: 190-229 mg/dl = 2 units Condition: 230-269 mg/dl = 3 units Condition: 270-309 mg/dl = 4 units Condition: 310-349 mg/dl = 5 units Condition: 350-399 mg/dl = 6 units Condition: 400-449 mg/dl = 7 units Condition: Greater than 449 call physician Protocol Text: - Use for Total Daily Dose of Insulin 37-55 units - Obsese, infected, or steroid patients MEDIUM DOSING ALGORITHIM ascorbic acid (vitamin C) 500 mg tablet 500 mg PO BID Qty: 60 0RF ferrous sulfate 325 mg (65 mg iron) tablet,delayed release (DR/EC) 325 mg PO QODAY Qty: 30 1RF Continued cyclobenzaprine 10 mg tablet 10 mg PO BID Label Comments: TAKE 1 TABLET BY MOUTH TWICE DAILY atorvastatin 40 mg tablet 40 mg PO BID Label Comments: TAKE 1 AND 1/2 TABLETS BY MOUTH EVERY DAY gabapentin 600 mg tablet 600 mg PO BID Label Comments: TAKE 1 TABLET BY MOUTH TWICE DAILY trazodone 50 mg tablet 50 mg PO QHS Label Comments: TAKE 1 TABLET BY MOUTH EVERY DAY AT BEDTIME Januvia 100 mg tablet 100 mg PO DAILY Label Comments: TAKE 1 TABLET BY MOUTH EVERY DAY insulin glargine [Basaglar KwikPen U-100 Insulin] 100 unit/mL (3 mL) insulin pen 20 unit subcut BID Label Comments: ADMINISTER 20 UNITS UNDER THE SKIN TWICE DAILY IN THE MORNING AND AT BEDTIME enoxaparin 30 mg/0.3 mL syringe 30 mg subcut DAILY Qty: 12 0RF acetaminophen 500 mg Tablet 1,000 mg PO Q8H PRN (Reason: Pain) paroxetine HCl [Paxil] 40 mg Tablet 40 mg PO DAILY insulin lispro [Humalog KwikPen Insulin] 100 unit/mL Insulin Pen 5 unit SUBCUT TID oxycodone 5 mg tablet 2.5 mg PO Q6H PRN (Reason: Pain) Referrals / Follow Up: Renato Marsh MD [Primary Care Provider] - Oli Peters DPM [Med Staff - Active Staff] - Within 2 Weeks Disposition Disposition (needs filled in before D/C Order can be placed): [facility]
--- NOTE | 2022-06-15 09:36 | DS.PCM_ITS ---
Providers Date of Admission: 06/14/22 Date of Discharge: 06/15/22 Primary Care Physician: Dr. Renato Marsh MD Consultations 06/14/22 12:32 Consult: Hospitalist Routine Consulting Provider: Avelino Rosenbaum Reason for Consult: medical management EMERGENT Consult: No MD Notified: Yes Date Notified: 06/14/22 Time Notified: 13:14 Method of Notification: Text Reason For Visit: RT TIBIO TALO CALCANEAL ARTHRODESIS Diagnosis Discharge Diagnosis (1) Closed dislocation of right ankle: Status: Acute Code(s): S93.04XA - Dislocation of right ankle joint, initial encounter (2) Fracture of body of right talus: Status: Acute Code(s): S92.121A - Displaced fracture of body of right talus, initial encounter for negrito sed fracture (3) Other acute postprocedural pain: Status: Acute Code(s): G89.18 - Other acute postprocedural pain Plan 71-year-old female is admitted for elective definitive surgery for fracture of body of right talus. 1. Closed displaced talar body fracture with subtalar dislocation Marley 2 with retained external fixator: Patient is being admitted on [facility] floor after surgery. Patient had removal of external fixation device and ORIF of right talus fracture. Right subtalar joint fusion. P Heart rate and blood pressure in normal range. Continue IV fluid Ringer lactate. Labs ordered 06/15: Patient has Palmer catheter in order to discontinue it. Hemoglobin dropped from baseline 11.4-8.0. Acute anemia of blood loss from surgery. Patient discharged on ferrous sulfate and ascorbic acid. Follow with PCP. Pain medication to be given by clerk telegraph service. Discussed with Dr. Nelson. Follow-up with Dr. Oli Peters in 2 weeks. 2. History of obstructive sleep apnea: Patient had acute hypercapnic respiratory failure during previous admission after spinal anesthesia and anesthetic medications.atient is awake alert oriented x3. No hypoxia. CPAP ordered for night. Patient has CPAP but does not use it and does not know the setting of home CPAP 3. DM type II, CKD stage IIIb, diabetic nephropathy and diabetic polyneuropathy: Accu-Chek AC and cover with Humalog sliding scale. Patient baseline creatinine is unknown as she lives in [place] and had fracture during her stay in [place] on May 25, 2022. Her baseline creatinine had stabilized between 1.6 and 1.7 during previous hospital stay. Labs ordered. Avoid NSAID other nephrotoxic medication. Accu-Chek before meals and at bedtime cover with Humalog sliding scale. Continue home dose of Basaglar 20 twice daily and Januvia. 06/15: Glucose 204. Patient on Basaglar, Januvia and Humalog insulin. Follow-up Accu-Cheks correctional sliding scale. Creatinine is better than baseline. 3. Anemia of chronic disease: During previous hospital admission, her hemoglobin is between 10 to 11 g%. Platelet count 293,000. Anemia work-up showed iron saturation 30.9%, iron 59 and TIBC low consistent with anemia of chronic disease. 4. Other multiple comorbidities include dyslipidemia, anxiety and depression: Continue patient home medication Paxil and trazodone. Patient on a statin continued. 5. VT prophylaxis moderate risk: Recommend pharmacological prophylaxis when hemostasis achieved as per discretion of clerk telegraph service. Lovenox 30 mg subcu daily after 24 hours of surgery. Discharge medication reconciliation done. Discharge follow-up instructions completed. Discharge process discussed with the patient and all questions were answered to patient's satisfaction. Total time spent, exact 35 minutes on discharge meds reconciliation, examination, coordination of care with nurses and ancillary staff, review of i maging and blood test and discussion with the patient on follow-up instructions. Medications at Discharge Home Medications atorvastatin 40 mg tablet 40 mg PO BID cholesterol 05/25/22 cyclobenzaprine 10 mg tablet 10 mg PO BID muscle relaxer 05/25/22 gabapentin 600 mg tablet 600 mg PO BID neuropathy 05/25/22 insulin glargine 100 unit/mL (3 mL) subcutaneous pen (Basaglar KwikPen U-100 Insulin) 20 unit subcut BID diabetes 05/25/22 sitagliptin phosphate 100 mg tablet (Januvia) 100 mg PO DAILY diabetes 05/25/22 trazodone 50 mg tablet 50 mg PO QHS sleep 05/25/22 enoxaparin 30 mg/0.3 mL subcutaneous syringe 30 mg (0.3 mL) subcut DAILY #12 mL 05/28/22 acetaminophen 500 mg tablet 1,000 mg PO Q8H PRN Pain 06/13/22 insulin lispro 100 unit/mL subcutaneous pen (Humalog KwikPen (U-100) Insulin) 5 unit subcut TID 06/13/22 oxycodone 5 mg tablet 2.5 mg PO Q6H PRN Pain 06/13/22 paroxetine HCl 40 mg tablet (Paxil) 40 mg PO DAILY 06/13/22 ascorbic acid (vitamin C) 500 mg tablet 500 mg PO BID #60 tabs 06/15/22 ferrous sulfate 325 mg (65 mg iron) tablet,delayed release 325 mg PO QODAY #30 tabs 06/15/22 insulin lispro 100 unit/mL subcutaneous pen (Humalog KwikPen (U-100) Insulin) See Protocol subcut ACHS #0 mL 06/15/22 Physical Exam Narrative Seen and examined. No acute complaint. Physical exam General: Alert, Oriented x3, Cooperative HEENT: Atraumatic, PERRLA, EOMI, Normocephalic Oral: Oral mucosa moist. No Gingival or Mucosal Lesions/ Ulcerations Neck: Supple, No JVD, Negative Carotid Bruits Lungs: Air entry diminished in bilateral lung bases. No crepitation/rhonchi Cardiovascular: Regular rate, Regular Rhythm, Normal S1, Normal S2, No murmurs Abdomen: Bowel Sounds Present, Soft, Non Tender, Non-Distended : Palmer catheter draining clear urine.. No renal angle tenderness. No suprapubic tenderness. Extremities: No edema, Capillary Refill Less than 3 Seconds Skin: No rashes, No breakdown Musculoskeletal: No Tenderness to Palpation of Joints or Extremities Neurological: Cranial nerves II-XII grossly intact, DTR 2+/4 and Symmetrical, Neuro grossly intact Psych/Mental Status: Normal Affect, Appropriate. Weight / BMI Weight Weight: 182 lb Body Mass Index (BMI) 30.2 ABG / Lab / Microbiology Data Result Diagrams: 06/15/22 05:20 06/15/22 05:20 Laboratory: Laboratory Results - last 24 hr 06/14/22 11:35: POC Glucose 158 H 06/14/22 15:26: WBC 14.2 H, RBC 3.27 L, Hgb 9.9 L, Hct 32.0 L, MCV 97.9, MCH 30.3, MCHC 30.9 L, RDW Std Deviation 46.5 H, RDW Coeff of Barrie 13.0, Plt Count 496 H, MPV 9.1, Immature Gran % (Auto) 0.600, Neut % (Auto) 91.7 H, Lymph % (Auto) 6.6 L, [place] % (Auto) 0.8, Eos % (Auto) 0.0, Baso % (Auto) 0.3, Absolute Neuts (auto) 13.0 H, Absolute Lymphs (auto) 0.93, Nucleated RBC % 0 06/14/22 15:26: Sodium 140, Potassium 4.4, Chloride 105, Carbon Dioxide 28.0, Anion Gap 7, BUN 25 H, Creatinine 1.76 H, Estim Creat Clear Calc 26.38, Est GFR (MDRD) Af Amer 37 L, Est GFR (MDRD) Non-Af 30 L, BUN/Creatinine Ratio 14.2, Glucose 224 H, Calcium 9.2 06/14/22 16:24: POC Glucose 217 H 06/14/22 21:14: POC Glucose 375 H 06/15/22 04:48: POC Glucose 222 H 06/15/22 05:20: WBC 16.7 H, RBC 2.62 L, Hgb 8.0 L, Hct 25.4 L, MCV 96.9, MCH 30.5, MCHC 31.5 L, RDW Std Deviation 45.3 H, RDW Coeff of Barrie 12.9, Plt Count 407, MPV 9.9, Immature Gran % (Auto) 0.700, Neut % (Auto) 83.2 H, Lymph % (Auto) 11.0 L, [place] % (Auto) 5.0, Eos % (Auto) 0.0, Baso % (Auto) 0.1, Absolute Neuts (auto) 13.9 H, Absolute Lymphs (auto) 1.83, Nucleated RBC % 0 06/15/22 05:20: Sodium 139, Potassium 4.3, Chloride 106, Carbon Dioxide 25.0, Anion Gap 8, BUN 27 H, Creatinine 1.63 H, Estim Creat Clear Calc 28.49, Est GFR (MDRD) Af Amer 40 L, Est GFR (MDRD) Non-Af 33 L, BUN/Creatinine Ratio 16.6, Glucose 248 H, Calcium 8.6 06/15/22 08:05: POC Glucose 204 H Radiography Diagnostic Testing: Radiology Impression Ankle X-Ray 06/14/22 06:30 IMPRESSION: Intraoperative digital documentation views. Electronically Signed: Alexi Chaves, at 15:43 EST , Ankle X-Ray 06/14/22 12:04 IMPRESSION: Status post fusion of the talocalcaneal joints. Electronically Signed: Leandro Lemos at 17:01 EST , Meaningful Use Info Meaningful Use Diagnoses (Choose all that apply): None applicable Discharge Plan Admission Admit Date/Time: 06/14/22 11:24 Primary Reason for Your Visit: Right talus body fracture with subtalar dislocation Attending Provider: Avelino Rosenbaum Primary Care Provider: Renato Marsh Consulting Providers: Avelino Rosenbaum ; Oli Peters Discharge Orders/Prescriptions Prescriptions: New insulin lispro [Humalog KwikPen Insulin] 100 unit/mL Insulin Pen See Protocol subcut ACHS Qty: 0 0RF Protocol: 3. Sliding Scale Insulin Med Dosing Condition: 150-189 mg/dl = 1 unit Condition: 190-229 mg/dl = 2 units Condition: 230-269 mg/dl = 3 units Condition: 270-309 mg/dl = 4 units Condition: 310-349 mg/dl = 5 units Condition: 350-399 mg/dl = 6 units Condition: 400-449 mg/dl = 7 units Condition: Greater than 449 call physician Protocol Text: - Use for Total Daily Dose of Insulin 37-55 units - Obsese, infected, or steroid patients MEDIUM DOSING ALGORITHIM ascorbic acid (vitamin C) 500 mg tablet 500 mg PO BID Qty: 60 0RF ferrous sulfate 325 mg (65 mg iron) tablet,delayed release (DR/EC) 325 mg PO QODAY Qty: 30 1RF Continued cyclobenzaprine 10 mg tablet 10 mg PO BID Label Comments: TAKE 1 TABLET BY MOUTH TWICE DAILY atorvastatin 40 mg tablet 40 mg PO BID Label Comments: TAKE 1 AND 1/2 TABLETS BY MOUTH EVERY DAY gabapentin 600 mg tablet 600 mg PO BID Label Comments: TAKE 1 TABLET BY MOUTH TWICE DAILY trazodone 50 mg tablet 50 mg PO QHS Label Comments: TAKE 1 TABLET BY MOUTH EVERY DAY AT BEDTIME Januvia 100 mg tablet 100 mg PO DAILY Label Comments: TAKE 1 TABLET BY MOUTH EVERY DAY insulin glargine [Basaglar KwikPen U-100 Insulin] 100 unit/mL (3 mL) insulin pen 20 unit subcut BID Label Comments: ADMINISTER 20 UNITS UNDER THE SKIN TWICE DAILY IN THE MORNING AND AT BEDTIME enoxaparin 30 mg/0.3 mL syringe 30 mg subcut DAILY Qty: 12 0RF acetaminophen 500 mg Tablet 1,000 mg PO Q8H PRN (Reason: Pain) paroxetine HCl [Paxil] 40 mg Tablet 40 mg PO DAILY insulin lispro [Humalog KwikPen Insulin] 100 unit/mL Insulin Pen 5 unit SUBCUT TID oxycodone 5 mg tablet 2.5 mg PO Q6H PRN (Reason: Pain) Referrals / Follow Up: Oli Peters DPM [Med Staff - Active Staff] - Within 2 Weeks Renato Marsh MD [Primary Care Provider] - Disposition Disposition (needs filled in before D/C Order can be placed): Half-Way Facility Charges/Coding Visit Charges Inpatient E&M: 83419 Disch Hosp >30min
[2022-06-15] MEDS: Acetaminophen 500 MG Tablet 1000 MG PO (11:01)
[2022-06-15 12:21] LABS: Bedside Glucose 247 mg/dL (74-106)
== END 2022-06-15 14:18 | disposition skilled nursing facility (03) ==
LOC: SDC 12:25 → MS3 12:25
PROVIDERS: Admitting Provider Podiatrist; PCP Internal Medicine; Referring Provider Podiatrist; Visit Provider Internal Medicine
PROC: (CPT 28725; principal; 2022-06-14 07:15)
DX: S92.121A Displaced fracture of body of right talus, initial encounter for closed fracture (principal); E11.22 Type 2 diabetes mellitus with diabetic chronic kidney disease; E11.42 Type 2 diabetes mellitus with diabetic polyneuropathy; Z79.4 Long term (current) use of insulin; N18.32 Chronic kidney disease, stage 3b; Z87.891 Personal history of nicotine dependence; D63.1 Anemia in chronic kidney disease; F32.A Depression, unspecified; G47.33 Obstructive sleep apnea (adult) (pediatric); Z79.01 Long term (current) use of anticoagulants; E78.00 Pure hypercholesterolemia, unspecified; Z79.899 Other long term (current) drug therapy; Z79.84 Long term (current) use of oral hypoglycemic drugs; X58.XXXA Exposure to other specified factors, initial encounter
CPT/HCPCS: 28725; 20694; 01480; 28445; 64445; 36415; 73600; 73610; 76000; 80048; 82962; 85025; 87426; 88304; 88305; 88311; 96360; 96361; 96372; 97162; 97165; 99221; C1776; J7120; G0378; J2405